=== PATIENT | female | born 1950 | race Caucasian/White ===

== ENCOUNTER 2018-12-01 07:20 | Day surgery (SDC) | payer OTHER ==
[2018-12-01] MEDS ORDERED: NA CHLORIDE 0.9% 1,000 ML ONE (07:52)
[2018-12-01] MEDS ORDERED: CEFAZOLIN/SWI 1gm 1 GM/10 ML SYR ONE (07:52)
[2018-12-01] MEDS ORDERED: LIDOCAINE 2% MPF 5 ML VIAL ONE (08:04)
[2018-12-01] MEDS ORDERED: FENTANYL CITR 100 MCG/2 ML ONE (08:04)
[2018-12-01] MEDS ORDERED: MIDAZOLAM HCL 2 MG/2 ML INJ ONE (08:04)
[2018-12-01] MEDS ORDERED: PROPOFOL 200 MG/20 ML VIAL IV ONE (08:04)
[2018-12-01] MEDS ORDERED: ONDANSETRON 4 MG/2 ML VIAL ONE (08:05)
[2018-12-01] MEDS ORDERED: EPHEDRINE SULF 50 MG/ML VIAL ONE (09:08)
[2018-12-01] MEDS ORDERED: HYDROCODONE/APAP 7.5/325 MG TAB ONE (10:26)
--- NOTE | 2018-12-01 19:23 | OP ---
Date of Procedure: 12/01/2018 Surgeon: Giancarlo Li MD Preoperative Diagnosis: Back mass. Postoperative Diagnosis: Sebaceous cyst. Procedure Performed: Wide excision of back mass 6 x 4 cm with layered closure. Estimated Blood Loss: Minimal. Specimen: Back mass. Findings: Sebaceous cyst. Anesthesia: General. Complications: None. Disposition: The patient tolerated the procedure in stable condition, taken to Recovery in good gene ral condition. Description Of Procedure: The patient was brought to the OR and placed in supine position. General anesthesia was begun. The patient was placed in the right lateral position, prepped and draped in [facility] sterile fashion. Marcaine 0.5% was infiltrated locally. A 15-blade was used to make a 6 x 4 cm incision to excise this large sebaceous cyst with a punctum in the middle. The entire cyst excised i n 1 piece. Sent to Pathology. Wound irrigated. Bleeding controlled with cautery. Flaps created. Then 2-0 chromic used to approximate subcutaneous tissue and 2-0 nylon used to close the skin in interrupted fashion. Sterile dressing was applied. The patient was awakened and taken to Recovery i n good general condition. /MODL Voice ID: [id number] Report ID: [id number]
--- NOTE | 2018-12-01 19:29 | DS ---
Date of Discharge: 12/01/2018 The patient will go to Day Surgery and home when stable. Disposition: Home. Condition: Stable. Discharge Instructions: Resume home medications and diet. Activities are tolerated. No heavy lifti ng. Remove outer dressing in 2 days. Shower. Keep wound clean and dry. Follow up in my office in 2 weeks. Call for appointment. Tylenol No. 3 one tablet p.o. q.4 p.r.n. pain, Cipro 5 mg p.o. q.12. /MODL Voice ID: [id number] Report ID: [id number]
== END 2018-12-01 10:35 | disposition home or self-care (01) ==
LOC: OR 07:20
PROVIDERS: ATTEND Surgery
PROC: 0JB70ZZ Excision of Back Subcutaneous Tissue and Fascia, Open Approach (ICD-10-PCS; principal; 2018-12-01 08:30)
DX: L72.0 Epidermal cyst (principal); E11.9 Type 2 diabetes mellitus without complications; E78.2 Mixed hyperlipidemia; I11.9 Hypertensive heart disease without heart failure; I67.2 Cerebral atherosclerosis; F17.210 Nicotine dependence, cigarettes, uncomplicated; Z79.4 Long term (current) use of insulin; Z79.899 Other long term (current) drug therapy; Z79.82 Long term (current) use of aspirin
CPT/HCPCS: 11406; 12032; 82962 ×2; 88304; J2704; J2250; J3010; J0690; J7030; J2405

== ENCOUNTER 2021-06-06 10:03 | Inpatient (IN) | payer OTHER ==
[2021-06-06 10:48] LABS: Absolute Lymphocytes (CBC) 1.5 K/uL (0.7-4.9); Basophils % 0.4 % (0-1.3); Hematocrit 49.6 % (36.0-45.0); Lymphocytes % 6.5 % (15.3-44.8); RBC Red Blood Cell Count 5.42 M/uL (3.86-4.86)
[2021-06-06 10:49] LABS: Protime INR 1.09
[2021-06-06] MEDS ORDERED: NA CHLORIDE 0.9% 500 ML ONE (10:49)
[2021-06-06 10:50] LABS: Urine Blood Trace-lysed (Negative); Urine Glucose Negative (Negative); Urine Protein Negative (Negative); Urine pH 5.5 (5.0-7.0)
[2021-06-06] MEDS ORDERED: NA CHLORIDE 0.9% 1,000 ML ONE (10:51)
[2021-06-06] MEDS ORDERED: FOLIC ACID 5 MG/ML VIAL ONE (10:51)
[2021-06-06 11:04] LABS: ALT/SGPT 19 U/L (12-78); AST/SGOT 13 U/L (15-37); Albumin 3.2 g/dL (3.4-5.0); Alkaline Phosphatase 155 U/L (45-117); BUN Blood Urea Nitrogen 19 mg/dL (7-18); Bicarbonate 25 mmol/L (21-32); Bilirubin Direct 0.2 mg/dL (0-0.2); Bilirubin Total 0.7 mg/dL (0.2-1.0); Glucose Level 186 mg/dL (74-106); Magnesium 2.2 mg/dL (1.8-2.4); NT PRO-BNP 200 pg/mL (<125); Protein, Total 7.1 g/dL (6.4-8.2); Sodium Level 139 mmol/L (136-145); Troponin (Emerg Dept Use Only) < 0.02 ng/mL (0.0-0.045)
--- NOTE | 2021-06-06 11:15 | ER ---
Nurse's Notes [facility] Name: Anna Nolasco Age: 70 yrs Sex: Female : 1950 Arrival Date: 06/06/2021 Time: 10:05 Bed 8 Private MD: Diagnosis: Weakness;Cerebral infarction, unspecified-left side , subacute;Elevated white blood cell count;Cellulitis of other parts of limb-right lower extremity Presentation: 06/06 10:09 Chief complaint: EMS states: "Pt had a CVA on Tuesday and was taken to [place]. she jd3 was released yesterday to be set up with home health. the family tried calling home health this morning to get something set up to help her start moving and getting around again and they said to call 911 so the family called us. denies having any medical problems other than general weakness related to the recent stroke.". Coronavirus screen: At this time, the client does not indicate any symptoms associated with coronavirus-19. Ebola Screen: Patient negative for fever greater than or equal to 101.5 degrees Fahrenheit, and additional compatible Ebola Virus Disease symptoms. Initial Sepsis Screen: Does the patient meet any 2 criteria? No. Patient's initial sepsis screen is negative. Does the patient have a suspected source of infection? No. Patient's initial sepsis screen is negative. Risk Assessment: Do you want to hurt yourself or someone else? Patient reports no desire to harm self or others. Onset of symptoms was June 06, 2021. 10:09 Method Of Arrival: [facility] jd3 10:09 Acuity: ANA 3 jd3 Historical: - Allergies: 10:12 No Known Allergies; jd3 - Home Meds: 10:12 Aspirin Oral [Active]; Plavix Oral [Active]; lisinopril Oral [Active]; gabapentin oral jd3 [Active]; Hydrocodone-Acetaminophen Oral [Active]; - PMHx: 10:12 Hypertensive disorder; CVA; Diabetes mellitus; cronic back pain; jd3 - PSHx: 10:12 hysterectomy; left ankle; jd3 - Immunization history:: Adult Immunizations up to date, Client reports receiving the 2nd dose of the Covid vaccine. - Social history:: Smoking status: Patient reports the use of cigarette tobacco products, smokes 1.5 packs per day. Screenin:17 Abuse screen: Denies threats or abuse. Nutritional screening: No deficits noted. as6 Tuberculosis screening: No symptoms or risk factors identified. Fall Risk Secondary diagnosis (15 points) Ambulatory Aid- Gait- Weak (10 pts.). Total [place] Fall Scale indicates Low Risk Score (25-44 pts). Side Rails Up X 2 Frequent Obs/Assesments occuring Family Present and informed to notify staff if they need to leave bedside As available Patient and Family Educated on Fall Prevention Program and strategies. Assessment: 10:06 General: Appears in no apparent distress. comfortable, Behavior is calm, cooperative. as6 Pain: Complains of pain in back. Neuro: Level of Consciousness is awake, alert, obeys commands, Oriented to person, place, time, situation. Cardiovascular: Capillary refill < 3 seconds Patient's skin is warm and dry. Respiratory: Airway is patent Respiratory effort is even, unlabored, Respiratory pattern is regular, symmetrical, Breath sounds are clear bilaterally. Derm: Skin is intact. 10:07 Cardiovascular: Edema is 1+ to BLE. Musculoskeletal: Reports weakness in generalized as6 weakness. 11:35 Reassessment: Patient and/or family updated on plan of care and expected duration. Pain as6 level reassessed. Patient is alert, oriented x 3, equal unlabored respirations, skin warm/dry/pink. no complaints or concerns at this time, water and warm blanket provided. 13:44 Reassessment: Patient and/or family updated on plan of care and expected duration. Pain as6 level reassessed. Patient is alert, oriented x 3, equal unlabored respirations, skin warm/dry/pink. Vital Signs: 10:16 BP 115 / 57; Pulse 73; Resp 18 S; Temp 98.1(TE); Pulse Ox 97% on R/A; Weight 95.71 kg jd3 (R); Height 5 ft. 3 in. (160.02 cm) (R); Pain 5/10; 11:34 BP 126 / 54; Pulse 68; Resp 18 S; Pulse Ox 98% on R/A; as6 13:43 BP 148 / 55; Pulse 85; Resp 17 S; Pulse Ox 97% on R/A; as6 10:16 Body Mass Index 37.38 (95.71 kg, 160.02 cm) jd3 ED Course: 10:05 Patient arrived in ED. iw 10:06 Gordo Ngo MD is Attending Physician. eb 10:06 Alfa Puga, BELA is Primary Nurse. as6 10:12 Triage completed. jd3 10:16 Arm band placed on. jd3 10:18 Patient has correct armband on for positive identification. Bed in low position. Call as6 light in reach. Side rails up X2. Adult w/ patient. shelter monitor on. Pulse ox on. NIBP on. 11:00 Inserted saline lock: 20 gauge in left antecubital area, using aseptic technique. Blood as6 collected. 11:05 XRAY Chest (1 view) In Process Unspecified. EDMS 11:08 CT Head Brain wo Cont In Process Unspecified. EDMS 11:13 Andrea Gonzalez DO is Hospitalizing Provider. lima 14:05 No provider procedures requiring assistance completed. Patient admitted, IV remains in jd3 place. Administered Medications: 10:58 Drug: NS 0.9% 500 ml Route: IV; Rate: bolus; Site: left antecubital; as6 12:03 Follow up: Response: No adverse reaction; IV Status: Completed infusion; IV Intake: as6 500ml 10:58 Drug: NS 0.9% 1000 ml Route: IV; Rate: 125 ml/hr; Site: left antecubital; as6 14:06 Follow up: Response: No adverse reaction; IV Status: Infusion continued upon admission jd3 10:58 Drug: foLIC Acid 1 mg Route: IVPB; Site: left antecubital; as6 12:03 Follow up: Response: No adverse reaction; IV Status: Completed infusion as6 11:32 Drug: Pepcid (famotidine) 20 mg Route: IVP; Site: left antecubital; as6 12:02 Follow up: Response: No adverse reaction as6 11:33 Drug: PlaVIX (clopidogrel) 75 mg Route: PO; as6 12:03 Follow up: Response: No adverse reaction as6 11:33 Drug: Aspirin 81 mg Route: PO; as6 12:02 Follow up: Response: No adverse reaction as6 11:33 Drug: Cefepime 1 grams Route: IVPB; Rate: 200 ml/hr; Infused Over: 30 mins; Site: left as6 antecubital; 12:02 Follow up: Response: No adverse reaction; IV Status: Completed infusion; IV Intake: as6 100ml 12:30 Drug: vancoMYCIN 1 grams Route: IVPB; Infused Over: 2 hrs; Site: left antecubital; as6 14:06 Follow up: Response: No adverse reaction; IV Status: Infusion continued upon admission jd3 Intake: 12:02 IV: 100ml; Total: 100ml. as6 12:03 IV: 500ml; Total: 600ml. as6 Outcome: 11:15 Decision to Hospitalize by Provider. lima 14:05 Admitted to Med/surg accompanied by tech, via stretcher, room 217, with chart. jd3 14:05 Condition: stable 14:05 Instructed on the need for admit, Demonstrated understanding of instructions. 14:05 Patient left the ED. [facility] Signatures: Dispatcher [employer] EDWI Gordo Ngo MD MD cha Williams, Irene, Yazmin Bingham RN [facility] Peewee Walden RN RN Symone Rob Ashby, RN RN as6 Corrections: (The following items were deleted from the chart) 10:09 10:06 Derm: Skin is intact, as6 as6 10:57 10:53 Urine Culture+BA.LAB.BRZ drawn and sent. [address] 14:05 14:05 Admitted to Med/surg accompanied by tech, via stretcher, room 216, with chart, [id number]
--- NOTE | 2021-06-06 11:16 | EDPHYS ---
Physician Documentation [facility] Name: Anna Nolasco Age: 70 yrs Sex: Female : 1950 Arrival Date: 06/06/2021 Time: 10:05 Bed 8 Private MD: ED Physician Gordo Ngo HPI: 06/06 11:01 This 70 yrs old Female presents to ER via EMS with complaints of weak, right lima side, cva on tuesday. 11:01 just out of [facility] , weakness. Onset: The symptoms/episode began/occurred 2 day(s) ago. lima Severity of symptoms: At their worst the symptoms were mild moderate in the emergency department the symptoms are unchanged. The patient has not experienced similar symptoms in the past. Historical: - Allergies: 10:12 No Known Allergies; jd3 - Home Meds: 10:12 Aspirin Oral [Active]; Plavix Oral [Active]; lisinopril Oral [Active]; gabapentin oral jd3 [Active]; Hydrocodone-Acetaminophen Oral [Active]; - PMHx: 10:12 Hypertensive disorder; CVA; Diabetes mellitus; cronic back pain; jd3 - PSHx: 10:12 hysterectomy; left ankle; jd3 - Immunization history:: Adult Immunizations up to date, Client reports receiving the 2nd dose of the Covid vaccine. - Social history:: Smoking status: Patient reports the use of cigarette tobacco products, smokes 1.5 packs per day. ROS: 11:09 Constitutional: Negative for fever, chills, and weight loss, Eyes: Negative for injury, lima pain, redness, and discharge, ENT: Negative for injury, pain, and discharge, Neck: Negative for injury, pain, and swelling, Cardiovascular: Negative for chest pain, palpitations, and edema, Respiratory: Negative for shortness of breath, cough, wheezing, and pleuritic chest pain, Abdomen/GI: Negative for abdominal pain, nausea, vomiting, diarrhea, and constipation, Back: Negative for injury and pain, : Negative for injury, bleeding, discharge, and swelling, Skin: Negative for injury, rash, and discoloration, Psych: Negative for depression, anxiety, suicide ideation, homicidal ideation, and hallucinations, Allergy/Immunology: Negative for hives, rash, and allergies, Endocrine: Negative for neck swelling, polydipsia, polyuria, polyphagia, and marked weight changes, Hematologic/Lymphatic: Negative for swollen nodes, abnormal bleeding, and unusual bruising. 11:09 MS/extremity: Positive for decreased range of motion, of the right arm and right leg. 11:09 Skin: Positive for cellulitis, of the right ankle, lateral aspect of right foot, right Achilles, medial aspect of right foot, anterior aspect of right ankle and dorsum of right foot. Exam: 11:09 Constitutional: This is a well developed, well nourished patient who is awake, alert, lima and in no acute distress. Head/Face: Normocephalic, atraumatic. Eyes: Pupils equal round and reactive to light, extra-ocular motions intact. Lids and lashes normal. Conjunctiva and sclera are non-icteric and not injected. Cornea within normal limits. Periorbital areas with no swelling, redness, or edema. ENT: Nares patent. No nasal discharge, no septal abnormalities noted. Tympanic membranes are normal and external auditory canals are clear. Oropharynx with no redness, swelling, or masses, exudates, or evidence of obstruction, uvula midline. Mucous membranes moist. Neck: Trachea midline, no thyromegaly or masses palpated, and no cervical lymphadenopathy. Supple, full range of motion without nuchal rigidity, or vertebral point tenderness. No Meningismus. Chest/axilla: Normal chest wall appearance and motion. Nontender with no deformity. No lesions are appreciated. Cardiovascular: Regular rate and rhythm with a normal S1 and S2. No gallops, murmurs, or rubs. Normal PMI, no JVD. No pulse deficits. Respiratory: Lungs have equal breath sounds bilaterally, clear to auscultation and percussion. No rales, rhonchi or wheezes noted. No increased work of breathing, no retractions or nasal flaring. Abdomen/GI: Soft, non-tender, with normal bowel sounds. No distension or tympany. No guarding or rebound. No evidence of tenderness throughout. Back: No spinal tenderness. No costovertebral tenderness. Full range of motion. Female : Normal external genitalia. Neuro: Awake and alert, GCS 15, oriented to person, place, time, and situation. Cranial nerves II-XII grossly intact. Motor strength 5/5 in all extremities. Sensory grossly intact. Cerebellar exam normal. Normal gait. Psych: Awake, alert, with orientation to person, place and time. Behavior, mood, and affect are within normal limits. 11:09 Skin: Appearance: Color: erythematous, Temperature: normal temperature, Moisture: normal moisture, petechiae, not noted, ecchymosis, not noted, abscess, not appreciated, cellulitis, that is mild, on the right ankle, lateral aspect of right foot, right Achilles, right heel, medial aspect of right foot, anterior aspect of right ankle and dorsum of right foot. Vital Signs: 10:16 BP 115 / 57; Pulse 73; Resp 18 S; Temp 98.1(TE); Pulse Ox 97% on R/A; Weight 95.71 kg jd3 (R); Height 5 ft. 3 in. (160.02 cm) (R); Pain 5/10; 11:34 BP 126 / 54; Pulse 68; Resp 18 S; Pulse Ox 98% on R/A; as6 13:43 BP 148 / 55; Pulse 85; Resp 17 S; Pulse Ox 97% on R/A; as6 10:16 Body Mass Index 37.38 (95.71 kg, 160.02 cm) jd3 MDM: 10:07 Patient medically screened. lima 11:12 Differential Diagnosis altered mental status, sepsis. Data reviewed: vital signs, [facility] nurses notes, lab test result(s), EKG, radiologic studies, CT scan, plain films. Data interpreted: shelter monitor: rate is 73 beats/min, rhythm is regular, Pulse oximetry: on room air is 79 %. Test interpretation: by ED physician or midlevel provider: ECG, plain radiologic studies. Counseling: I had a detailed discussion with the patient and/or guardian regarding: the historical points, exam findings, and any diagnostic results supporting the discharge/admit diagnosis, lab results, radiology results, the need for further work-up and treatment in the hospital. Medical screen evaluation completed. EMTALA emergency medical condition absent. Medical screen evaluation completed. [facility]. 06/06 10:23 Order name: Basic Metabolic Panel; Complete Time: 11:33 lima 06/06 10:23 Order name: CBC with Diff lima 06/06 10:23 Order name: LFT's; Complete Time: 11:33 lima 06/06 10:23 Order name: Magnesium; Complete Time: 11:33 lima 06/06 10:23 Order name: NT PRO-BNP; Complete Time: 11:33 [facility] 06/06 10:23 Order name: PT-INR; Complete Time: 10:57 [facility] 06/06 10:23 Order name: Troponin (emerg Dept Use Only); Complete Time: 11:33 [facility] 06/06 10:24 Order name: SARS-COV-2 RT PCR (Document "Date of Onset" if Symptomatic) [facility] 06/06 10:50 Order name: Urine Dipstick-Ancillary; Complete Time: 10:57 EDWA 06/06 10:57 Order name: Urine Culture [facility] 06/06 11:05 Order name: Manual Differential [facility] 06/06 11:07 Order name: Blood Culture Adult (2) [facility] 06/06 11:07 Order name: Lactate [facility] 06/06 10:23 Order name: XRAY Chest ([address] view) [facility] 06/06 10:23 Order name: EKG; Complete Time: 10:24 [facility] 06/06 10:23 Order name: Cardiac monitoring; Complete Time: 10:47 [facility] 06/06 10:23 Order name: EKG - Nurse/Tech; Complete Time: 11:33 [facility] 06/06 10:23 Order name: IV Saline Lock; Complete Time: 10:47 [facility] 06/06 10:23 Order name: Labs collected and sent; Complete Time: 10:47 [facility] 06/06 10:23 Order name: CT Head Brain wo Cont; Complete Time: 11:33 [facility] 06/06 11:07 Order name: Procalcitonin [facility] 06/06 10:23 Order name: O2 Per Protocol; Complete Time: 10:47 [facility] 06/06 10:23 Order name: O2 Sat Monitoring; Complete Time: 10:47 [facility] 06/06 10:23 Order name: Urine Dipstick-Ancillary (obtain specimen); Complete Time: 10:47 [facility] Administered Medications: 10:58 Drug: NS 0.9% 500 ml Route: IV; Rate: bolus; Site: left antecubital; as6 12:03 Follow up: Response: No adverse reaction; IV Status: Completed infusion; IV Intake: as6 500ml 10:58 Drug: NS 0.9% 1000 ml Route: IV; Rate: 125 ml/hr; Site: left antecubital; as6 14:06 Follow up: Response: No adverse reaction; IV Status: Infusion continued upon admission jd3 10:58 Drug: foLIC Acid 1 mg Route: IVPB; Site: left antecubital; as6 12:03 Follow up: Response: No adverse reaction; IV Status: Completed infusion as6 11:32 Drug: Pepcid (famotidine) 20 mg Route: IVP; Site: left antecubital; as6 12:02 Follow up: Response: No adverse reaction as6 11:33 Drug: PlaVIX (clopidogrel) 75 mg Route: PO; as6 12:03 Follow up: Response: No adverse reaction as6 11:33 Drug: Aspirin 81 mg Route: PO; as6 12:02 Follow up: Response: No adverse reaction as6 11:33 Drug: Cefepime 1 grams Route: IVPB; Rate: 200 ml/hr; Infused Over: 30 mins; Site: left as6 antecubital; 12:02 Follow up: Response: No adverse reaction; IV Status: Completed infusion; IV Intake: as6 100ml 12:30 Drug: vancoMYCIN 1 grams Route: IVPB; Infused Over: 2 hrs; Site: left antecubital; as6 14:06 Follow up: Response: No adverse reaction; IV Status: Infusion continued upon admission jd3 Disposition Summary: 06/06/21 11:15 Hospitalization Ordered Hospitalization Status: Inpatient Admission lima Provider: Andrea Gonzalez cha [facility] Condition: Stable lima Problem: new lima Symptoms: have improved lima Bed/Room Type: Standard lima Room Assignment: 217(06/06/21 13:33) eb Diagnosis - Weakness lima - Cerebral infarction, unspecified - left side , subacute lima - Elevated white blood cell count lima - Cellulitis of other parts of limb - right lower extremity lima Forms: - Medication Reconciliation Form lima - SBAR form lima Signatures: Dispatcher [employer] Gordo Clement MD MD cha Davies, Jonathon, RN RN jd3 Symone Ocampo Ashby, RN RN as6 Corrections: (The following items were deleted from the chart) 10:57 10:24 Urine Culture+BA.LAB.BRZ ordered. EDMS EDMS 13:33 11:15 lima eb
[2021-06-06] MEDS ORDERED: CEFEPIME 1 GM/VIAL ONE (11:19)
[2021-06-06] MEDS ORDERED: FAMOTIDINE 20 MG/2 ML VIAL IV ONE (11:20)
[2021-06-06] MEDS ORDERED: CLOPIDOGREL 75 MG TABLET ONE (11:20)
[2021-06-06] MEDS ORDERED: NA CHLORIDE 0.9% 100 ML ONE (11:20)
[2021-06-06] MEDS ORDERED: ASPIRIN 81 MG CHEWABLE TABLET ONE (11:20)
--- NOTE | 2021-06-06 11:23 | RAD REPORT ---
EXAM DESCRIPTION: CT - Head Brain Wo Cont - 06/06/2021 11:08 am CLINICAL HISTORY: Dizziness;Weakness COMPARISON: HEAD BRAIN W O CONTRAST dated 11/18/2014 TECHNIQUE: Axial 5 mm thick images of the head were obtained without IV contrast. All CT scans are performed using dose optimization technique as appropriate and may include automated exposure control or mA/KV adjustment according to patient size. FINDINGS: No intracranial hemorrhage, mass, edema or shift of mid-line structures. No acute cortical based infarction. There is no cortical edema or sulcal effacement. Atrophy changes are mild with sarita tricles in proportion. No significant cerebral hemisphere chronic ischemic change seen. No abnormal e xtra-axial fluid collections. There is an 8 millimeter rounded area of decreased attenuation in the l eft lateral superior mel extending into the base of the left cerebral peduncle. This is new from 201 5. This is relatively low in density favorable for chronic CVA. Subacute CVA cannot be excluded. Mastoid air cells and visualized portions of the paranasal sinuses are clear. No acute bony findings. IMPRESSION: No intracranial hemorrhage is present. No mass lesion identified. Focal decreased attenuation in the left-side mel new from 2015. This is more favorable for chronic but is an age indeterminate CVA. Correlation is needed with any focal neurologic deficits.
--- NOTE | 2021-06-06 11:36 | RAD REPORT ---
EXAM DESCRIPTION: RAD - Chest Single View - 06/06/2021 11:05 am CLINICAL HISTORY: COUGH COMPARISON: November 2018 TECHNIQUE: AP portable chest image was obtained 06/06/2021 11:05 am . FINDINGS: No focal mass or consolidation. Interstitial pattern is prominent, accentuated by shallow inspiration and under penetrated film technique. Mild interstitial edema or infiltrate suspected. Hea rt and vasculature are normal. No measurable pleural effusion and no pneumothorax. No acute bony abno rmality seen. No acute aortic findings suspected. IMPRESSION: Mild interstitial edema or infiltrate pattern.
[2021-06-06 11:43] LABS: Blood Morphology Comment NOT SEEN (NOT SEEN); Platelet Estimate ADEQ
[2021-06-06] MEDS ORDERED: VANCOMYCIN/NS 1 gm 1 GM/250 ML BAG IVPB ONE (12:30)
--- NOTE | 2021-06-06 13:00 | P.CNS ---
Date of Consult: 06/06/21 Reason for Consult: HTN Requesting Physician: Andrea Gonzalez Chief Complaint: Weakness History of Present Illness: 11:01 This 70 yrs old Female presents to ER via EMS with complaints of weak, right lima side, cva on tuesday. 11:01 just out of [facility] , weakness. Onset: The symptoms/episode began/occurred 2 day(s) ago. lima Severity of symptoms: At their worst the symptoms were mild moderate in the emergency department the symptoms are unchanged. The patient has not experienced similar symptoms in the past. Allergies propoxyphene HCl [From Darvon] Adverse Reaction (Verified 11/30/18 15:52) lightheaded Home medications list reviewed: Yes Home Medications: Metformin HCl [Glucophage] 500 mg PO BID 09/04/15 lisinopriL [Prinivil] 10 mg PO DAILY AFTER SUPPER 09/04/15 Albuterol Sulfate [Proair Respiclick] 2 puff IH Q4H PRN 06/06/21 Aspirin 1 tab PO DAILY 06/06/21 Atorvastatin Calcium [Lipitor] 1 tab PO BEDTIME 06/06/21 Benzonatate [Tessalon Perle*] 1 cap PO TID PRN 06/06/21 Clopidogrel Bisulfate [Plavix*] 1 tab PO DAILY 06/06/21 Dulaglutide [Trulicity] 3 mg SQ SEECOM 06/06/21 Gabapentin 400 mg PO TID 06/06/21 Hydrocodone/Acetaminophen [Hydrocodone-Acetamin 10-325/15] 15 ml PO DAILY 06/06/21 Insulin Glargine,Hum.rec.anlog [Lantus] 60 unit SQ BID 06/06/21 Nicotine [Nicoderm*] 1 patch TOP Q24H 06/06/21 Varenicline Tartrate 0.5 tab PO SEECOM 06/06/21 - Past Medical/Surgical History Diabetic: Yes - Family History Father Medical History: Diabetes Mother Medical History: Heart disease Review of Systems 10-point ROS is otherwise unremarkable General: Weakness Neurological: Weakness Physical Examination General: Oriented x3, Cooperative HEENT: Atraumatic Neck: Supple Respiratory: Clear to auscultation bilaterally Cardiovascular: Regular rate/rhythm, Edema Gastrointestinal: Non-distended Musculoskeletal: No clubbing, Erythema, Warmth Integumentary: No breakdown, No cyanosis Neurological: Normal speech Laboratory Data (last 24 hrs) 06/06/21 10:34: PT 12.5, INR 1.09 06/06/21 10:34: WBC 23.10 H*, Hgb 16.5 H, Hct 49.6 H, Plt Count 241 06/06/21 10:34: Sodium 139, Potassium 4.0, BUN 19 H, Creatinine 0.98, Glucose 186 H, Magnesium 2.2, Total Bilirubin 0.7, AST 13 L, ALT 19, Alkaline Phosphatase 155 H Imagings Data: EXAM DESCRIPTION: RAD - Chest Single View - 06/06/2021 11:05 am CLINICAL HISTORY: COUGH COMPARISON: November 2018 TECHNIQUE: AP portable chest image was obtained 06/06/2021 11:05 am . FINDINGS: No focal mass or consolidation. Interstitial pattern is prominent, accentuated by shallow inspiration and under penetrated film technique. Mild interstitial edema or infiltrate suspected. Heart and vasculature are normal. No measurable pleural effusion and no pneumothorax. No acute bony abnormality seen. No acute aortic findings suspected. IMPRESSION: Mild interstitial edema or infiltrate pattern. Conclusions/Impression: Hypercalcemia -Continue IVF HTN -Continue Lisinopril DM II with polyneuropathy -RISS -Continue Gabapentin RLE Cellulitis -Continue Vancomycine; monitor level -Continue Cefepime Thank you kindly for the consultation. Case reviewed with Dr. Gonzalez
--- NOTE | 2021-06-06 13:56 | P.HP ---
Certification for Inpatient Patient admitted to: Inpatient With expected LOS: >2 Midnights Patient will require the following post-hospital care: Other (Inpatient rehab) Practitioner: I am a practitioner with admitting privileges, knowledge of patient current condition, hospital course, and medical plan of care. Services: Services provided to patient in accordance with Admission requirements found in Title 42 Section 412.3 of the Code of Federal Regulations Patient History Date of Service: 06/06/21 Primary Care Provider: JF Del Real Reason for admission: Weakness, irritation to the right lower extremity. Recent hospitalization History of Present Illness: 70-year-old female with recent history of CVA with right upper extremity weakness, hypertension, diabetes, COPD, tobacco abuse, and hyperlipidemia. Patient was recently hospitalized at [facility] for right upper extremity weakness. Patient found to have acute CVA. Patient was discharged from the hospital to home yesterday. Since being home patient has felt weak. Some irritation to the right lower extremity noted. She denies any fever, chills. Poor appetite noted. No significant chest pain, shortness of breath. Patient came to the ER for further evaluation. In the ER patient was evaluate. Patient found to have some slight irritation to the right lower extremity with erythema and mild warmth. White count 23, hemoglobin 16. Platelet count 241. Sodium 139, potassium 4.0. BUN of 19, creatinine 0.9 with a GFR 56. Glucose 186. Calcium 10.2. Lactic acid normal. Chest x-ray unremarkable. CT head shows subacute stroke. Patient admitted for further evaluation and treatment. Allergies propoxyphene HCl [From Darvon] Adverse Reaction (Verified 11/30/18 15:52) lightheaded Home medications list reviewed: Yes Home Medications: Ezetimibe [Zetia] 10 mg PO DAILY 09/04/15 Gabapentin [Neurontin] 400 mg PO TID 09/04/15 Hydrocodone/Acetaminophen [Hydrocodon-Acetaminophn 10-325] 1 each PO Q6HP PRN 09/04/15 Metformin HCl [Glucophage] 500 mg PO BID 09/04/15 lisinopriL [Prinivil] 10 mg PO DAILY AFTER SUPPER 09/04/15 Aspirin [Aspirin EC 81 MG] 81 mg PO DAILY 11/30/18 Atorvastatin Calcium [Lipitor] 40 mg PO BEDTIME 11/30/18 Bupropion *Xl* [Wellbutrin XL] 150 mg PO DAILY 11/30/18 Doxycycline Hyclate 100 mg PO BID 11/30/18 Dulaglutide [Trulicity] 0.75 mg SQ EVERY 7TH DAY 11/30/18 Insulin Glargine,Hum.rec.anlog [Lantus Solostar] 35 unit SQ BID 11/30/18 Linagliptin [Tradjenta] 5 mg PO DAILY 11/30/18 Mupirocin Oint [Bactroban 2% Ointment] 30 gm TP TID 11/30/18 - Past Medical/Surgical History Diabetic: Yes -: Diabetes mellitus type 2 [id number] -: Hypertension -: Hyperlipidemia -: Recent CVA with right upper extremity weakness -: COPD -: Tobacco abuse -: GERD -: Diabetic neuropathy -: Bilateral knee surgery -: Hysterectomy -: Back surgery Psychosocial/ Personal History: Patient lives at home. She is - Family History Family History: Reviewed- Non-Contributory - Social History Smoking Status: Heavy Tobacco smoker (>10 cigarettes/day) Smoking therapy provided: Yes Patient receptive to therapy: No Alcohol use: No CD- Drugs: No Caffeine use: No Place of Residence: Home Review of Systems General: Weakness, Malaise, As per HPI Eyes: Unremarkable ENT: Unremarkable Respiratory: Unremarkable Cardiovascular: Unremarkable Gastrointestinal: Unremarkable Musculoskeletal: As per HPI Integumentary: As per HPI Neurological: As per HPI Lymphatics: Unremarkable Physical Examination - Studies Laboratory Data (last 24 hrs) 06/06/21 10:34: PT 12.5, INR 1.09 06/06/21 10:34: WBC 23.10 H*, Hgb 16.5 H, Hct 49.6 H, Plt Count 241 06/06/21 10:34: Sodium 139, Potassium 4.0, BUN 19 H, Creatinine 0.98, Glucose 186 H, Magnesium 2.2, Total Bilirubin 0.7, AST 13 L, ALT 19, Alkaline Phosphatase 155 H Assessment and Plan - Plan COVID: Pending CT head: COMPARISON: HEAD BRAIN W O CONTRAST dated 11/18/2014 TECHNIQUE: Axial 5 mm thick images of the head were obtained without IV contrast. All CT scans are performed using dose optimization technique as appropriate and may include automated exposure control or mA/KV adjustment according to patient size. FINDINGS: No intracranial hemorrhage, mass, edema or shift of mid-line structures. No acute cortical based infarction. There is no cortical edema or sulcal effacement. Atrophy changes are mild with ventricles in proportion. No si gnificant cerebral hemisphere chronic ischemic change seen. No abnormal extra- axial fluid collections. There is an 8 millimeter rounded area of decreased attenuation in the left lateral superior mel extending into the base of the left cerebral peduncle. This is new from 2015. This is relatively low in density favorable for chronic CVA. Subacute CVA cannot be excluded. Mastoid air cells and visualized portions of the paranasal sinuses are clear. No acute bony findings. IMPRESSION: No intracranial hemorrhage is present. No mass lesion identified. Focal decreased attenuation in the left-side mel new from 2015. This is more favorable for chronic but is an age indeterminate CVA. Correlation is needed with any focal neurologic deficits. Chest x-ray: COMPARISON: November 2018 TECHNIQUE: AP portable chest image was obtained 06/06/2021 11:05 am . FINDINGS: No focal mass or consolidation. Interstitial pattern is prominent, accentuated by shallow inspiration and under penetrated film technique. Mild interstitial edema or infiltrate suspected. Heart and vasculature are normal. No measurable pleural effusion and no pneumothorax. No acute bony abnormality seen. No acute aortic findings suspected. IMPRESSION: Mild interstitial edema or infiltrate pattern. Physical Exam: GENERAL: The patient is a well-developed, well-nourished, in no apparent distress. Alert and oriented x3. VITAL SIGNS: Reviewed HEENT: Head is normocephalic and atraumatic. Extraocular muscles are intact. Pupils are equal, round, and reactive to light and accommodation. Nares appeared normal. Mouth is well hydrated and without lesions. Mucous membranes are moist. NECK: Supple. No carotid bruits. No lymphadenopathy or thyromegaly. LUNGS: Clear to auscultation. No crackles or wheezes are heard. HEART: Regular rate and rhythm, no appreciable gallops, rubs, murmurs or extra heart sounds ABDOMEN: Soft, nontender, and nondistended. Positive bowel sounds. No hep atosplenomegaly was noted. EXTREMITIES: Mild erythema to the right lower extremity near the ankle region ch. SKIN: Normal color, turgor and temperature. No ulcerations or rashes noted. Impression: Right lower extremity cellulitis Right upper extremity weakness with recent CVA to the left mel region Weakness secondary to mild renal sufficiency likely dehydration Hypertension Hyperlipidemia Diabetes mellitus type 2 Diabetic neuropathy COPD Tobacco abuse Plan: Right lower extremity cellulitis: Patient will be admitted for further evaluation and treatment. We will start IV vancomycin and cefepime. Blood cultures obtained. Will monitor closely. Anticipate improvement. Patient with recent CVA. While physical therapy assess ambulation. Patient would benefit with inpatient rehab. We will put in consult for inpatient rehab Right upper extremity weakness with recent CVA to the left mel region: Patient recently hospitalized at [facility]. Patient was discharged home. While physical therapy assess ambulation. Patient would benefit with inpatient rehab. Rehab consultation placed. Anticipate approval for inpatient rehab. Continue aspirin 81 mg daily, Plavix 25 mg daily, Lipitor 80 mg daily, and folic acid. Continue DVT prophylaxis. We will also order physical therapy and Occupational Therapy to evaluate. Weakness secondary to mild renal sufficiency likely dehydration: Continue with above plan of care. We will continue with IV fluids. Electrolyte protocol in place. Hypertension: Continue with lisinopril 10 mg daily. Will monitor and adjust appropriately. Hyperlipidemia: Continue with Lipitor 80 mg daily Diabetes mellitus type 2: Accu-Cheks in place. Continue with sliding scale. Obtain and verify home medication. Diabetic neuropathy: Continue with gabapentin 100 mg twice daily COPD: We will provide COPD medication. Provide incentive spirometer. Tobacco abuse: We will provide nicotine patch. Cessation education provided. Code Status: Patient is DNR DVT prophylaxis: Lovenox Advanced Care Planning-30 minutes: Discussed the plan of care at length. Patient would benefit with inpatient rehab. Anticipate approval. Discharge Plan: Other (Inpatient rehab) Plan to discharge in: 72 Hours - Advance Directives Does patient have a Living Will: No Does patient have a Durable POA for Healthcare: No - Code Status/Comfort Care Code Status Assessed: Yes (Patient is DNR) Time Spent Managing Pts Care (In Minutes): 55
[2021-06-06] MEDS ORDERED: IPRATROPIUM BROM 0.5MG/2.5ML NEB PRN (14:26)
[2021-06-06] MEDS ORDERED: ACETAMINOPHEN 500 MG TAB PO PRN (14:26)
[2021-06-06] MEDS ORDERED: ALBUTEROL 2.5 MG/3 ML NEB SOL NEB PRN (14:26)
[2021-06-06] MEDS ORDERED: NA CHLORIDE 0.9% 1,000 ML IV SCH (14:26)
[2021-06-06] MEDS ORDERED: ONDANSETRON 4 MG/2 ML VIAL IV PRN (14:26)
[2021-06-06 14:57] VITALS: BMI 37.3
[2021-06-06] MEDS ORDERED: VANCOMYCIN 750 MG in NA CHLORIDE 0.9% 150 ML IVPB ONE (15:00)
[2021-06-06] MEDS: INSULIN -REGULAR HUMAN 50 UNIT/0.5 ML ML SQ SCH ×2 (16:30→21:00)
[2021-06-06] MEDS: ARFORMOTEROL TARTRATE 15 MCG/2 ML VIAL.NEB NEB SCH (19:50)
[2021-06-06] MEDS ORDERED: CEFEPIME 1 GM/VIAL IV SCH (21:00)
[2021-06-06] MEDS: MUPIROCIN 2% OINT 22GM TUBE TOP SCH (21:49)
[2021-06-06] MEDS: ATORVASTATIN 80 MG TAB PO SCH (21:50)
[2021-06-06] MEDS: GABAPENTIN 100 MG CAP PO SCH (21:50)
[2021-06-06] MEDS: FAMOTIDINE 20 MG TAB PO SCH (21:50)
[2021-06-07] MEDS: CEFEPIME 1 GM in NA CHLORIDE 0.9% 100 ML IV SCH ×2 (00:37→10:11)
[2021-06-07] MEDS: HYDROCODONE/APAP 5/325 MG TAB PO PRN (04:27)
[2021-06-07 04:41] LABS: Urine Appearance CLEAR (Clear); Urine Bilirubin NEGATIVE (Negative); Urine Blood NEGATIVE (Negative); Urine Color YELLOW (Yellow); Urine Glucose NEGATIVE (Negative); Urine Protein NEGATIVE (Negative); Urine Urobilinogen 0.2 mg/dL (0.2-1.0)
[2021-06-07 05:10] LABS: Urine Microscopic Reflex NO UMIC
[2021-06-07 05:53] LABS: Absolute Lymphocytes (CBC) 2.4 K/uL (0.7-4.9); Basophils % 0.7 % (0-1.3); Hematocrit 46.7 % (36.0-45.0); Lymphocytes % 19.3 % (15.3-44.8); MPV 8.5 fL (7.6-11.3)
--- NOTE | 2021-06-07 05:54 | P.PN ---
Subjective Date of Service: 06/07/21 Primary Care Provider: JF Del Real Chief Complaint: Weakness Subjective: Improving, Doing well Physical Examination - Vital Signs Temperature: 97.8 F Blood Pressure: 108/76 Pulse: 68 Respirations: 20 Pulse Ox (%): 97 - Studies Laboratory Data (last 24 hrs) 06/06/21 10:34: PT 12.5, INR 1.09 06/06/21 10:34: WBC 23.10 H*, Hgb 16.5 H, Hct 49.6 H, Plt Count 241 06/06/21 10:34: Sodium 139, Potassium 4.0, BUN 19 H, Creatinine 0.98, Glucose 186 H, Magnesium 2.2, Total Bilirubin 0.7, AST 13 L, ALT 19, Alkaline Phosphatase 155 H Assessment & Plan Discharge Plan: Other (Inpatient rehab) Plan to discharge in: 24 Hours Physician Review Additional Text: COVID: negative CT head: COMPARISON: HEAD BRAIN W O CONTRAST dated 11/18/2014 TECHNIQUE: Axial 5 mm thick images of the head were obtained without IV contrast. All CT scans are performed using dose optimization technique as appropriate and may include automated exposure control or mA/KV adjustment according to patient size. FINDINGS: No intracranial hemorrhage, mass, edema or shift of mid-line structures. No acute cortical based infarction. There is no cortical edema or sulcal effacement. Atrophy changes are mild with ventricles in proportion. No significant cerebral hemisphere chronic ischemic change seen. No abnormal extra- axial fluid collections. There is an 8 millimeter rounded area of decreased attenuation in the left lateral superior mel extending into the base of the left cerebral peduncle. This is new from 2014. This is relatively low in density favorable for chronic CVA. Subacute CVA cannot be excluded. Mastoid air cells and visualized portions of the paranasal sinuses are clear. No acute bony findings. IMPRESSION: No intracranial hemorrhage is present. No mass lesion identified. Focal decreased attenuation in the left-side mel new from 2014. This is more favorable for chronic but is an age indeterminate CVA. Correlation is needed with any focal neurologic deficits. Chest x-ray: COMPARISON: November 2018 TECHNIQUE: AP portable chest image was obtained 06/06/2021 11:05 am . FINDINGS: No focal mass or consolidation. Interstitial pattern is prominent, accentuated by shallow inspiration and under penetrated film technique. Mild interstitial edema or infiltrate suspected. Heart and vasculature are normal. No measurable pleural effusion and no pneumothorax. No acute bony abnormality seen. No acute aortic findings suspected. IMPRESSION: Mild interstitial edema or infiltrate pattern. Physical Exam: GENERAL: The patient is a well-developed, well-nourished, in no apparent distress. Alert and oriented x3. VITAL SIGNS: Reviewed. Vital signs stable HEENT: Neck supple LUNGS: Clear to auscultation. No crackles or wheezes are heard. HEART: Regular rate and rhythm, no appreciable gallops, rubs, murmurs or extra heart sounds ABDOMEN: Soft, nontender, and nondistended. Positive bowel sounds. No hepatosplenomegaly was noted. EXTREMITIES: Erythema to the right lower extremity region near the ankle improved. No significant edema. No significant pain Impression: Right lower extremity cellulitis Right upper extremity weakness with recent CVA to the left mel region Weakness secondary to mild renal sufficiency likely dehydration Hypertension Hyperlipidemia Diabetes mellitus type 2 Diabetic neuropathy COPD Tobacco abuse Plan: Right lower extremity cellulitis: Overall erythema improved. No significant swelling. Continue IV vancomycin and cefepime. Blood cultures obtained. Urine culture negative. Anticipate improvement and transition to oral medication likely tomorrow. Physical therapy, Occupational Therapy to evaluate patient for inpatient rehab. Patient recently hospitalized at [facility] for CVA. Anticipate approval for inpatient rehab likely as early as tomorrow. I will turn to service over to the hospitalist team tomorrow. I will go over the plan of care with him. Right upper extremity weakness with recent CVA to the left mel region: Weakness to the right upper extremity improved. Patient recently hospitalized at [facility]. Patient was discharged home but had increased weakness. Will have physical therapy and Occupational Therapy assess ambulation in need for inpatient rehab. Patient would benefit with inpatient rehab especially with rec ent CVA. Rehab consultation placed. Anticipate approval for inpatient rehab. Continue aspirin 81 mg daily, Plavix 25 mg daily, Lipitor 80 mg daily, and folic acid 1 mg. Continue DVT prophylaxisLovenox. Weakness secondary to mild renal sufficiency likely dehydration: Continue with above plan of care. Overall improved. Discontinue IV fluids. Electrolyte protocol in place. Encourage oral intake. Hypertension: Continue with lisinopril 10 mg daily. Will monitor and adjust appropriately. Hyperlipidemia: Continue with Lipitor 80 mg daily Diabetes mellitus type 2: Accu-Cheks in place. Continue with sliding scale. Obtain and verify home medication. Recent A1c 10.1 at [facility]. Patient previously on Metformin, Lantus and Trulicity. Will start low-dose Lantus 5 units subcu daily today. Will need to monitor and adjust medication. Diabetic neuropathy: Continue with gabapentin 100 mg twice daily COPD: Continue with COPD medication. Patient will likely require medication at discharge. Encourage incentive spirometer. Tobacco abuse: Continue with nicotine patch. Cessation education provided. Code Status: Patient is DNR DVT prophylaxis: Lovenox Advanced Care Planning-30 minutes: Patient to be evaluated for inpatient rehab. Anticipate approval Time Spent Managing Pts Care (In Minutes): 55
[2021-06-07 06:12] LABS: Magnesium 2.1 mg/dL (1.8-2.4); Thyroid Stimulating Hormone 2.19 uIU/mL (0.360-3.740)
[2021-06-07] MEDS: INSULIN -REGULAR HUMAN 50 UNIT/0.5 ML ML SQ SCH ×4 (07:30→21:00)
[2021-06-07] MEDS: ARFORMOTEROL TARTRATE 15 MCG/2 ML VIAL.NEB NEB SCH ×2 (07:50→20:00)
[2021-06-07] MEDS: lisinopriL 10 MG TAB PO SCH (09:00)
[2021-06-07] MEDS: NICOTINE 21 MG/PAT TD SCH (09:00)
[2021-06-07] MEDS ORDERED: GLUCAGON 1 MG/VIAL IM PRN (09:26)
[2021-06-07] MEDS ORDERED: D50W 25 GM/50 ML SYRINGE IV PRN (09:26)
[2021-06-07] MEDS: ENOXAPARIN 40 MG/0.4 ML SQ SCH (10:11)
[2021-06-07] MEDS: CLOPIDOGREL 75 MG TABLET PO SCH (10:12)
[2021-06-07] MEDS: FAMOTIDINE 20 MG TAB PO SCH ×2 (10:12→21:34)
[2021-06-07] MEDS: GABAPENTIN 100 MG CAP PO SCH ×2 (10:13→21:34)
[2021-06-07] MEDS: MUPIROCIN 2% OINT 22GM TUBE TOP SCH (10:13)
[2021-06-07] MEDS: FOLIC ACID 1 MG TABLET PO SCH (10:13)
[2021-06-07] MEDS: ASPIRIN EC 81 MG TAB PO SCH (10:23)
[2021-06-07] MEDS ORDERED: VANCOMYCIN 1.75 GM in NA CHLORIDE 0.9% 500 ML IVPB SCH (15:00)
[2021-06-07 20:53] VITALS: O2SAT 99
[2021-06-07] MEDS: AMOX/K CLAV 500 MG TAB PO SCH (21:33)
[2021-06-07] MEDS: ATORVASTATIN 80 MG TAB PO SCH (21:34)
[2021-06-08] MEDS: MUPIROCIN 2% OINT 22GM TUBE TOP SCH ×2 (01:49→09:00)
[2021-06-08 03:46] LABS: Basophils % 1.1 % (0-1.3); Hematocrit 43.9 % (36.0-45.0); MPV 8.6 fL (7.6-11.3)
[2021-06-08 04:14] LABS: Magnesium 2.1 mg/dL (1.8-2.4); Potassium 4.3 mmol/L (3.5-5.1)
[2021-06-08] MEDS: HYDROCODONE/APAP 5/325 MG TAB PO PRN (07:01)
[2021-06-08] MEDS: INSULIN -REGULAR HUMAN 50 UNIT/0.5 ML ML SQ SCH ×2 (07:30→11:30)
[2021-06-08] MEDS: ARFORMOTEROL TARTRATE 15 MCG/2 ML VIAL.NEB NEB SCH (08:00)
[2021-06-08] MEDS ORDERED: INSULIN GLARGINE 100 UNITS/ML SQ SCH (08:00)
[2021-06-08] MEDS: lisinopriL 10 MG TAB PO SCH (09:00)
[2021-06-08] MEDS: FOLIC ACID 1 MG TABLET PO SCH (09:04)
[2021-06-08] MEDS: CLOPIDOGREL 75 MG TABLET PO SCH (09:04)
[2021-06-08] MEDS: ASPIRIN EC 81 MG TAB PO SCH (09:04)
[2021-06-08] MEDS: GABAPENTIN 100 MG CAP PO SCH (09:04)
[2021-06-08] MEDS: FAMOTIDINE 20 MG TAB PO SCH (09:04)
[2021-06-08] MEDS: NICOTINE 21 MG/PAT TD SCH (09:04)
[2021-06-08] MEDS: ENOXAPARIN 40 MG/0.4 ML SQ SCH (09:06)
[2021-06-08] MEDS ORDERED: INSULIN GLARGINE 100 UNIT/ML SQ SCH (09:20)
[2021-06-08] MEDS: AMOX/K CLAV 500 MG TAB PO SCH (09:24)
[2021-06-08 14:05] VITALS: TEMP 97.5
[2021-06-08 17:00] VITALS: BP 168/65
--- NOTE | 2021-06-08 18:49 | P.PN ---
Date of Service: 06/08/21 Vital Signs Temp Pulse Resp BP Pulse Ox 97.5 F 63 20 168/65 H 96 06/08/21 16:00 06/08/21 16:00 06/08/21 16:00 06/08/21 16:00 06/08/21 16:00 Microbiology Results 06/06/21 10:45 Catheterized Urine Nisula Count - Final No growth. 06/06/21 10:45 Catheterized Urine - Final No growth. 06/06/21 11:08 Blood - Blood Aerobic Blood Culture - Preliminary No growth in 24 hours. 06/06/21 11:08 Blood - Blood Anaerobic Blood Culture - Preliminary No growth in 24 hours. 06/06/21 11:20 Blood - Blood Aerobic Blood Culture - Preliminary No growth in 24 hours. 06/06/21 11:20 Blood - Blood Anaerobic Blood Culture - Preliminary No growth in 24 hours. Assessment/ Plan: Nephrology No dyspnea No chest pain Feeling better today. No acute events overnight Vitals, medications, blood work and imaging reviewed in the chart General: Oriented x3, Cooperative HEENT: Atraumatic Neck: Supple Respiratory: Clear to auscultation bilaterally Cardiovascular: Regular rate/rhythm, Edema Gastrointestinal: Non-distended Musculoskeletal: No clubbing, Erythema, Warmth Integumentary: No breakdown, No cyanosis Neurological: Normal speech Laboratory Data (last 24 hrs) 06/06/21 10:34: PT 12.5, INR 1.09 06/06/21 10:34: WBC 23.10 H*, Hgb 16.5 H, Hct 49.6 H, Plt Count 241 06/06/21 10:34: Sodium 139, Potassium 4.0, BUN 19 H, Creatinine 0.98, Glucose 186 H, Magnesium 2.2, Total Bilirubin 0.7, AST 13 L, ALT 19, Alkaline Phosphatase 155 H Imagings Data: EXAM DESCRIPTION: RAD - Chest Single View - 06/06/2021 11:05 am CLINICAL HISTORY: COUGH COMPARISON: November 2018 TECHNIQUE: AP portable chest image was obtained 06/06/2021 11:05 am . FINDINGS: No focal mass or consolidation. Interstitial pattern is prominent, accentuated by shallow inspiration and under penetrated film technique. Mild interstitial edema or infiltrate suspected. Heart and vasculature are normal. No measurable pleural effusion and no pneumothorax. No acute bony abnormality seen. No acute aortic findings suspected. IMPRESSION: Mild interstitial edema or infiltrate pattern. Conclusions/Impression: Hypercalcemia -Continue IVF -May need further evaluation if no improvement HTN -Continue Lisinopril DM II with polyneuropathy -RISS -Continue Gabapentin RLE Cellulitis -Continue Augmentin
== END 2021-06-08 17:03 | DRG 603 ==
LOC: ER 10:03 → ERHOLD 12:36 → 2ND 13:55
PROVIDERS: ADMIT Family Medicine; ATTEND Hospitalist
DX: L03.115 Cellulitis of right lower limb (principal); I69.351 Hemiplegia and hemiparesis following cerebral infarction affecting right dominant side; G89.29 Other chronic pain; M54.9 Dorsalgia, unspecified; F17.210 Nicotine dependence, cigarettes, uncomplicated; D72.829 Elevated white blood cell count, unspecified; E83.52 Hypercalcemia; E11.42 Type 2 diabetes mellitus with diabetic polyneuropathy; I10 Essential (primary) hypertension; J44.9 Chronic obstructive pulmonary disease, unspecified; E78.5 Hyperlipidemia, unspecified; L53.9 Erythematous condition, unspecified; K21.9 Gastro-esophageal reflux disease without esophagitis; N28.9 Disorder of kidney and ureter, unspecified; Z66 Do not resuscitate; Z79.02 Long term (current) use of antithrombotics/antiplatelets; Z90.710 Acquired absence of both cervix and uterus; Z79.82 Long term (current) use of aspirin; Z79.84 Long term (current) use of oral hypoglycemic drugs; Z79.4 Long term (current) use of insulin; Z88.8 Allergy status to other drugs, medicaments and biological substances; Z79.899 Other long term (current) drug therapy; Z20.822 Contact with and (suspected) exposure to COVID-19
CPT/HCPCS: 36415; 70450; 71045; 80048; 80076; 81003; 82947; 83605; 83735; 83880; 84145; 84439; 84443; 84484; 85025; 85610; 87040; 87086; 87088; 93005; 94010; 94640; 96365; 96367; 96375; 97116; 97161; 97530; 99285; J0692; J1650; J1815; J3370; J7030; J7040; J7605; U0003

== ENCOUNTER 2021-06-08 09:16 | Inpatient (IN) | payer OTHER ==
--- NOTE | 2021-06-08 13:53 | R.PREADM ---
PRE-ADMISSION SCREENING FORM SCREENING DATE AND TIME 06/08/2021 10:24 (FUNERAL ATTENDANT) ANTICIPATED REHAB ADMISSION DATE 06/10/2021 REFERRING FACILITY [facility] REFERRAL DATE AND TIME 06/08/2021 10:25 (FUNERAL ATTENDANT) REFERRAL ROOM# 217 ACUTE ADMIT DATE 06/06/2021 Previous Rehabilitation(s): No. 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 Andrea Gonzalez REFERRING PHYSICIAN Dr. Andrea Gonzalez REHAB FACILITY [facility] CLINICAL LIAISON Amparo Valdez PHYSICIAN REVIEWER Dr. Stephan Durbin M.D. MR# [id number] NAME Bernie NOLASCO ADDRESS [address] [place] [address] PHONE [facility] [id number] DATE OF 1950 AGE 70 SSN# [id number] GENDER female MARITAL STATUS RACE white ADMIT FROM 02 - [facility] PRE-HOSPITAL LIVING SETTING 01 - Home (private home/apt. board/care, assisted living, fdc, transitional living) HOME TYPE AND DETAILS Type of home: mobile home # of steps to enter the residence: ramp # of steps within the residence: 0 # of levels in the residence: 1 PRE-HOSPITAL LIVING WITH Family/Relatives FAMILY SUPPORT Yes FAMILY SUPPORT DETAILS Pt lives at home with her , son, and step daughter PRIMARY FAMILY CONTACT NAME Hamilton Nolasco PRIMARY FAMILY CONTACT PHONE PRIMARY FAMILY CONTACT RELATIONSHIP Spouse PHONE PRIMARY FAMILY CONTACT ON ADM.? no IS PRIMARY FAMILY CONTACT AUTH. REP.? no 1ST EMERGENCY CONTACT Hamilton Nolasco 1ST CONTACT PHONE 1ST CONTACT RELATIONSHIP Spouse PHONE 1ST CONTACT ON ADM. no IS 1ST CONTACT AUTH. REP.? no PHONE 2ND CONTACT ON ADM.? no PATIENT EMPLOYMENT STATUS Retired (for age) PATIENT EMPLOYER No Employer PAYOR INFORMATION: 1ST PAYOR NAME Medicare 1ST PAYOR PHONE [phone] 1ST PAYOR 2ND PAYOR NAME [facility] 2ND PAYOR INJURY/ILLNESS DUE TO ACCIDENT? No ANOTHER [employer] RESPONSIBLE? No PRIMARY REHAB/ACUTE DIAGNOSIS: L CVA ONSET DATE 06/02/2021 REHAB IMPAIRMENT CATEGORY (RAÚL): 00 No RAÚL MEETS 60% rule AFFECTED EXTREMITIES: RLE, and RUE ED report: pt had CVA on tuesday the week of 06/06/2021. PRIMARY DIAGNOSIS-RELATED SURGERIES: No surgeries related to the primary diagnosis were performed. 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 therapy X-rays - GERD Altered diet Elevation of head of bed Medications Nausea/vomiting Nighttime food/fluid restrictions Nutrition RISK FOR COMPLICATIONS: - COPD Acute Resp failure Pneumonia Resp. Arrest - GERD Alteration in sleep Aspiration Dehydration Malnutrition Pain - UTI Monitor for frequency, burning, discomfort, or incontinence - Skin Breakdown Nursing will assess skin daily using assessment tool and will place on Skin Breakdown Precautions as Indicated per protocol - CVA Monitor signs and symptoms of stroke - Pain Clinical staff will assess patient's pain level every shift per protocol to monitor for pain manageme nt effectiveness Educate patient on pain management strategies Medications will be given and the pain level reassessed. Clinical Staff may employ other methods such as: massage, distraction, decrease stimulus, etc. as needed - Falls Educated pt on fall prevention strategies to reduce/eliminate fall risk Patient will be evaluated for Fall Precautions and will be placed on Fall Precautions as indicated pe r protocol. - Impaired Safety Educate patient on safety awareness strategies. Educate patient on safety hazards - Bleeding Monitor lab values - Limb Ischemia Assess circulation each shift Report any changes to MD Jenna Montenegro Monitor lab values SUMMARY OF ACUTE HOSPITALIZATION: Pt. is a 70 yo Right-handed white female. On 06/02/2021 Pt. presented to [facility] with sudden onset of right-side weak ness. On 06/02/2021 she was admitted to [facility] with diagnosis L CVA. Her impairment category is Stroke 01 - Right Body (Left Brain) (01.2). Pre-morbidly, Pt. was independent/mod-I in Locomotion, Safety Awareness, Social Cognition, Balance, T ransfers Control, Sphincter Control, Self-Care, Communication, and Endurance; and she had good Locomo tion, Social Cognition, Safety Awareness, Balance, Transfers Control, Sphincter Control, Self-Care, C ommunication, and Endurance. Currently, she has deficits of Locomotion, Safety Awareness, Balance, Transfers Control, Self-Care, a nd Endurance. Pt. is now referred to [facility] for acute in-patient rehabilitation in order to maximize patient's functional independence in activities of daily living, strength, ROM, and mobi lity. Patient has realistic goal of being discharged at assistance level CGA to independent to reside at [facility] with Family/Relatives. PAST MEDICAL HISTORY COPD Diabetes Mellitus type 2 non insulin dependent Diabetic Neuropathy GERD HTN Hyperlipidemia Recent CVA with RUE weakness Tobacco abuse PAST SURGICAL HISTORY: Bilateral Knee Surgery - date not provided in chart Hysterectomy - date not provided in chart Back Surgery - date not provided in chart MEDICATION ALLERGIES: propoxyphene HCI ENVIRONMENTAL ALLERGIES: None Known - Substance Allergies None Known - Other Allergies None Known CODE STATUS: Full code WEIGHT/HEIGHT/BMI: WEIGHT 211 lbs HEIGHT 5' 3" BMI 37.4 DIET: - Diet Type 60g consistent carbohydrate (ADA ) - Diet - Solid Texture Regular - Diet - Liquid Texture Regular - Tube Feed N/A SKIN DIAGRAM: Back Pain intermittent level - 10/01 REVIEW OF SYSTEMS: - Gen Alert and awake Lying in bed No apparent distress Oriented to: person, time, and place - Vital Signs Temperature: 98.0 F SBP/DBP: 149/68 Pulse: 65 Resp: 20 Vital signs stable, afebrile - CVS RRR VITAL SIGNS Temperature: 98.0 F Forehead SBP/DBP: 149/68 Pulse: 65 Resp: 20 Vital signs stable, afebrile Vitals recorded by nursing 06/08/2021 at 8 am. MEDICATIONS/TREATMENT: Other- See attached MAR (Medication Administration Record). CURRENT SPHINCTER CONTROL: Pre-hospital bladder status: unspecified # of bladder accidents in the last 7 days prior to screenin Pre-hospital bowel status: unspecified # of bowel accidents in the last 7 days prior to screenin Last Bowel Movement Date: 06/08/2021 CURRENT LOCOMOTION STATUS: distance walked 40 feet FWW DETAILED CURRENT FUNCTIONAL STATUS: - Bladder accident frequency: 7-Ind - No accidents in the past 7 days - Bowel accident frequency: 7-Ind - No accidents in the past 7 days - Walking score based on distance walked: 0(N/A) score based on distance walked: 1(<=50ft) - Wheelchair score based on distance traveled: 0(N/A) QI SCORES: - Self-Care A. Eating 04-Supervision or touching assistance B. Oral hygiene 03-Partial/moderate assistance C. Toileting hygiene 02-Substantial/maximal assistance E. Shower/bathe self 88-Not attempted due to medical condition or safety concerns F. Upper body dressing 02-Substantial/maximal assistance G. Lower body dressing 02-Substantial/maximal assistance H. Putting on/taking off footwear 02-Substantial/maximal assistance - Mobility A. Roll left and right 03-Partial/moderate assistance B. Sit to lying 03-Partial/moderate assistance C. Lying to sitting on side of bed 03-Partial/moderate assistance D. Sit to stand 03-Partial/moderate assistance E. Chair/avq-be-qnzpm transfer 03-Partial/moderate assistance F. Toilet transfer 03-Partial/moderate assistance G. Car transfer 88-Not attempted due to medical condition or safety concerns I. Walk 10 feet 03-Partial/moderate assistance J. Walk 50 feet with two turns 88-Not attempted due to medical condition or safety concerns K. Walk 150 feet 88-Not attempted due to medical condition or safety concerns L. Walking 10 feet on uneven surfaces 88-Not attempted due to medical condition or safety concerns M. 1 step (curb) 88-Not attempted due to medical condition or safety concerns N. 4 steps 88-Not attempted due to medical condition or safety concerns O. 12 steps 88-Not attempted due to medical condition or safety concerns P. Picking up object 88-Not attempted due to medical condition or safety concerns R. Wheel 50 feet with two turns 88-Not attempted due to medical condition or safety concerns S. Wheel 150 feet 88-Not attempted due to medical condition or safety concerns - Bladder and Bowel Bladder continence Bowel continence - Endurance Fair - Balance Fair - Safety Awareness Fair CURRENT FUNC. DEFICITS: Self-Care, Mobility, Endurance, Balance, and Safety Awareness CURRENT / PREVIOUS ASSISTIVE DEVICES: Rolling Walker HISTORY OF FALLS. HAS THE PATIENT HAD TWO OR MORE FALLS IN THE PAST YEAR OR ANY FALL WITH INJURY IN T HE PAST YEAR?: Unknown PRIOR SURGERY. DID THE PATIENT HAVE MAJOR SURGERY DURING THE 100 DAYS PRIOR TO ADMISSION?: Unknown THERAPY NOTES FROM ACUTE CARE: Attached. SPECIAL NEEDS: - Safety Concerns Skin breakdown precautions needed due to skin breakdown risk Bed alarm Falls PRECAUTIONS: - Aspiration Precaution Monitor for signs of aspiration - Fall Precaution Bed alarm TABS alarm Wheel chair alarm PATIENT NEEDS ACTIVE AND ONGOING THERAPEUTIC INTERVENTION OF MULTIPLE THERAPY DISCIPLINES, INCLUDING: - Dietary and Nutrition Adequate Nutrition. Nutritional Education. Nutritional Supplements. - Occupational Therapy Cognitive Retraining. ADL Training. Adaptive Equipment. Community Reintegration. Eating. Household Ta sks. Patient/Family Education. Safety Awareness. Transfer Training. UE ROM. UE Strengthening. - Speech Therapy Cognitive Training. Expressive Language Skills. Memory Strategies. Receptive Language Skills. Speech Intelligibility Training. - Physical Therapy Balance Training. Evaluate and Treat. Gait Training. LE ROM. LE Strengthening. Medical Equipment Asse ssment and Evaluation. Mobility Training. Modalities Training. Patient/Family Education. Safety Aware ness. Transfer Training. PATIENT NEEDS CLOSE MEDICAL SUPERVISION BY A REHABILITATION PHYSICIAN FOR: Coordination of Treatment Team Diabetes Management Medical and Co-Morbidity Management Wound Care Pain Management medication management PATIENT REQUIRES 24X7 REHAB NURSING FOR MEDICAL AND FUNCTIONAL MGT. OF THE FOLLOWING DEFICITS: Disease Management Medication Management Providing Safe Environment Skin Integrity Pain Management Patient/Family Education Transfers PATIENT REQUIRES INTENSIVE, COORDINATED INTERDISCIPLINARY APPROACH TO REHAB: Arranging Home Equipment/Services Discharge Planning Family Intervention/Training Fish Agent/Case Management PATIENT REHAB POTENTIAL: Adelaida NOLASCO is able and expected to receive 3 hours of individualized therapy daily on at least 5 of e very 7 days Adelaida NOLASCO's prognosis for significant practical improvement within a reasonable period of time appea rs Good Expected level of measurable improvement will be of a practical value to Adelaida NOLASCO's functional capa city or adaptations to impairments Has a viable Discharge Plan Medically appropriate; condition is sufficiently stable to participate in intensive rehab program DISCHARGE PLAN: - Estimated Length of Stay (days) 14. - Consensus on plan Discharge plan has been discussed with primary caregiver. Patient/Family is in agreement with the david n. Primary caregiver is in agreement with the plan. - Patient/Family Goals Return home independently. - Planned Living Setting Upon Discharge Home, to live with Family/Relatives. Transitional Living. RECOMMENDED CARE LEVEL: IRF RECOMMENDATION DETAILS: Recommended Admission to Comprehensive Rehabilitation Program to Increase Functional Martin SCREENER'S COMPLETENESS CONFIRMATION: - Screening Confirmation The patient data collection on this preadmission screening form is finished PHYSICIANS REVIEW AND ADMISSION DETERMINATION Admit - Based on my review of the Pre-Admission Screening results, in my medical judgment and experie nce, I concur with the findings and recommend admission to [facility], as this patient requires an IRF level of care. SIGNATURE PANEL: Clinical Liaison - [electronically] signed by BEVERLY Corrales on 06/08/2021 at 13:33 (FUNERAL ATTENDANT) Physician Reviewer - [electronically] signed by Dr. Stephan Durbin M.D. on 06/08/2021 at 13:52 (FUNERAL ATTENDANT )
[2021-06-08] MEDS ORDERED: ALBUTEROL INHALER 60 PUFF/8 GM IH PRN (17:27)
[2021-06-08] MEDS ORDERED: BENZONATATE 100 MG CAP PO PRN (17:29)
[2021-06-08] MEDS ORDERED: GLUCAGON 1 MG/VIAL IM PRN ×2 (17:33→17:42)
[2021-06-08] MEDS ORDERED: D50W 25 GM/50 ML SYRINGE IV PRN ×2 (17:33→17:42)
[2021-06-08] MEDS: MUPIROCIN 2% OINT 22GM TUBE TOP SCH (18:57)
[2021-06-08] MEDS: ARFORMOTEROL TARTRATE 15 MCG/2 ML VIAL.NEB NEB SCH (20:00)
[2021-06-08] MEDS: INSULIN -REGULAR HUMAN 50 UNIT/0.5 ML ML SQ SCH (20:19)
[2021-06-08] MEDS: ATORVASTATIN 80 MG TAB PO SCH (20:20)
[2021-06-08] MEDS: INSULIN GLARGINE 100 UNITS/ML SQ SCH (20:20)
[2021-06-08] MEDS: GABAPENTIN 400 MG CAP PO SCH (20:20)
[2021-06-08] MEDS: AMOX/K CLAV 500 MG TAB PO SCH (20:20)
[2021-06-08] MEDS: lisinopriL 10 MG TAB PO SCH (20:20)
[2021-06-09 05:18] LABS: Urine Appearance Clear (Clear); Urine Bilirubin Negative (Negative); Urine Blood Trace-lysed (Negative); Urine Color Yellow (Yellow); Urine Glucose Negative (Negative); Urine Protein Negative (Negative)
[2021-06-09 05:20] LABS: Urine Microscopic Reflex ORDER UMIC
[2021-06-09 05:21] LABS: Urine Bacteria <20 /HPF (<20); Urine RBC <5 /HPF (NONE SEEN)
[2021-06-09 06:02] LABS: Absolute Lymphocytes (CBC) 2.4 K/uL (0.7-4.9); Lymphocytes % 30.4 % (15.3-44.8); MPV 8.5 fL (7.6-11.3); RBC Red Blood Cell Count 4.86 M/uL (3.86-4.86)
[2021-06-09 06:45] LABS: Albumin 2.7 g/dL (3.4-5.0); Magnesium 2.1 mg/dL (1.8-2.4); Potassium 4.1 mmol/L (3.5-5.1); Prealbumin 14.1 mg/dL (20-40)
[2021-06-09] MEDS: INSULIN -REGULAR HUMAN 50 UNIT/0.5 ML ML SQ SCH ×4 (07:30→19:53)
[2021-06-09] MEDS: ARFORMOTEROL TARTRATE 15 MCG/2 ML VIAL.NEB NEB SCH ×2 (07:42→20:00)
[2021-06-09] MEDS: MUPIROCIN 2% OINT 22GM TUBE TOP SCH ×2 (07:47→20:02)
[2021-06-09] MEDS: HYDROCODONE/APAP 5/325 MG TAB PO PRN (07:48)
[2021-06-09] MEDS: CLOPIDOGREL 75 MG TABLET PO SCH (07:48)
[2021-06-09] MEDS: ENOXAPARIN 30 MG/0.3 ML SQ SCH (07:48)
[2021-06-09] MEDS: AMOX/K CLAV 500 MG TAB PO SCH ×2 (07:48→19:52)
[2021-06-09] MEDS: METFORMIN HCL 500 MG TAB PO SCH ×2 (07:48→08:00)
[2021-06-09] MEDS: ASPIRIN EC 81 MG TAB PO SCH (07:48)
[2021-06-09] MEDS: NICOTINE 21 MG/PAT TD SCH (07:49)
[2021-06-09] MEDS: INSULIN GLARGINE 100 UNITS/ML SQ SCH ×2 (07:50→19:51)
[2021-06-09] MEDS ORDERED: ENOXAPARIN 40 MG/0.4 ML SQ SCH (08:00)
[2021-06-09] MEDS: GABAPENTIN 400 MG CAP PO SCH (08:05)
[2021-06-09] MEDS: GABAPENTIN 300 MG CAP PO SCH ×2 (14:15→19:52)
--- NOTE | 2021-06-09 17:30 | PAPE ---
POST ADMISSION PHYSICIAN EVALUATION PATIENT: [facility] MR# [id number] REFERRING DOCTOR Dr. Andrea Gonzalez EVALUATION DATE AND TIME 06/09/2021 17:27 (MANAGER LONG TERM CARE) NAME Bernie MARLOW DATE OF 1950 AGE 70 PHONE SSN# [id number] GENDER female EVALUATING PHYSICIAN Dr. Stephan Durbin M.D. 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 PATIENT NEEDS CLOSE MEDICAL SUPERVISION BY A REHABILITATION PHYSICIAN FOR: Coordination of Treatment Team Diabetes Management Medical and Co-Morbidity Management Wound Care Pain Management medication management PATIENT REQUIRES 24X7 REHAB NURSING FOR MEDICAL AND FUNCTIONAL MGT. OF THE FOLLOWING DEFICITS: Disease Management Medication Management Providing Safe Environment Skin Integrity Pain Management Patient/Family Education Transfers PATIENT REQUIRES INTENSIVE, COORDINATED INTERDISCIPLINARY APPROACH TO REHAB: Arranging Home Equipment/Services Discharge Planning Family Intervention/Training Rim Turning Finisher/Case Management LIST OF IDENTIFIED AND POTENTIAL PROBLEMS: Alteration in leisure activities Bladder, Incontinence Bowel, Incontinence Diabetes, Hyperglycemia/hypoglycemia Issues Falls, Actual or Potential Infection, Actual or Potential Mobility Impaired Pain, Alteration in Comfort Self Care Deficit Skin Integrity, Actual or Potential Urinary Tract Infection (UTI), Actual or Potential RISK FOR COMPLICATIONS - COPD Acute Resp failure. Pneumonia. Resp. Arrest. - GERD Alteration in sleep. Aspiration. Dehydration. Malnutrition. Pain. - UTI Monitor for frequency, burning, discomfort, or incontinence. - Skin Breakdown Nursing will assess skin daily using assessment tool and will place on Skin Breakdown Precautions as Indicated per protocol. - CVA Monitor signs and symptoms of stroke. - Pain Clinical staff will assess patient's pain level every shift per protocol to monitor for pain manageme nt effectiveness. Educate patient on pain management strategies. Medications will be given and the pa in level reassessed. Clinical Staff may employ other methods such as: massage, distraction, decrease stimulus, etc. as needed. - Falls Educated pt on fall prevention strategies to reduce/eliminate fall risk. Patient will be evaluated fo r Fall Precautions and will be placed on Fall Precautions as indicated per protocol. - Impaired Safety Educate patient on safety awareness strategies. Educate patient on safety hazards. - Bleeding Monitor lab values. - Limb Ischemia Assess circulation each shift. Report any changes to MD. - Sespsis Monitor lab values. INTERVENTIONS - COPD 02 sats. Medications. Nebulizers. Oxygen. Resp. therapy. X-rays. - GERD Altered diet. Elevation of head of bed. Medications. Nausea/vomiting. Nighttime food/fluid restrictio ns. Nutrition. PATIENT COULD BE AT RISK FOR COMPLICATIONS FROM ADVERSE MEDICAL CONDITIONS DUE TO HIS/HER COMORBIDITI ES AND THE RIGORS OF THE INTENSIVE REHABILLITATION PROGRAM. METHODS OR INTERVENTIONS TO AVOID COMPLIC ATIONS INCLUDE: - Bleeding Assess lab values and manage abnormalities. Nursing to teach precautions for anti-coagulation therapy . Stroke patients assessed for lethargy or change in status. Wound to be assessed every shift. - Infection Clinical staff to assess and manage the signs and symptoms of infection including fever, redness, war mth, etc. - Urinary Tract Infection - Aspiration Clinical staff will assess and manage coughing, drooling, congestion. - Falls Patient will be evaluated for Fall Precautions and will be placed on Fall Precautions as indicated pe r protocol. - Skin Breakdown Nursing will assess skin daily using assessment tool and will place on Skin Breakdown Precautions as indicated per protocol. - Pain Clinical staff may employ non-medication methods such as massage, distraction, decrease stimulus, etc . as needed. Clinical staff will assess patient's pain level every shift per protocol to assess and e nsure pain management effectiveness. Medications will be given and the pain level re-assessed. PRELIMINARY PLAN OF CARE: - Physical Therapy Patient needs Physical Therapy for a daily minimum of 1.5 hours at least 5 out of 7 days, to improve: Mobility, Strengthening, Transfers, Stretching, ROM, Endurance, Ability to manage stairs, Gait, and Balance. - Speech Therapy Patient needs Speech Therapy for a daily minimum of 0.5 hours at least 5 out of 7 days, to improve: S wallowing, Cognition, Language Skills, and Compensatory Strategies. - Rehabilitation Nursing Patient requires 24x7 Rehabilitation Nursing for: Pain Issues, Identifying and preventing risk factor s, Monitoring and reporting current medical conditions, Assisting with ambulation and transfer, Peter ting with all ADL-s, Teaching patients about disease process and medications, Family teaching, Provid ing safe environment, Bowel and Bladder Issues, Skin Integrity, and Medication Management. Patient needs Rim Turning Finisher and/or Case Management for: Discharge Planning, Arranging Home Equipmen t or Services, and Family Interventions. - Dietary and Nutrition Services Patient needs Dietary and Nutrition Services for: Adequate Nutrition, Nutritional Supplements, and Nu tritional Education. - Occupational Therapy Patient needs Occupational Therapy for a daily minimum of 1.5 hours at least 5 out of 7 days, to impr ove Activities of Daily Living, including: Eating, Grooming, Bathing, Dressing, Toileting, Toilet Tra nsfers, Community Reintegration, Higher functional activities, Adaptive Equipment, Splinting, Househo ld Tasks, and Other activities as determined. QI SCORES: - Self-Care A. Eating 04-Supervision or touching assistance B. Oral hygiene 03-Partial/moderate assistance C. Toileting hygiene 02-Substantial/maximal assistance E. Shower/bathe self 88-Not attempted due to medical condition or safety concerns F. Upper body dressing 02-Substantial/maximal assistance G. Lower body dressing 02-Substantial/maximal assistance H. Putting on/taking off footwear 02-Substantial/maximal assistance - Mobility A. Roll left and right 03-Partial/moderate assistance B. Sit to lying 03-Partial/moderate assistance C. Lying to sitting on side of bed 03-Partial/moderate assistance D. Sit to stand 03-Partial/moderate assistance E. Chair/afl-fo-doigt transfer 03-Partial/moderate assistance F. Toilet transfer 03-Partial/moderate assistance G. Car transfer 88-Not attempted due to medical condition or safety concerns I. Walk 10 feet 03-Partial/moderate assistance J. Walk 50 feet with two turns 88-Not attempted due to medical condition or safety concerns K. Walk 150 feet 88-Not attempted due to medical condition or safety concerns L. Walking 10 feet on uneven surfaces 88-Not attempted due to medical condition or safety concerns M. 1 step (curb) 88-Not attempted due to medical condition or safety concerns N. 4 steps 88-Not attempted due to medical condition or safety concerns O. 12 steps 88-Not attempted due to medical condition or safety concerns P. Picking up object 88-Not attempted due to medical condition or safety concerns R. Wheel 50 feet with two turns 88-Not attempted due to medical condition or safety concerns S. Wheel 150 feet 88-Not attempted due to medical condition or safety concerns - Bladder and Bowel Bladder continence Bowel continence - Endurance Fair - Balance Fair - Safety Awareness Fair POTENTIAL FUNCTIONAL GOALS FOR PATIENT TO ACHIEVE BY DISCHARGE: - Safety Precaution Patient will remain free from falls or injury at time of discharge. - Bed Mobility Patient will perform bed mobility at 4-Gabby level of assistance. - Transfers Patient will complete transfers from bed to chair at 4-Gabby level of assistance. - Mobility Patient will ambulate 150 ft with 4-Gabby level of assistance with RW. PATIENT REHAB POTENTIAL Adelaida MARLOW is able and expected to receive 3 hours of individualized therapy daily on at least 5 of e very 7 days Adelaida MARLOW's prognosis for significant practical improvement within a reasonable period of time appea rs Good Expected level of measurable improvement will be of a practical value to Adelaida MARLOW's functional capa city or adaptations to impairments Has a viable Discharge Plan Medically appropriate; condition is sufficiently stable to participate in intensive rehab program DISCHARGE PLAN: - Estimated Length of Stay (days) 14. - Consensus on plan Discharge plan has been discussed with primary caregiver. Patient/Family is in agreement with the david n. Primary caregiver is in agreement with the plan. - Patient/Family Goals Return home independently. - Planned Living Setting Upon Discharge Home, to live with Family/Relatives. Transitional Living. CONCLUSION ON REHABILITATION NECESSITY: I have evaluated patient's pre-admission functional status and, comparing it to the patient's post-ad mission functional status now, I conclude that the pre-admission assessment was accurate. Patient's c ondition on admission supports the medical necessity of admission to IRF. It is safe to proceed with patient's therapy program. SIGNATURE PANEL: (MANAGER LONG TERM CARE)
--- NOTE | 2021-06-09 17:31 | R.HP ---
HISTORY AND PHYSICAL FACILITY: 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 board/care, assisted living, nursing home, transitional living) PRE-HOSPITAL LIVING WITH Family/Relatives ENCOUNTER PHYSICIAN: Dr. Stephan Durbin M.D. REFERRING DOCTOR: Dr. 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 is a 70 yo Right-handed white female. On 06/02/2021 Pt. presented to [facility] with sudden onset of right-side weak ness. On 06/02/2021 she was admitted to [facility] with diagnosis L CVA. Her impairment category is Stroke 01 - Right Body (Left Brain) (01.2). Pre-morbidly, Pt. was independent/mod-I in Locomotion, Safety Awareness, Social Cognition, Balance, T ransfers Control, Sphincter Control, Self-Care, Communication, and Endurance; and she had good Locomo tion, Social Cognition, Safety Awareness, Balance, Transfers Control, Sphincter Control, Self-Care, C ommunication, and Endurance. Currently, she has deficits of Locomotion, Safety Awareness, Balance, Transfers Control, Self-Care, a nd Endurance. Pt. is now referred to [facility] for acute in-patient rehabilitation in order to maximize patient's functional independence in activities of daily living, strength, ROM, and mobi lity. Patient has realistic goal of being discharged at assistance level [facility] to independent to reside at [facility] with Family/Relatives. 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 Diabetic Neuropathy GERD HTN Hyperlipidemia Recent CVA with RUE weakness Tobacco abuse PAST SURGICAL HISTORY: Bilateral Knee Surgery - date not provided in chart Hysterectomy - date not provided in chart Back Surgery - date not provided in chart SOCIAL HISTORY: - Home Living Family/Relatives REVIEW OF SYSTEMS: - Gen No Chills Fatigue No Fever - Eyes No Double Vision No itchiness - ENMT No Difficulty Swallowing - CVS No Chest Discomfort No Chest Pain Fatigue No Weight Gain - Resp No Cough No Shortness of Breath - GI Continent No Abdominal Pain No Constipation No Diarrhea - Continent No Kidney Pain No Painful Urination No Urinary Urgency - MSK No Joint Pain Muscle Cramps Stiffness - Skin No Itching No Rash No Suspicious Lesions - Neuro Coordination Difficulty No Difficulty with Concentration No Memory Loss No Seizures Weakness - Psych No Anxiety No Depression No HIV Exposure No Persistent Infections No Seasonal Allergies - Endo No Cold/Heat Intolerance No Excessive Hunger No Excessive Thirst No Excessive Urination PHYSICAL EXAM - Gen Alert and awake Lying in bed No apparent distress Oriented to: person, time, and place - Skin No breakdown No abnormalities - Eyes No abnormalities - ENMT No abnormalities - Neck No abnormalities - CVS RRR - Chest No abnormalities - Abd Obese, soft, nontender - GI Non distended Deferred - No abnormalities - Ext no edema - MSK 4+/5 weakness in right lower extremity - Neuro 4/5 strength right upper and lower extremities. - Psych No abnormalities VITAL SIGNS Temperature: 97.6 F Forehead SBP/DBP: 141/55 Pulse: 55 Resp: 16 NURSING: - Shower allowing shower - Lab Results blood Sugar Check ACHS - Bladder care per protocol - Skin care per protocol PRECAUTIONS: - Aspiration Precaution Monitor for signs of aspiration - Fall Precaution Bed alarm TABS alarm Wheel chair alarm ACTIVITIES OOB only with supervision QI SCORES: - Self-Care A. Eating 04-Supervision or touching assistance B. Oral hygiene 03-Partial/moderate assistance C. Toileting hygiene 02-Substantial/maximal assistance E. Shower/bathe self 88-Not attempted due to medical condition or safety concerns F. Upper body dressing 02-Substantial/maximal assistance G. Lower body dressing 02-Substantial/maximal assistance H. Putting on/taking off footwear 02-Substantial/maximal assistance - Mobility A. Roll left and right 03-Partial/moderate assistance B. Sit to lying 03-Partial/moderate assistance C. Lying to sitting on side of bed 03-Partial/moderate assistance D. Sit to stand 03-Partial/moderate assistance E. Chair/ecf-us-tkvlw transfer 03-Partial/moderate assistance F. Toilet transfer 03-Partial/moderate assistance G. Car transfer 88-Not attempted due to medical condition or safety concerns I. Walk 10 feet 03-Partial/moderate assistance J. Walk 50 feet with two turns 88-Not attempted due to medical condition or safety concerns K. Walk 150 feet 88-Not attempted due to medical condition or safety concerns L. Walking 10 feet on uneven surfaces 88-Not attempted due to medical condition or safety concerns M. 1 step (curb) 88-Not attempted due to medical condition or safety concerns N. 4 steps 88-Not attempted due to medical condition or safety concerns O. 12 steps 88-Not attempted due to medical condition or safety concerns P. Picking up object 88-Not attempted due to medical condition or safety concerns R. Wheel 50 feet with two turns 88-Not attempted due to medical condition or safety concerns S. Wheel 150 feet 88-Not attempted due to medical condition or safety concerns - Bladder and Bowel Bladder continence Bowel continence - Endurance Fair - Balance Fair - Safety Awareness Fair CURRENT [facility]. DEFICITS: Self-Care, Mobility, Endurance, Balance, and Safety Awareness MEDICATIONS: - Other See attached MAR (Medication Administration Record) ASSESSMENT: Pt. is a 70 yo Right-handed white female.On 06/02/2021 Pt. presented to [facility] with sudden onset of right-side weakness.On 06/02/2021 she was admitted to [facility] with diagnosis L CVA.Her impairment category is Stroke 01 - Right Body (Left Brain) (01 .2).Pre-morbidly, Pt. was independent/mod-I in Locomotion, Safety Awareness, Social Cognition, Balanc e, Transfers Control, Sphincter Control, Self-Care, Communication, and Endurance; and she had good Lo comotion, Social Cognition, Safety Awareness, Balance, Transfers Control, Sphincter Control, Self-Car e, Communication, and Endurance.Currently, she has deficits of Locomotion, Safety Awareness, Balance, Transfers Control, Self-Care, and Endurance.Pt. is now referred to [facility] for acute in-patient rehabilitation in order to maximize patient's functional independence in activi ties of daily living, strength, ROM, and mobility.- Rehab Goal Patient has realistic goal of being discharged at assistance level [facility] to independent to reside at [facility] with Family/Relatives. for Dementia, TBI, Stroke, or others - Physical Therapy Gait dysfunction - to improve, our physical therapists will perform initial evaluation of pt's status upon admission and devise an individualized program for Gait Training, and Wheel Chair mobility Inability to transfer - to improve, our physical therapists will perform initial evaluation of pt's s tatus upon admission and devise an individualized program for Bed mobility Need for home safety evaluation - to improve, our physical therapists will perform initial evaluation of pt's status upon admission and devise an individualized program for Home Evaluation Need in caregiver upon discharge - to improve, our physical therapists will perform initial evaluatio n of pt's status upon admission and devise an individualized program for Caregiver Training New precaution - to improve, our physical therapists will perform initial evaluation of pt's status u endy admission and devise an individualized program for Patient precaution education Poor balance - to improve, our physical therapists will perform initial evaluation of pt's status upo n admission and devise an individualized program for Balance Training Poor endurance - to improve, our physical therapists will perform initial evaluation of pt's status u endy admission and devise an individualized program for Endurance Training Weakness - to improve, our physical therapists will perform initial evaluation of pt's status upon ad mission and devise an individualized program for Aquatic Therapy, Neuromuscular Reeducation, and Stre ngthening Achieving independence - to improve, our physical therapists will perform initial evaluation of pt's status upon admission and devise an individualized program for Community Reintegration Activities - Occupational Therapy ADL deficits - to improve, our occupation therapists will perform initial evaluation of pt's status u endy admission and devise an individualized program for Bathing, Bed mobility, Community Reintegration , Cooking, Dressing, Eating, Fine Motor Skills, Grooming, Homemaking, Kitchen Mobility, Laundry, Janelle ent Education, Safety Awareness, Splinting - Positioning, Transfers(Toilet, Tub, Shower), and Wheel C hair Management Need for care transition coordinator - to improve, our occupation therapists will perform initial evaluation of pt's s tatus upon admission and devise an individualized program for Caregiver Training Weakness - to improve, our occupation therapists will perform initial evaluation of pt's status upon admission and devise an individualized program for Aquatic Therapy, Balance, Endurance, UE ROM, and U E strengthening MEDICAL PLAN: - Diet Type Start 60g consistent carbohydrate (ADA 1799/1999) - Diet - Liquid Texture Start Regular - Tube Feed Start N/A - Lab Results blood Sugar Check ACHS - Bladder care per protocol - Aspiration Precaution Monitor for signs of aspiration HOB (head of bed) elevated above 30 degrees while receiving tube feed - Weight Bearing Precaution WBAT right LE - Fall Precaution Bed alarm TABS alarm Wheel chair alarm - Skin care per protocol - Other See attached MAR (Medication Administration Record) - Diet - Solid Texture Regular - Shower shower DISCHARGE PLAN: - Estimated Length of Stay (days) 14. - Consensus on plan Discharge plan has been discussed with primary caregiver. Patient/Family is in agreement with the david n. Primary caregiver is in agreement with the plan. - Patient/Family Goals Return home independently. - Planned Living Setting Upon Discharge Home, to live with Family/Relatives. Transitional Living. 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
[2021-06-09] MEDS: ATORVASTATIN 80 MG TAB PO SCH (19:52)
[2021-06-09] MEDS: lisinopriL 10 MG TAB PO SCH (19:52)
[2021-06-09] MEDS: NYSTATIN PWDR 100000 UNIT/GM TOP SCH (19:52)
[2021-06-10] MEDS: ENOXAPARIN 30 MG/0.3 ML SQ SCH (06:44)
[2021-06-10] MEDS: ARFORMOTEROL TARTRATE 15 MCG/2 ML VIAL.NEB NEB SCH ×2 (07:26→21:50)
[2021-06-10] MEDS: INSULIN -REGULAR HUMAN 50 UNIT/0.5 ML ML SQ SCH ×4 (07:30→19:59)
[2021-06-10] MEDS: AMOX/K CLAV 500 MG TAB PO SCH ×2 (07:34→19:59)
[2021-06-10] MEDS: ASPIRIN EC 81 MG TAB PO SCH (07:34)
[2021-06-10] MEDS: CLOPIDOGREL 75 MG TABLET PO SCH (07:34)
[2021-06-10] MEDS: GABAPENTIN 300 MG CAP PO SCH ×3 (07:34→19:59)
[2021-06-10] MEDS: MUPIROCIN 2% OINT 22GM TUBE TOP SCH ×2 (07:36→19:59)
[2021-06-10] MEDS: NYSTATIN PWDR 100000 UNIT/GM TOP SCH ×2 (07:36→19:59)
[2021-06-10] MEDS: NICOTINE 21 MG/PAT TD SCH (07:49)
[2021-06-10] MEDS: INSULIN GLARGINE 100 UNITS/ML SQ SCH ×2 (07:52→19:57)
[2021-06-10] MEDS: HYDROCODONE/APAP 5/325 MG TAB PO PRN ×2 (07:54→19:58)
[2021-06-10] MEDS ORDERED: DOCUSATE NA/SENNA CONC 1 TAB PO PRN (10:09)
[2021-06-10] MEDS ORDERED: POLYETHYL GLY 3350 17 GM/DOSE PO PRN (12:05)
--- NOTE | 2021-06-10 17:54 | R.PN ---
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 SUBJECTIVE: Pt denied any depression. Pt denied any Shortness of Breath. She has no new complaints. Ambulated 200' with contact guard assistance using a wheelchair. VITAL SIGNS Temperature: 97.0 F Forehead SBP/DBP: 141/71 Pulse: 64 Resp: 16 MEDICATION ALLERGIES: propoxyphene HCI ENVIRONMENTAL ALLERGIES: None Known - Substance Allergies None Known - Other Allergies None Known NURSING: - Shower allowing shower - Lab Results blood Sugar Check ACHS - Bladder care per protocol - Skin care per protocol PRECAUTIONS: - Aspiration Precaution Monitor for signs of aspiration - Fall Precaution Bed alarm TABS alarm Wheel chair alarm ACTIVITIES OOB only with supervision THERAPIES: - Dietary and Nutrition Adequate Nutrition. Nutritional Education. Nutritional Supplements. - Occupational Therapy Cognitive Retraining. ADL Training. Adaptive Equipment. Community Reintegration. Eating. Household Ta sks. Patient/Family Education. Safety Awareness. Transfer Training. UE ROM. UE Strengthening. - Speech Therapy Cognitive Training. Expressive Language Skills. Memory Strategies. Receptive Language Skills. Speech Intelligibility Training. - Physical Therapy Balance Training. Evaluate and Treat. Gait Training. LE ROM. LE Strengthening. Medical Equipment Asse ssment and Evaluation. Mobility Training. Modalities Training. Patient/Family Education. Safety Aware ness. Transfer Training. PHYSICAL EXAM - Gen Alert and awake Lying in bed No apparent distress Oriented to: person, time, and place - Skin No breakdown No abnormalities - Eyes No abnormalities - ENMT No abnormalities - Neck No abnormalities - CVS RRR - Chest No abnormalities - Abd Obese, soft, nontender - GI Non distended Deferred - No abnormalities - Ext no edema - MSK 4+/5 weakness in right lower extremity - Neuro 4/5 strength right upper and lower extremities. - Psych No abnormalities ASSESSMENT: Pt. is a 70 yo Right-handed white female.On 06/02/2021 Pt. presented to [facility] with sudden onset of right-side weakness.On 06/02/2021 she was admitted to [facility] with diagnosis L CVA.Her impairment category is Stroke 01 - Right Body (Left Brain) (01 .2).Pre-morbidly, Pt. was independent/mod-I in Locomotion, Safety Awareness, Social Cognition, Balanc e, Transfers Control, Sphincter Control, Self-Care, Communication, and Endurance; and she had good Lo comotion, Social Cognition, Safety Awareness, Balance, Transfers Control, Sphincter Control, Self-Car e, Communication, and Endurance.Currently, she has deficits of Locomotion, Safety Awareness, Balance, Transfers Control, Self-Care, and Endurance.Pt. is now referred to [facility] for acute in-patient rehabilitation in order to maximize patient's functional independence in activi ties of daily living, strength, ROM, and mobility.- Rehab Goal Patient has realistic goal of being discharged at assistance level [facility] to independent to reside at [facility] with Family/Relatives. MDM/PLAN: - Physical Therapy Gait dysfunction - to improve, our physical therapists will perform initial evaluation of pt's statu s upon admission and devise an individualized program for Gait Training, and Wheel Chair mobility Inability to transfer - to improve, our physical therapists will perform initial evaluation of pt's status upon admission and devise an individualized program for Bed mobility Need for home safety evaluation - to improve, our physical therapists will perform initial evaluatio n of pt's status upon admission and devise an individualized program for Home Evaluation Need in caregiver upon discharge - to improve, our physical therapists will perform initial evaluati on of pt's status upon admission and devise an individualized program for Caregiver Training New precaution - to improve, our physical therapists will perform initial evaluation of pt's status upon admission and devise an individualized program for Patient precaution education Poor balance - to improve, our physical therapists will perform initial evaluation of pt's status up on admission and devise an individualized program for Balance Training Poor endurance - to improve, our physical therapists will perform initial evaluation of pt's status upon admission and devise an individualized program for Endurance Training Weakness - to improve, our physical therapists will perform initial evaluation of pt's status upon a dmission and devise an individualized program for Aquatic Therapy, Neuromuscular Reeducation, and Str engthening Achieving independence - to improve, our physical therapists will perform initial evaluation of pt's status upon admission and devise an individualized program for Community Reintegration Activities - Occupational Therapy ADL deficits - to improve, our occupation therapists will perform initial evaluation of pt's status upon admission and devise an individualized program for Bathing, Bed mobility, Community Reintegratio n, Cooking, Dressing, Eating, Fine Motor Skills, Grooming, Homemaking, Kitchen Mobility, Laundry, Pat ient Education, Safety Awareness, Splinting - Positioning, Transfers(Toilet, Tub, Shower), and Wheel Chair Management Need for intensive care unit nurse - to improve, our occupation therapists will perform initial evaluation of pt's status upon admission and devise an individualized program for Caregiver Training Weakness - to improve, our occupation therapists will perform initial evaluation of pt's status upon admission and devise an individualized program for Aquatic Therapy, Balance, Endurance, UE ROM, and UE strengthening - Other See attached MAR (Medication Administration Record) - Diet Type Continue 60g consistent carbohydrate (ADA 1800/1999) - Diet - Liquid Texture Continue Regular - Tube Feed Continue N/A - Lab Results blood Sugar Check ACHS - Bladder care per protocol - Aspiration Precaution Monitor for signs of aspiration HOB (head of bed) elevated above 30 degrees while receiving tube feed - Weight Bearing Precaution WBAT right LE - Fall Precaution Bed alarm TABS alarm Wheel chair alarm - Skin care per protocol - Diet - Solid Texture Continue Regular - Shower allowing shower for Dementia, TBI, Stroke, or others FUNCTIONAL STATUS: UPDATED AT WEEKLY TEAM CONFERENCE - Bladder Same accident frequency: 7-Ind - No accidents in the past 7 days - Bowel Same accident frequency: 7-Ind - No accidents in the past 7 days - Walking Same score based on distance walked: 0(N/A) Same score based on distance walked: 1(<=50ft) - Wheelchair Same score based on distance traveled: 0(N/A) FUNCTIONAL STATUS: - Self-Care A. Eating Ind B. Grooming Lm C. Bathing sup D. Dressing - Upper Lm E. Dressing - Lower sup F. Toileting Lm - Sphincter Control G. Bladder control Lm H. Bowel control Lm - Transfers Control I. Bed/Chair/Wheelchair sup J. Toilet sup K. Tub/Shower sup - Locomotion L. Walk/Wheelchair (B) sup M. Stairs Gabby - Communication N. Comprehension (B) Lm O. Expression (B) Lm - Social Cognition P. Social Interaction Lm Q. Problem Solving Lm R. Memory Lm - Endurance Fair - Balance Fair - Safety Awareness Fair QI SCORES: - Self-Care A. Eating 04-Supervision or touching assistance B. Oral hygiene 03-Partial/moderate assistance C. Toileting hygiene 02-Substantial/maximal assistance E. Shower/bathe self 88-Not attempted due to medical condition or safety concerns F. Upper body dressing 02-Substantial/maximal assistance G. Lower body dressing 02-Substantial/maximal assistance H. Putting on/taking off footwear 02-Substantial/maximal assistance - Mobility A. Roll left and right 03-Partial/moderate assistance B. Sit to lying 03-Partial/moderate assistance C. Lying to sitting on side of bed 03-Partial/moderate assistance D. Sit to stand 03-Partial/moderate assistance E. Chair/[id number] transfer 03-Partial/moderate assistance F. Toilet transfer 03-Partial/moderate assistance G. Car transfer 88-Not attempted due to medical condition or safety concerns I. Walk 10 feet 03-Partial/moderate assistance J. Walk 50 feet with two turns 88-Not attempted due to medical condition or safety concerns K. Walk 150 feet 88-Not attempted due to medical condition or safety concerns L. Walking 10 feet on uneven surfaces 88-Not attempted due to medical condition or safety concerns M. 1 step (curb) 88-Not attempted due to medical condition or safety concerns N. 4 steps 88-Not attempted due to medical condition or safety concerns O. 12 steps 88-Not attempted due to medical condition or safety concerns P. Picking up object 88-Not attempted due to medical condition or safety concerns R. Wheel 50 feet with two turns 88-Not attempted due to medical condition or safety concerns S. Wheel 150 feet 88-Not attempted due to medical condition or safety concerns - Bladder and Bowel Bladder continence Bowel continence - Endurance Fair - Balance Fair - Safety Awareness Fair CURRENT FUNC. DEFICITS: Self-Care, Mobility, Endurance, Balance, and Safety Awareness SIGNATURE PANEL: (WATER MECHANIC)
[2021-06-10] MEDS: DOCUSATE NA/SENNA CONC 1 TAB PO SCH (19:58)
[2021-06-10] MEDS: ATORVASTATIN 80 MG TAB PO SCH (19:58)
[2021-06-10] MEDS: lisinopriL 10 MG TAB PO SCH (20:00)
[2021-06-11 06:17] LABS: Hematocrit 48.1 % (36.0-45.0); RBC Red Blood Cell Count 5.22 M/uL (3.86-4.86)
[2021-06-11 06:18] LABS: Absolute Lymphocytes (CBC) 2.7 K/uL (0.7-4.9); Basophils % 0.9 % (0-1.3); Lymphocytes % 26.3 % (15.3-44.8); MPV 8.5 fL (7.6-11.3)
[2021-06-11 06:35] LABS: Albumin 3.2 g/dL (3.4-5.0); Magnesium 2.1 mg/dL (1.8-2.4); Potassium 4.6 mmol/L (3.5-5.1); Prealbumin 18.4 mg/dL (20-40)
[2021-06-11] MEDS: MUPIROCIN 2% OINT 22GM TUBE TOP SCH ×2 (07:14→19:17)
[2021-06-11] MEDS: NICOTINE 21 MG/PAT TD SCH (07:15)
[2021-06-11] MEDS: AMOX/K CLAV 500 MG TAB PO SCH ×2 (07:15→19:16)
[2021-06-11] MEDS: ASPIRIN EC 81 MG TAB PO SCH (07:15)
[2021-06-11] MEDS: CLOPIDOGREL 75 MG TABLET PO SCH (07:15)
[2021-06-11] MEDS: GABAPENTIN 300 MG CAP PO SCH ×3 (07:15→19:16)
[2021-06-11] MEDS: NYSTATIN PWDR 100000 UNIT/GM TOP SCH ×2 (07:15→19:17)
[2021-06-11] MEDS: DOCUSATE NA/SENNA CONC 1 TAB PO SCH ×2 (07:16→19:16)
[2021-06-11] MEDS: INSULIN GLARGINE 100 UNITS/ML SQ SCH ×2 (07:16→19:17)
[2021-06-11] MEDS: ENOXAPARIN 30 MG/0.3 ML SQ SCH (07:16)
[2021-06-11] MEDS: INSULIN -REGULAR HUMAN 50 UNIT/0.5 ML ML SQ SCH ×4 (07:17→19:18)
[2021-06-11] MEDS: DULAGLUTIDE 1.5 MG SQ SCH (07:17)
[2021-06-11] MEDS: HYDROCODONE/APAP 5/325 MG TAB PO PRN ×2 (07:36→19:16)
[2021-06-11] MEDS: ARFORMOTEROL TARTRATE 15 MCG/2 ML VIAL.NEB NEB SCH ×2 (07:45→20:00)
--- NOTE | 2021-06-11 17:41 | R.PN ---
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 SUBJECTIVE: Pt denied any depression. Pt denied any Shortness of Breath. She has no new complaints. Ambulated 235' with contact guard assistance using a wheelchair. WBC 10.3, Hgb 16.1, glu 141 to 194, prealbumin 18.4. She is doing well with all therapy. VITAL SIGNS Temperature: 97.2 F Forehead SBP/DBP: 104/62 Pulse: 70 Resp: 16 MEDICATION ALLERGIES: propoxyphene HCI ENVIRONMENTAL ALLERGIES: None Known - Substance Allergies None Known - Other Allergies None Known NURSING: - Shower allowing shower - Lab Results blood Sugar Check ACHS - Bladder care per protocol - Skin care per protocol PRECAUTIONS: - Aspiration Precaution Monitor for signs of aspiration - Fall Precaution Bed alarm TABS alarm Wheel chair alarm ACTIVITIES OOB only with supervision THERAPIES: - Dietary and Nutrition Adequate Nutrition. Nutritional Education. Nutritional Supplements. - Occupational Therapy Cognitive Retraining. ADL Training. Adaptive Equipment. Community Reintegration. Eating. Household Ta sks. Patient/Family Education. Safety Awareness. Transfer Training. UE ROM. UE Strengthening. - Speech Therapy Cognitive Training. Expressive Language Skills. Memory Strategies. Receptive Language Skills. Speech Intelligibility Training. - Physical Therapy Balance Training. Evaluate and Treat. Gait Training. LE ROM. LE Strengthening. Medical Equipment Asse ssment and Evaluation. Mobility Training. Modalities Training. Patient/Family Education. Safety Aware ness. Transfer Training. PHYSICAL EXAM - Gen Alert and awake Lying in bed No apparent distress Oriented to: person, time, and place - Skin No breakdown No abnormalities - Eyes No abnormalities - ENMT No abnormalities - Neck No abnormalities - CVS RRR - Chest No abnormalities - Abd Obese, soft, nontender - GI Non distended Deferred - No abnormalities - Ext no edema - MSK 4+/5 weakness in right lower extremity - Neuro 4/5 strength right upper and lower extremities. - Psych No abnormalities ASSESSMENT: Pt. is a 70 yo Right-handed white female.On 06/02/2021 Pt. presented to [facility] with sudden onset of right-side weakness.On 06/02/2021 she was admitted to [facility] with diagnosis L CVA.Her impairment category is Stroke 01 - Right Body (Left Brain) (01 .2).Pre-morbidly, Pt. was independent/mod-I in Locomotion, Safety Awareness, Social Cognition, Balanc e, Transfers Control, Sphincter Control, Self-Care, Communication, and Endurance; and she had good Lo comotion, Social Cognition, Safety Awareness, Balance, Transfers Control, Sphincter Control, Self-Car e, Communication, and Endurance.Currently, she has deficits of Locomotion, Safety Awareness, Balance, Transfers Control, Self-Care, and Endurance.Pt. is now referred to [facility] for acute in-patient rehabilitation in order to maximize patient's functional independence in activi ties of daily living, strength, ROM, and mobility.- Rehab Goal Patient has realistic goal of being discharged at assistance level [facility] to independent to reside at [facility] with Family/Relatives. MDM/PLAN: - Physical Therapy Gait dysfunction - to improve, our physical therapists will perform initial evaluation of pt's statu s upon admission and devise an individualized program for Gait Training, and Wheel Chair mobility Inability to transfer - to improve, our physical therapists will perform initial evaluation of pt's status upon admission and devise an individualized program for Bed mobility Need for home safety evaluation - to improve, our physical therapists will perform initial evaluatio n of pt's status upon admission and devise an individualized program for Home Evaluation Need in caregiver upon discharge - to improve, our physical therapists will perform initial evaluati on of pt's status upon admission and devise an individualized program for Caregiver Training New precaution - to improve, our physical therapists will perform initial evaluation of pt's status upon admission and devise an individualized program for Patient precaution education Poor balance - to improve, our physical therapists will perform initial evaluation of pt's status up on admission and devise an individualized program for Balance Training Poor endurance - to improve, our physical therapists will perform initial evaluation of pt's status upon admission and devise an individualized program for Endurance Training Weakness - to improve, our physical therapists will perform initial evaluation of pt's status upon a dmission and devise an individualized program for Aquatic Therapy, Neuromuscular Reeducation, and Str engthening Achieving independence - to improve, our physical therapists will perform initial evaluation of pt's status upon admission and devise an individualized program for Community Reintegration Activities - Occupational Therapy ADL deficits - to improve, our occupation therapists will perform initial evaluation of pt's status upon admission and devise an individualized program for Bathing, Bed mobility, Community Reintegratio n, Cooking, Dressing, Eating, Fine Motor Skills, Grooming, Homemaking, Kitchen Mobility, Laundry, Pat ient Education, Safety Awareness, Splinting - Positioning, Transfers(Toilet, Tub, Shower), and Wheel Chair Management Need for child care specialist - to improve, our occupation therapists will perform initial evaluation of pt's status upon admission and devise an individualized program for Caregiver Training Weakness - to improve, our occupation therapists will perform initial evaluation of pt's status upon admission and devise an individualized program for Aquatic Therapy, Balance, Endurance, UE ROM, and UE strengthening - Other See attached MAR (Medication Administration Record) - Diet Type Continue 60g consistent carbohydrate (ADA 1800/1999) - Diet - Liquid Texture Continue Regular - Tube Feed Continue N/A - Lab Results blood Sugar Check ACHS - Bladder care per protocol - Aspiration Precaution Monitor for signs of aspiration HOB (head of bed) elevated above 30 degrees while receiving tube feed - Weight Bearing Precaution WBAT right LE - Fall Precaution Bed alarm TABS alarm Wheel chair alarm - Skin care per protocol - Diet - Solid Texture Continue Regular - Shower allowing shower for Dementia, TBI, Stroke, or others FUNCTIONAL STATUS: UPDATED AT WEEKLY TEAM CONFERENCE - Bladder Same accident frequency: 7-Ind - No accidents in the past 7 days - Bowel Same accident frequency: 7-Ind - No accidents in the past 7 days - Walking Same score based on distance walked: 0(N/A) Same score based on distance walked: 1(<=50ft) - Wheelchair Same score based on distance traveled: 0(N/A) FUNCTIONAL STATUS: - Self-Care A. Eating Ind B. Grooming Lm C. Bathing sup D. Dressing - Upper Lm E. Dressing - Lower sup F. Toileting Lm - Sphincter Control G. Bladder control Lm H. Bowel control Lm - Transfers Control I. Bed/Chair/Wheelchair sup J. Toilet sup K. Tub/Shower sup - Locomotion L. Walk/Wheelchair (B) sup M. Stairs Gabby - Communication N. Comprehension (B) Lm O. Expression (B) Lm - Social Cognition P. Social Interaction Lm Q. Problem Solving Lm R. Memory Lm - Endurance Fair - Balance Fair - Safety Awareness Fair QI SCORES: - Self-Care A. Eating 04-Supervision or touching assistance B. Oral hygiene 03-Partial/moderate assistance C. Toileting hygiene 02-Substantial/maximal assistance E. Shower/bathe self 88-Not attempted due to medical condition or safety concerns F. Upper body dressing 02-Substantial/maximal assistance G. Lower body dressing 02-Substantial/maximal assistance H. Putting on/taking off footwear 02-Substantial/maximal assistance - Mobility A. Roll left and right 03-Partial/moderate assistance B. Sit to lying 03-Partial/moderate assistance C. Lying to sitting on side of bed 03-Partial/moderate assistance D. Sit to stand 03-Partial/moderate assistance E. Chair/[id number] transfer 03-Partial/moderate assistance F. Toilet transfer 03-Partial/moderate assistance G. Car transfer 88-Not attempted due to medical condition or safety concerns I. Walk 10 feet 03-Partial/moderate assistance J. Walk 50 feet with two turns 88-Not attempted due to medical condition or safety concerns K. Walk 150 feet 88-Not attempted due to medical condition or safety concerns L. Walking 10 feet on uneven surfaces 88-Not attempted due to medical condition or safety concerns M. 1 step (curb) 88-Not attempted due to medical condition or safety concerns N. 4 steps 88-Not attempted due to medical condition or safety concerns O. 12 steps 88-Not attempted due to medical condition or safety concerns P. Picking up object 88-Not attempted due to medical condition or safety concerns R. Wheel 50 feet with two turns 88-Not attempted due to medical condition or safety concerns S. Wheel 150 feet 88-Not attempted due to medical condition or safety concerns - Bladder and Bowel Bladder continence Bowel continence - Endurance Fair - Balance Fair - Safety Awareness Fair CURRENT FUNC. DEFICITS: Self-Care, Mobility, Endurance, Balance, and Safety Awareness SIGNATURE PANEL: (SEATER ASSEMBLER)
[2021-06-11] MEDS: ATORVASTATIN 80 MG TAB PO SCH (19:16)
[2021-06-11] MEDS: lisinopriL 10 MG TAB PO SCH (19:17)
[2021-06-12] MEDS: ENOXAPARIN 30 MG/0.3 ML SQ SCH (07:03)
[2021-06-12] MEDS: INSULIN -REGULAR HUMAN 50 UNIT/0.5 ML ML SQ SCH ×4 (07:27→19:53)
[2021-06-12] MEDS: INSULIN GLARGINE 100 UNITS/ML SQ SCH ×2 (08:04→19:51)
[2021-06-12] MEDS: HYDROCODONE/APAP 5/325 MG TAB PO PRN ×2 (08:05→16:01)
[2021-06-12] MEDS: GABAPENTIN 300 MG CAP PO SCH ×3 (08:06→19:52)
[2021-06-12] MEDS: DOCUSATE NA/SENNA CONC 1 TAB PO SCH ×2 (08:06→19:52)
[2021-06-12] MEDS: AMOX/K CLAV 500 MG TAB PO SCH ×2 (08:06→19:51)
[2021-06-12] MEDS: ASPIRIN EC 81 MG TAB PO SCH (08:06)
[2021-06-12] MEDS: CLOPIDOGREL 75 MG TABLET PO SCH (08:07)
[2021-06-12] MEDS: ARFORMOTEROL TARTRATE 15 MCG/2 ML VIAL.NEB NEB SCH ×2 (08:57→19:45)
--- NOTE | 2021-06-12 09:48 | P.RH.PN ---
Estimated Length of Stay: 18 Expected Discharge Date: 06/26/21 Discharge Disposition Plan: Home Family Support: Yes [facility]pc Goal: Mobility, Transfers, Self Care Vital Signs: Last Vital Signs Temp 98.6 F 06/12/21 07:05 Pulse 71 06/12/21 07:05 Resp 16 06/12/21 09:05 BP 117/59 L 06/12/21 07:05 Pulse Ox 98 06/12/21 09:05 Laboratory: Laboratory Last Values WBC 10.30 K/uL (4.3-10.9) D 06/11/21 06:03 RBC 5.22 M/uL (3.86-4.86) H 06/11/21 06:03 Hgb 16.1 g/dL (12.0-15.0) H 06/11/21 06:03 Hct 48.1 % (36.0-45.0) H 06/11/21 06:03 MCV 92.1 fL (80-100) 06/11/21 06:03 MCH 30.8 pg (27.0-35.0) 06/11/21 06:03 MCHC 33.4 g/dL (32.0-36.0) 06/11/21 06:03 RDW 13.1 % (12.1-15.2) 06/11/21 06:03 Plt Count 300 K/uL (152-406) D 06/11/21 06:03 MPV 8.5 fL (7.6-11.3) 06/11/21 06:03 Neutrophils % 61.1 % (41.7-73.7) 06/11/21 06:03 Lymphocytes % 26.3 % (15.3-44.8) 06/11/21 06:03 Monocytes % 8.4 % (3.3-12.3) 06/11/21 06:03 Eosinophils % 3.3 % (0-4.4) 06/11/21 06:03 Basophils % 0.9 % (0-1.3) 06/11/21 06:03 Absolute Neutrophils 6.3 K/uL (1.8-8.0) 06/11/21 06:03 Absolute Lymphocytes 2.7 K/uL (0.7-4.9) 06/11/21 06:03 Absolute Monocytes 0.9 K/uL (0.1-1.3) 06/11/21 06:03 Absolute Eosinophils 0.3 K/uL (0-0.5) 06/11/21 06:03 Absolute Basophils 0.1 K/uL (0-0.5) 06/11/21 06:03 Sodium 142 mmol/L (136-145) 06/11/21 06:03 Potassium 4.6 mmol/L (3.5-5.1) 06/11/21 06:03 Chloride 111 mmol/L (98-107) H 06/11/21 06:03 Carbon Dioxide 27 mmol/L (21-32) 06/11/21 06:03 BUN 17 mg/dL (7-18) 06/11/21 06:03 Creatinine 0.78 mg/dL (0.55-1.3) 06/11/21 06:03 Estimated GFR 73 mL/min (=/>90) L 06/11/21 06:03 Glucose 153 mg/dL (74-106) H 06/11/21 06:03 POC Glucose 137 mg/dL (65-120) H 06/12/21 07:01 Calcium 10.9 mg/dL (8.5-10.1) H 06/11/21 06:03 Magnesium 2.1 mg/dL (1.8-2.4) 06/11/21 06:03 Albumin 3.2 g/dL (3.4-5.0) L 06/11/21 06:03 Prealbumin 18.4 mg/dL (20-40) L 06/11/21 06:03 Urine Color Yellow (Yellow) 06/09/21 05:11 Urine Appearance Clear (Clear) 06/09/21 05:11 Urine pH 6.0 (5.0-7.0) 06/09/21 05:11 Ur Specific [place] 1.020 (1.005-1.030) 06/09/21 05:11 Glucose (UA)(Auto) Negative (Negative) 06/09/21 05:11 Urine Ketones Negative (Negative) 06/09/21 05:11 Urine Blood Trace-lysed (Negative) H 06/09/21 05:11 Urine Nitrite Negative (Negative) 06/09/21 05:11 Urine Bilirubin Negative (Negative) 06/09/21 05:11 Urine Urobilinogen 1.0 mg/dL (0.2-1.0) 06/09/21 05:11 Ur Leukocyte Esterase Negative (Negative) 06/09/21 05:11 Urine RBC <5 /HPF (NONE SEEN) 06/09/21 05:11 Urine WBC None seen /HPF (<5) 06/09/21 05:11 Ur Squamous Epith Cells <5 /HPF (NONE SEEN) 06/09/21 05:11 Ur Urothelial Cells Cancelled 06/09/21 04:25 Calcium Oxalate Crystal Cancelled 06/09/21 04:25 Uric Acid Crystals Cancelled 06/09/21 04:25 Triple Phos Crystals Cancelled 06/09/21 04:25 Other Crystals Cancelled 06/09/21 04:25 Amorphous Sediment Cancelled 06/09/21 04:25 Glitter Cells Cancelled 06/09/21 04:25 Urine Bacteria <20 /HPF (<20) 06/09/21 05:11 Hyaline Casts Cancelled 06/09/21 04:25 Fine Granular Casts Cancelled 06/09/21 04:25 Coarse Granular Casts Cancelled 06/09/21 04:25 Waxy Casts Cancelled 06/09/21 04:25 RBC Casts Cancelled 06/09/21 04:25 WBC Casts Cancelled 06/09/21 04:25 Urine Mucus Cancelled 06/09/21 04:25 Urine Other Cancelled 06/09/21 04:25 Urine Trichomonas Cancelled 06/09/21 04:25 Urine Yeast Cancelled 06/09/21 04:25 Ur Yeast w Hyphae Cancelled 06/09/21 04:25 Urine Yeast (Budding) Cancelled 06/09/21 04:25 Urine Sperm Cancelled 06/09/21 04:25 Urine Culture Reflexed Not needed 06/09/21 05:11 Urine Total Volume Cancelled 06/09/21 04:25 Urine Total Protein Negative (Negative) 06/09/21 05:11 Weight: 211 lb Wound Present: No Closed Surgical Incision Present: No Negative Pressure Wound Therapy Present: No Physician Update: Labs reviewed and are stable. She is doing fairly well with all therapy. At mod assistance with ADLs. Contact guard to standby with gait and transfers. Had some loss of balance with right knee buckling requiring therapist intervention. Summary: Patient's care plan and detention goals have been reviewed and revised as necessary. Please see the Rehabilitation Signature page for all necessary signatures.
[2021-06-12] MEDS: NICOTINE 21 MG/PAT TD SCH (10:00)
[2021-06-12] MEDS: NYSTATIN PWDR 100000 UNIT/GM TOP SCH ×2 (10:01→20:00)
[2021-06-12] MEDS: MUPIROCIN 2% OINT 22GM TUBE TOP SCH ×2 (10:01→20:00)
[2021-06-12] MEDS: ATORVASTATIN 80 MG TAB PO SCH (19:52)
[2021-06-12] MEDS: lisinopriL 10 MG TAB PO SCH (19:53)
[2021-06-13] MEDS: HYDROCODONE/APAP 5/325 MG TAB PO PRN ×2 (06:27→11:47)
[2021-06-13] MEDS: ENOXAPARIN 30 MG/0.3 ML SQ SCH (06:28)
[2021-06-13] MEDS: NICOTINE 21 MG/PAT TD SCH (06:29)
[2021-06-13] MEDS: INSULIN -REGULAR HUMAN 50 UNIT/0.5 ML ML SQ SCH ×4 (07:30→19:22)
[2021-06-13] MEDS: INSULIN GLARGINE 100 UNITS/ML SQ SCH ×2 (07:40→19:21)
[2021-06-13] MEDS: CLOPIDOGREL 75 MG TABLET PO SCH (07:41)
[2021-06-13] MEDS: DOCUSATE NA/SENNA CONC 1 TAB PO SCH ×2 (07:41→19:22)
[2021-06-13] MEDS: NYSTATIN PWDR 100000 UNIT/GM TOP SCH ×2 (07:41→19:21)
[2021-06-13] MEDS: GABAPENTIN 300 MG CAP PO SCH ×3 (07:41→19:22)
[2021-06-13] MEDS: MUPIROCIN 2% OINT 22GM TUBE TOP SCH ×2 (07:41→19:21)
[2021-06-13] MEDS: AMOX/K CLAV 500 MG TAB PO SCH ×2 (07:41→19:22)
[2021-06-13] MEDS: ASPIRIN EC 81 MG TAB PO SCH (07:41)
[2021-06-13] MEDS: ARFORMOTEROL TARTRATE 15 MCG/2 ML VIAL.NEB NEB SCH ×2 (08:49→19:45)
[2021-06-13] MEDS: lisinopriL 10 MG TAB PO SCH (19:22)
[2021-06-13] MEDS: ATORVASTATIN 80 MG TAB PO SCH (19:22)
[2021-06-14] MEDS: INSULIN -REGULAR HUMAN 50 UNIT/0.5 ML ML SQ SCH ×4 (07:30→20:00)
[2021-06-14] MEDS: INSULIN GLARGINE 100 UNITS/ML SQ SCH ×2 (07:58→21:17)
[2021-06-14] MEDS: GABAPENTIN 300 MG CAP PO SCH ×3 (07:59→20:00)
[2021-06-14] MEDS: ENOXAPARIN 30 MG/0.3 ML SQ SCH (07:59)
[2021-06-14] MEDS: DOCUSATE NA/SENNA CONC 1 TAB PO SCH ×2 (07:59→19:51)
[2021-06-14] MEDS: ASPIRIN EC 81 MG TAB PO SCH (07:59)
[2021-06-14] MEDS: CLOPIDOGREL 75 MG TABLET PO SCH (07:59)
[2021-06-14] MEDS: NYSTATIN PWDR 100000 UNIT/GM TOP SCH ×2 (08:00→20:00)
[2021-06-14] MEDS: MUPIROCIN 2% OINT 22GM TUBE TOP SCH ×2 (08:00→20:00)
[2021-06-14] MEDS: NICOTINE 21 MG/PAT TD SCH (08:01)
[2021-06-14] MEDS: ARFORMOTEROL TARTRATE 15 MCG/2 ML VIAL.NEB NEB SCH ×2 (08:05→19:35)
[2021-06-14] MEDS: AMOX/K CLAV 500 MG TAB PO SCH ×2 (08:33→19:59)
[2021-06-14] MEDS: HYDROCODONE/APAP 5/325 MG TAB PO PRN ×2 (08:36→21:20)
[2021-06-14] MEDS: lisinopriL 10 MG TAB PO SCH (19:59)
[2021-06-14] MEDS: ATORVASTATIN 80 MG TAB PO SCH (20:00)
[2021-06-15] MEDS: ENOXAPARIN 30 MG/0.3 ML SQ SCH (07:01)
[2021-06-15] MEDS: NICOTINE 21 MG/PAT TD SCH (07:06)
[2021-06-15] MEDS: NYSTATIN PWDR 100000 UNIT/GM TOP SCH ×2 (07:07→19:13)
[2021-06-15] MEDS: MUPIROCIN 2% OINT 22GM TUBE TOP SCH ×2 (07:07→19:12)
[2021-06-15] MEDS: HYDROCODONE/APAP 5/325 MG TAB PO PRN ×2 (08:07→15:51)
[2021-06-15] MEDS: GABAPENTIN 300 MG CAP PO SCH ×3 (08:08→19:12)
[2021-06-15] MEDS: ASPIRIN EC 81 MG TAB PO SCH (08:08)
[2021-06-15] MEDS: CLOPIDOGREL 75 MG TABLET PO SCH (08:09)
[2021-06-15] MEDS: INSULIN GLARGINE 100 UNITS/ML SQ SCH ×2 (08:09→19:12)
[2021-06-15] MEDS: AMOX/K CLAV 500 MG TAB PO SCH ×2 (08:09→19:12)
[2021-06-15] MEDS: ARFORMOTEROL TARTRATE 15 MCG/2 ML VIAL.NEB NEB SCH ×2 (08:22→20:10)
--- NOTE | 2021-06-15 17:14 | R.PN ---
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 SUBJECTIVE: Pt denied any depression. Pt denied any Shortness of Breath. She has no new complaints. Ambulated 265' with standby assistance using a rolling walker WBC 10.3, Hgb 16.1, glu 128- 183, prealbumin 18.4. She is doing well with all therapy. VITAL SIGNS Temperature: 97.2 F Forehead SBP/DBP: 142/65 Pulse: 84 Resp: 16 MEDICATION ALLERGIES: propoxyphene HCI ENVIRONMENTAL ALLERGIES: None Known - Substance Allergies None Known - Other Allergies None Known NURSING: - Shower allowing shower - Lab Results blood Sugar Check ACHS - Bladder care per protocol - Skin care per protocol PRECAUTIONS: - Aspiration Precaution Monitor for signs of aspiration - Fall Precaution Bed alarm TABS alarm Wheel chair alarm ACTIVITIES OOB only with supervision THERAPIES: - Dietary and Nutrition Adequate Nutrition. Nutritional Education. Nutritional Supplements. - Occupational Therapy Cognitive Retraining. ADL Training. Adaptive Equipment. Community Reintegration. Eating. Household Ta sks. Patient/Family Education. Safety Awareness. Transfer Training. UE ROM. UE Strengthening. - Speech Therapy Cognitive Training. Expressive Language Skills. Memory Strategies. Receptive Language Skills. Speech Intelligibility Training. - Physical Therapy Balance Training. Evaluate and Treat. Gait Training. LE ROM. LE Strengthening. Medical Equipment Asse ssment and Evaluation. Mobility Training. Modalities Training. Patient/Family Education. Safety Aware ness. Transfer Training. PHYSICAL EXAM - Gen Alert and awake Lying in bed No apparent distress Oriented to: person, time, and place - Skin No breakdown No abnormalities - Eyes No abnormalities - ENMT No abnormalities - Neck No abnormalities - CVS RRR - Chest No abnormalities - Abd Obese, soft, nontender - GI Non distended Deferred - No abnormalities - Ext no edema - MSK 4+/5 weakness in right lower extremity - Neuro 4/5 strength right upper and lower extremities. - Psych No abnormalities ASSESSMENT: Pt. is a 70 yo Right-handed white female.On 06/02/2021 Pt. presented to [facility] with sudden onset of right-side weakness.On 06/02/2021 she was admitted to [facility] with diagnosis L CVA.Her impairment category is Stroke 01 - Right Body (Left Brain) (01 .2).Pre-morbidly, Pt. was independent/mod-I in Locomotion, Safety Awareness, Social Cognition, Balanc e, Transfers Control, Sphincter Control, Self-Care, Communication, and Endurance; and she had good Lo comotion, Social Cognition, Safety Awareness, Balance, Transfers Control, Sphincter Control, Self-Car e, Communication, and Endurance.Currently, she has deficits of Locomotion, Safety Awareness, Balance, Transfers Control, Self-Care, and Endurance.Pt. is now referred to [facility] for acute in-patient rehabilitation in order to maximize patient's functional independence in activi ties of daily living, strength, ROM, and mobility.- Rehab Goal Patient has realistic goal of being discharged at assistance level CGA to independent to reside at [facility] with Family/Relatives. MDM/PLAN: - Physical Therapy Gait dysfunction - to improve, our physical therapists will perform initial evaluation of pt's statu s upon admission and devise an individualized program for Gait Training, and Wheel Chair mobility Inability to transfer - to improve, our physical therapists will perform initial evaluation of pt's status upon admission and devise an individualized program for Bed mobility Need for home safety evaluation - to improve, our physical therapists will perform initial evaluatio n of pt's status upon admission and devise an individualized program for Home Evaluation Need in caregiver upon discharge - to improve, our physical therapists will perform initial evaluati on of pt's status upon admission and devise an individualized program for Caregiver Training New precaution - to improve, our physical therapists will perform initial evaluation of pt's status upon admission and devise an individualized program for Patient precaution education Poor balance - to improve, our physical therapists will perform initial evaluation of pt's status up on admission and devise an individualized program for Balance Training Poor endurance - to improve, our physical therapists will perform initial evaluation of pt's status upon admission and devise an individualized program for Endurance Training Weakness - to improve, our physical therapists will perform initial evaluation of pt's status upon a dmission and devise an individualized program for Aquatic Therapy, Neuromuscular Reeducation, and Str engthening Achieving independence - to improve, our physical therapists will perform initial evaluation of pt's status upon admission and devise an individualized program for Community Reintegration Activities - Occupational Therapy ADL deficits - to improve, our occupation therapists will perform initial evaluation of pt's status upon admission and devise an individualized program for Bathing, Bed mobility, Community Reintegratio n, Cooking, Dressing, Eating, Fine Motor Skills, Grooming, Homemaking, Kitchen Mobility, Laundry, Pat ient Education, Safety Awareness, Splinting - Positioning, Transfers(Toilet, Tub, Shower), and Wheel Chair Management Need for career development associate - to improve, our occupation therapists will perform initial evaluation of pt's status upon admission and devise an individualized program for Caregiver Training Weakness - to improve, our occupation therapists will perform initial evaluation of pt's status upon admission and devise an individualized program for Aquatic Therapy, Balance, Endurance, UE ROM, and UE strengthening - Other See attached MAR (Medication Administration Record) - Diet Type Continue 60g consistent carbohydrate (ADA 1800/1999) - Diet - Liquid Texture Continue Regular - Tube Feed Continue N/A - Lab Results blood Sugar Check ACHS - Bladder care per protocol - Aspiration Precaution Monitor for signs of aspiration HOB (head of bed) elevated above 30 degrees while receiving tube feed - Weight Bearing Precaution WBAT right LE - Fall Precaution Bed alarm TABS alarm Wheel chair alarm - Skin care per protocol - Diet - Solid Texture Continue Regular - Shower allowing shower for Dementia, TBI, Stroke, or others FUNCTIONAL STATUS: UPDATED AT WEEKLY TEAM CONFERENCE - Bladder Same accident frequency: 7-Ind - No accidents in the past 7 days - Bowel Same accident frequency: 7-Ind - No accidents in the past 7 days - Walking Same score based on distance walked: 0(N/A) Same score based on distance walked: 1(<=50ft) - Wheelchair Same score based on distance traveled: 0(N/A) FUNCTIONAL STATUS: - Self-Care A. Eating Ind B. Grooming Lm C. Bathing sup D. Dressing - Upper Lm E. Dressing - Lower sup F. Toileting Lm - Sphincter Control G. Bladder control Lm H. Bowel control Lm - Transfers Control I. Bed/Chair/Wheelchair sup J. Toilet sup K. Tub/Shower sup - Locomotion L. Walk/Wheelchair (B) sup M. Stairs Gabby - Communication N. Comprehension (B) Lm O. Expression (B) Lm - Social Cognition P. Social Interaction Lm Q. Problem Solving Lm R. Memory Lm - Endurance Fair - Balance Fair - Safety Awareness Fair QI SCORES: - Self-Care A. Eating 04-Supervision or touching assistance B. Oral hygiene 03-Partial/moderate assistance C. Toileting hygiene 02-Substantial/maximal assistance E. Shower/bathe self 88-Not attempted due to medical condition or safety concerns F. Upper body dressing 02-Substantial/maximal assistance G. Lower body dressing 02-Substantial/maximal assistance H. Putting on/taking off footwear 02-Substantial/maximal assistance - Mobility A. Roll left and right 03-Partial/moderate assistance B. Sit to lying 03-Partial/moderate assistance C. Lying to sitting on side of bed 03-Partial/moderate assistance D. Sit to stand 03-Partial/moderate assistance E. Chair/[id number] transfer 03-Partial/moderate assistance F. Toilet transfer 03-Partial/moderate assistance G. Car transfer 88-Not attempted due to medical condition or safety concerns I. Walk 10 feet 03-Partial/moderate assistance J. Walk 50 feet with two turns 88-Not attempted due to medical condition or safety concerns K. Walk 150 feet 88-Not attempted due to medical condition or safety concerns L. Walking 10 feet on uneven surfaces 88-Not attempted due to medical condition or safety concerns M. 1 step (curb) 88-Not attempted due to medical condition or safety concerns N. 4 steps 88-Not attempted due to medical condition or safety concerns O. 12 steps 88-Not attempted due to medical condition or safety concerns P. Picking up object 88-Not attempted due to medical condition or safety concerns R. Wheel 50 feet with two turns 88-Not attempted due to medical condition or safety concerns S. Wheel 150 feet 88-Not attempted due to medical condition or safety concerns - Bladder and Bowel Bladder continence Bowel continence - Endurance Fair - Balance Fair - Safety Awareness Fair CURRENT FUNC. DEFICITS: Self-Care, Mobility, Endurance, Balance, and Safety Awareness SIGNATURE PANEL: (SURFBOARD MAKER)
[2021-06-15] MEDS: lisinopriL 10 MG TAB PO SCH (19:12)
[2021-06-15] MEDS: ATORVASTATIN 80 MG TAB PO SCH (19:12)
[2021-06-16] MEDS: HYDROCODONE/APAP 5/325 MG TAB PO PRN ×2 (07:14→20:00)
[2021-06-16] MEDS: INSULIN GLARGINE 100 UNITS/ML SQ SCH ×2 (07:35→20:00)
[2021-06-16] MEDS: ASPIRIN EC 81 MG TAB PO SCH (08:00)
[2021-06-16 08:45] LABS: Absolute Lymphocytes (CBC) 2.5 K/uL (0.7-4.9); Basophils % 0.9 % (0-1.3); Hematocrit 47.5 % (36.0-45.0); Lymphocytes % 24.1 % (15.3-44.8); MPV 8.3 fL (7.6-11.3); RBC Red Blood Cell Count 5.13 M/uL (3.86-4.86)
[2021-06-16] MEDS: AMOX/K CLAV 500 MG TAB PO SCH ×2 (09:08→20:01)
[2021-06-16] MEDS: GABAPENTIN 300 MG CAP PO SCH ×3 (09:08→20:00)
[2021-06-16] MEDS: ENOXAPARIN 30 MG/0.3 ML SQ SCH (09:08)
[2021-06-16] MEDS: NICOTINE 21 MG/PAT TD SCH (09:09)
[2021-06-16] MEDS: CLOPIDOGREL 75 MG TABLET PO SCH (09:09)
[2021-06-16] MEDS: MUPIROCIN 2% OINT 22GM TUBE TOP SCH ×2 (09:11→20:00)
[2021-06-16] MEDS: NYSTATIN PWDR 100000 UNIT/GM TOP SCH ×2 (09:11→20:00)
[2021-06-16] MEDS: ARFORMOTEROL TARTRATE 15 MCG/2 ML VIAL.NEB NEB SCH ×3 (09:12→20:00)
--- NOTE | 2021-06-16 17:28 | R.PN ---
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 SUBJECTIVE: Pt denied any depression. Pt denied any Shortness of Breath. She has no new complaints. Ambulated 250' with standby assistance using a rolling walker. Up and down 5 steps with contact guard assistance. WBC 10.5, Hgb 15.8, glu 138-161, prealbumin 18.4. She is doing well with all therapy. VITAL SIGNS Temperature: 97.5 F Forehead SBP/DBP: 130/57 Pulse: 84 Resp: 16 MEDICATION ALLERGIES: propoxyphene HCI ENVIRONMENTAL ALLERGIES: None Known - Substance Allergies None Known - Other Allergies None Known NURSING: - Shower allowing shower - Lab Results blood Sugar Check ACHS - Bladder care per protocol - Skin care per protocol PRECAUTIONS: - Aspiration Precaution Monitor for signs of aspiration - Fall Precaution Bed alarm TABS alarm Wheel chair alarm ACTIVITIES OOB only with supervision THERAPIES: - Dietary and Nutrition Adequate Nutrition. Nutritional Education. Nutritional Supplements. - Occupational Therapy Cognitive Retraining. ADL Training. Adaptive Equipment. Community Reintegration. Eating. Household Ta sks. Patient/Family Education. Safety Awareness. Transfer Training. UE ROM. UE Strengthening. - Speech Therapy Cognitive Training. Expressive Language Skills. Memory Strategies. Receptive Language Skills. Speech Intelligibility Training. - Physical Therapy Balance Training. Evaluate and Treat. Gait Training. LE ROM. LE Strengthening. Medical Equipment Asse ssment and Evaluation. Mobility Training. Modalities Training. Patient/Family Education. Safety Aware ness. Transfer Training. PHYSICAL EXAM - Gen Alert and awake Lying in bed No apparent distress Oriented to: person, time, and place - Skin No breakdown No abnormalities - Eyes No abnormalities - ENMT No abnormalities - Neck No abnormalities - CVS RRR - Chest No abnormalities - Abd Obese, soft, nontender - GI Non distended Deferred - No abnormalities - Ext no edema - MSK 4+/5 weakness in right lower extremity - Neuro 4/5 strength right upper and lower extremities. - Psych No abnormalities ASSESSMENT: Pt. is a 70 yo Right-handed white female.On 06/02/2021 Pt. presented to [facility] with sudden onset of right-side weakness.On 06/02/2021 she was admitted to [facility] with diagnosis L CVA.Her impairment category is Stroke 01 - Right Body (Left Brain) (01 .2).Pre-morbidly, Pt. was independent/mod-I in Locomotion, Safety Awareness, Social Cognition, Balanc e, Transfers Control, Sphincter Control, Self-Care, Communication, and Endurance; and she had good Lo comotion, Social Cognition, Safety Awareness, Balance, Transfers Control, Sphincter Control, Self-Car e, Communication, and Endurance.Currently, she has deficits of Locomotion, Safety Awareness, Balance, Transfers Control, Self-Care, and Endurance.Pt. is now referred to [facility] for acute in-patient rehabilitation in order to maximize patient's functional independence in activi ties of daily living, strength, ROM, and mobility.- Rehab Goal Patient has realistic goal of being discharged at assistance level CGA to independent to reside at [facility] with Family/Relatives. MDM/PLAN: - Physical Therapy Gait dysfunction - to improve, our physical therapists will perform initial evaluation of pt's statu s upon admission and devise an individualized program for Gait Training, and Wheel Chair mobility Inability to transfer - to improve, our physical therapists will perform initial evaluation of pt's status upon admission and devise an individualized program for Bed mobility Need for home safety evaluation - to improve, our physical therapists will perform initial evaluatio n of pt's status upon admission and devise an individualized program for Home Evaluation Need in caregiver upon discharge - to improve, our physical therapists will perform initial evaluati on of pt's status upon admission and devise an individualized program for Caregiver Training New precaution - to improve, our physical therapists will perform initial evaluation of pt's status upon admission and devise an individualized program for Patient precaution education Poor balance - to improve, our physical therapists will perform initial evaluation of pt's status up on admission and devise an individualized program for Balance Training Poor endurance - to improve, our physical therapists will perform initial evaluation of pt's status upon admission and devise an individualized program for Endurance Training Weakness - to improve, our physical therapists will perform initial evaluation of pt's status upon a dmission and devise an individualized program for Aquatic Therapy, Neuromuscular Reeducation, and Str engthening Achieving independence - to improve, our physical therapists will perform initial evaluation of pt's status upon admission and devise an individualized program for Community Reintegration Activities - Occupational Therapy ADL deficits - to improve, our occupation therapists will perform initial evaluation of pt's status upon admission and devise an individualized program for Bathing, Bed mobility, Community Reintegratio n, Cooking, Dressing, Eating, Fine Motor Skills, Grooming, Homemaking, Kitchen Mobility, Laundry, Pat ient Education, Safety Awareness, Splinting - Positioning, Transfers(Toilet, Tub, Shower), and Wheel Chair Management Need for health care recruiter - to improve, our occupation therapists will perform initial evaluation of pt's status upon admission and devise an individualized program for Caregiver Training Weakness - to improve, our occupation therapists will perform initial evaluation of pt's status upon admission and devise an individualized program for Aquatic Therapy, Balance, Endurance, UE ROM, and UE strengthening - Other See attached MAR (Medication Administration Record) - Diet Type Continue 60g consistent carbohydrate (ADA 1800/1999) - Diet - Liquid Texture Continue Regular - Tube Feed Continue N/A - Lab Results blood Sugar Check ACHS - Bladder care per protocol - Aspiration Precaution Monitor for signs of aspiration HOB (head of bed) elevated above 30 degrees while receiving tube feed - Weight Bearing Precaution WBAT right LE - Fall Precaution Bed alarm TABS alarm Wheel chair alarm - Skin care per protocol - Diet - Solid Texture Continue Regular - Shower allowing shower for Dementia, TBI, Stroke, or others FUNCTIONAL STATUS: UPDATED AT WEEKLY TEAM CONFERENCE - Bladder Same accident frequency: 7-Ind - No accidents in the past 7 days - Bowel Same accident frequency: 7-Ind - No accidents in the past 7 days - Walking Same score based on distance walked: 0(N/A) Same score based on distance walked: 1(<=50ft) - Wheelchair Same score based on distance traveled: 0(N/A) FUNCTIONAL STATUS: - Self-Care A. Eating Ind B. Grooming Lm C. Bathing sup D. Dressing - Upper Lm E. Dressing - Lower sup F. Toileting Lm - Sphincter Control G. Bladder control Lm H. Bowel control Lm - Transfers Control I. Bed/Chair/Wheelchair sup J. Toilet sup K. Tub/Shower sup - Locomotion L. Walk/Wheelchair (B) sup M. Stairs Gabby - Communication N. Comprehension (B) Lm O. Expression (B) Lm - Social Cognition P. Social Interaction Lm Q. Problem Solving Lm R. Memory Lm - Endurance Fair - Balance Fair - Safety Awareness Fair QI SCORES: - Self-Care A. Eating 04-Supervision or touching assistance B. Oral hygiene 03-Partial/moderate assistance C. Toileting hygiene 02-Substantial/maximal assistance E. Shower/bathe self 88-Not attempted due to medical condition or safety concerns F. Upper body dressing 02-Substantial/maximal assistance G. Lower body dressing 02-Substantial/maximal assistance H. Putting on/taking off footwear 02-Substantial/maximal assistance - Mobility A. Roll left and right 03-Partial/moderate assistance B. Sit to lying 03-Partial/moderate assistance C. Lying to sitting on side of bed 03-Partial/moderate assistance D. Sit to stand 03-Partial/moderate assistance E. Chair/[id number] transfer 03-Partial/moderate assistance F. Toilet transfer 03-Partial/moderate assistance G. Car transfer 88-Not attempted due to medical condition or safety concerns I. Walk 10 feet 03-Partial/moderate assistance J. Walk 50 feet with two turns 88-Not attempted due to medical condition or safety concerns K. Walk 150 feet 88-Not attempted due to medical condition or safety concerns L. Walking 10 feet on uneven surfaces 88-Not attempted due to medical condition or safety concerns M. 1 step (curb) 88-Not attempted due to medical condition or safety concerns N. 4 steps 88-Not attempted due to medical condition or safety concerns O. 12 steps 88-Not attempted due to medical condition or safety concerns P. Picking up object 88-Not attempted due to medical condition or safety concerns R. Wheel 50 feet with two turns 88-Not attempted due to medical condition or safety concerns S. Wheel 150 feet 88-Not attempted due to medical condition or safety concerns - Bladder and Bowel Bladder continence Bowel continence - Endurance Fair - Balance Fair - Safety Awareness Fair [facility] DEFICITS: Self-Care, Mobility, Endurance, Balance, and Safety Awareness SIGNATURE PANEL: (EDM OPERATOR)
[2021-06-16] MEDS: lisinopriL 10 MG TAB PO SCH (19:59)
[2021-06-16] MEDS: ATORVASTATIN 80 MG TAB PO SCH (19:59)
[2021-06-16 22:08] LABS: Albumin 3.1 g/dL (3.4-5.0); Magnesium 2.3 mg/dL (1.8-2.4); Potassium 4.5 mmol/L (3.5-5.1); Prealbumin 20.3 mg/dL (20-40)
[2021-06-17] MEDS: ENOXAPARIN 30 MG/0.3 ML SQ SCH (06:50)
[2021-06-17] MEDS: NICOTINE 21 MG/PAT TD SCH (06:51)
[2021-06-17] MEDS: MUPIROCIN 2% OINT 22GM TUBE TOP SCH ×2 (06:51→20:30)
[2021-06-17] MEDS: NYSTATIN PWDR 100000 UNIT/GM TOP SCH ×2 (06:52→20:30)
[2021-06-17] MEDS: HYDROCODONE/APAP 5/325 MG TAB PO PRN ×2 (08:03→15:47)
[2021-06-17] MEDS: CLOPIDOGREL 75 MG TABLET PO SCH (08:04)
[2021-06-17] MEDS: AMOX/K CLAV 500 MG TAB PO SCH ×2 (08:04→20:29)
[2021-06-17] MEDS: ASPIRIN EC 81 MG TAB PO SCH (08:04)
[2021-06-17] MEDS: INSULIN GLARGINE 100 UNIT/ML SQ SCH ×2 (08:05→20:29)
[2021-06-17] MEDS: GABAPENTIN 300 MG CAP PO SCH ×3 (08:06→20:30)
--- NOTE | 2021-06-17 09:50 | P.RH.PN ---
Estimated Length of Stay: 18 Expected Discharge Date: 06/26/21 Discharge Disposition Plan: Home Family Support: Yes Alf Goal: Mobility, Transfers, Self Care Vital Signs: Last Vital Signs Temp 96.9 F 06/17/21 07:13 Pulse 89 06/17/21 07:13 Resp 18 06/17/21 09:03 BP 110/60 06/17/21 07:13 Pulse Ox 96 06/17/21 09:03 Laboratory: Laboratory Last Values WBC 10.50 K/uL (4.3-10.9) 06/16/21 08:23 RBC 5.13 M/uL (3.86-4.86) H 06/16/21 08:23 Hgb 15.8 g/dL (12.0-15.0) H 06/16/21 08:23 Hct 47.5 % (36.0-45.0) H 06/16/21 08:23 MCV 92.5 fL (80-100) 06/16/21 08:23 MCH 30.8 pg (27.0-35.0) 06/16/21 08:23 MCHC 33.3 g/dL (32.0-36.0) 06/16/21 08:23 RDW 13.2 % (12.1-15.2) 06/16/21 08:23 Plt Count 317 K/uL (152-406) 06/16/21 08:23 MPV 8.3 fL (7.6-11.3) 06/16/21 08:23 Neutrophils % 64.1 % (41.7-73.7) 06/16/21 08:23 Lymphocytes % 24.1 % (15.3-44.8) 06/16/21 08:23 Monocytes % 6.4 % (3.3-12.3) 06/16/21 08:23 Eosinophils % 4.5 % (0-4.4) H 06/16/21 08:23 Basophils % 0.9 % (0-1.3) 06/16/21 08:23 Absolute Neutrophils 6.7 K/uL (1.8-8.0) 06/16/21 08:23 Absolute Lymphocytes 2.5 K/uL (0.7-4.9) 06/16/21 08:23 Absolute Monocytes 0.7 K/uL (0.1-1.3) 06/16/21 08:23 Absolute Eosinophils 0.5 K/uL (0-0.5) 06/16/21 08:23 Absolute Basophils 0.1 K/uL (0-0.5) 06/16/21 08:23 Sodium 144 mmol/L (136-145) 06/16/21 08:23 Potassium 4.5 mmol/L (3.5-5.1) 06/16/21 08:23 Chloride 111 mmol/L (98-107) H 06/16/21 08:23 Carbon Dioxide 28 mmol/L (21-32) 06/16/21 08:23 BUN 16 mg/dL (7-18) 06/16/21 08:23 Creatinine 0.83 mg/dL (0.55-1.3) 06/16/21 08:23 Estimated GFR 68 mL/min (=/>90) L 06/16/21 08:23 Glucose 171 mg/dL (74-106) H 06/16/21 08:23 POC Glucose 183 mg/dL (65-120) H 06/17/21 07:07 Calcium 10.8 mg/dL (8.5-10.1) H 06/16/21 08:23 Magnesium 2.3 mg/dL (1.8-2.4) 06/16/21 08:23 Albumin 3.1 g/dL (3.4-5.0) L 06/16/21 08:23 Prealbumin 20.3 mg/dL (20-40) 06/16/21 08:23 Urine Color Yellow (Yellow) 06/09/21 05:11 Urine Appearance Clear (Clear) 06/09/21 05:11 Urine pH 6.0 (5.0-7.0) 06/09/21 05:11 Ur Specific [place] 1.020 (1.005-1.030) 06/09/21 05:11 Glucose (UA)(Auto) Negative (Negative) 06/09/21 05:11 Urine Ketones Negative (Negative) 06/09/21 05:11 Urine Blood Trace-lysed (Negative) H 06/09/21 05:11 Urine Nitrite Negative (Negative) 06/09/21 05:11 Urine Bilirubin Negative (Negative) 06/09/21 05:11 Urine Urobilinogen 1.0 mg/dL (0.2-1.0) 06/09/21 05:11 Ur Leukocyte Esterase Negative (Negative) 06/09/21 05:11 Urine RBC <5 /HPF (NONE SEEN) 06/09/21 05:11 Urine WBC None seen /HPF (<5) 06/09/21 05:11 Ur Squamous Epith Cells <5 /HPF (NONE SEEN) 06/09/21 05:11 Ur Urothelial Cells Cancelled 06/09/21 04:25 Calcium Oxalate Crystal Cancelled 06/09/21 04:25 Uric Acid Crystals Cancelled 06/09/21 04:25 Triple Phos Crystals Cancelled 06/09/21 04:25 Other Crystals Cancelled 06/09/21 04:25 Amorphous Sediment Cancelled 06/09/21 04:25 Glitter Cells Cancelled 06/09/21 04:25 Urine Bacteria <20 /HPF (<20) 06/09/21 05:11 Hyaline Casts Cancelled 06/09/21 04:25 Fine Granular Casts Cancelled 06/09/21 04:25 Coarse Granular Casts Cancelled 06/09/21 04:25 Waxy Casts Cancelled 06/09/21 04:25 RBC Casts Cancelled 06/09/21 04:25 WBC Casts Cancelled 06/09/21 04:25 Urine Mucus Cancelled 06/09/21 04:25 Urine Other Cancelled 06/09/21 04:25 Urine Trichomonas Cancelled 06/09/21 04:25 Urine Yeast Cancelled 06/09/21 04:25 Ur Yeast w Hyphae Cancelled 06/09/21 04:25 Urine Yeast (Budding) Cancelled 06/09/21 04:25 Urine Sperm Cancelled 06/09/21 04:25 Urine Culture Reflexed Not needed 06/09/21 05:11 Urine Total Volume Cancelled 06/09/21 04:25 Urine Total Protein Negative (Negative) 06/09/21 05:11 SARS-CoV-2 Rap RNA(RT-PCR) Negative (NEGATIVE) 06/13/21 05:45 Weight: 201 lb 9.6 oz Wound Present: Yes Closed Surgical Incision Present: No Negative Pressure Wound Therapy Present: No Physician Update: Labs reviewed and are stable. Ambulating 250' with walker and transferring with standby assistance. Up and down 5 steps contact guard. At SBA for ADLs and transfers using adaptive equipment for socks. Improving fine motor skills. She requires increased time to complete tasks. Comment: pt with red irration in ABD pendulum crease. powder applied apeter bath. ointment to buttox crease. no open area noted. Summary: Patient's care plan and flour distributor goals have been reviewed and revised as necessary. Please see the Rehabilitation Signature page for all necessary signatures.
[2021-06-17] MEDS: LIDOCAINE 4% PATCH TOP SCH (10:46)
[2021-06-17] MEDS: ARFORMOTEROL TARTRATE 15 MCG/2 ML VIAL.NEB NEB SCH ×2 (12:42→20:00)
[2021-06-17] MEDS: lisinopriL 10 MG TAB PO SCH (20:29)
[2021-06-17] MEDS: ATORVASTATIN 80 MG TAB PO SCH (20:29)
[2021-06-18] MEDS: ENOXAPARIN 30 MG/0.3 ML SQ SCH (07:00)
[2021-06-18] MEDS: NYSTATIN PWDR 100000 UNIT/GM TOP SCH ×2 (07:01→20:22)
[2021-06-18] MEDS: NICOTINE 21 MG/PAT TD SCH (07:01)
[2021-06-18] MEDS: MUPIROCIN 2% OINT 22GM TUBE TOP SCH ×2 (07:01→20:22)
[2021-06-18] MEDS: LIDOCAINE 4% PATCH TOP SCH (07:02)
[2021-06-18] MEDS: CLOPIDOGREL 75 MG TABLET PO SCH (07:50)
[2021-06-18] MEDS: AMOX/K CLAV 500 MG TAB PO SCH ×2 (07:50→20:20)
[2021-06-18] MEDS: GABAPENTIN 300 MG CAP PO SCH ×3 (07:50→20:21)
[2021-06-18] MEDS: INSULIN GLARGINE 100 UNIT/ML SQ SCH ×2 (07:51→20:21)
[2021-06-18] MEDS: ASPIRIN EC 81 MG TAB PO SCH (07:51)
[2021-06-18] MEDS: HYDROCODONE/APAP 5/325 MG TAB PO PRN ×2 (07:51→15:56)
[2021-06-18] MEDS: DULAGLUTIDE 1.5 MG SQ SCH (07:54)
[2021-06-18] MEDS: ARFORMOTEROL TARTRATE 15 MCG/2 ML VIAL.NEB NEB SCH ×2 (08:40→19:35)
[2021-06-18] MEDS: DOCUSATE NA/SENNA CONC 1 TAB PO PRN (20:20)
[2021-06-18] MEDS: lisinopriL 10 MG TAB PO SCH (20:21)
[2021-06-18] MEDS: ATORVASTATIN 80 MG TAB PO SCH (20:21)
[2021-06-19] MEDS: LIDOCAINE 4% PATCH TOP SCH (06:54)
[2021-06-19] MEDS: ENOXAPARIN 30 MG/0.3 ML SQ SCH (06:54)
[2021-06-19] MEDS: NICOTINE 21 MG/PAT TD SCH (06:55)
[2021-06-19] MEDS: NYSTATIN PWDR 100000 UNIT/GM TOP SCH ×2 (06:56→20:11)
[2021-06-19] MEDS: MUPIROCIN 2% OINT 22GM TUBE TOP SCH ×2 (06:56→20:11)
[2021-06-19] MEDS: AMOX/K CLAV 500 MG TAB PO SCH ×2 (08:00→20:11)
[2021-06-19] MEDS: ASPIRIN EC 81 MG TAB PO SCH (08:00)
[2021-06-19] MEDS: CLOPIDOGREL 75 MG TABLET PO SCH (08:00)
[2021-06-19] MEDS: HYDROCODONE/APAP 5/325 MG TAB PO PRN ×2 (08:01→16:06)
[2021-06-19] MEDS: GABAPENTIN 300 MG CAP PO SCH ×3 (08:01→20:11)
[2021-06-19] MEDS: INSULIN GLARGINE 100 UNIT/ML SQ SCH ×2 (08:01→20:11)
[2021-06-19] MEDS: ARFORMOTEROL TARTRATE 15 MCG/2 ML VIAL.NEB NEB SCH ×2 (08:07→20:00)
--- NOTE | 2021-06-19 18:15 | R.PN ---
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 SUBJECTIVE: Pt denied any depression. Pt denied any Shortness of Breath. She has no new complaints. Ambulated 250' with modified independence using a rolling walker. Self-propelled wheelchair 250' with standby assistance. Up and down 12 steps with contact guard assistance. WBC 10.5, Hgb 15.8, glu 116-155, prealbumin 18.4. She is doing well with all therapy. VITAL SIGNS Temperature: 97.8 F Forehead SBP/DBP: 115/63 Pulse: 90 Resp: 16 MEDICATION ALLERGIES: propoxyphene HCI ENVIRONMENTAL ALLERGIES: None Known - Substance Allergies None Known - Other Allergies None Known NURSING: - Shower allowing shower - Lab Results blood Sugar Check ACHS - Bladder care per protocol - Skin care per protocol PRECAUTIONS: - Aspiration Precaution Monitor for signs of aspiration - Fall Precaution Bed alarm TABS alarm Wheel chair alarm ACTIVITIES OOB only with supervision THERAPIES: - Dietary and Nutrition Adequate Nutrition. Nutritional Education. Nutritional Supplements. - Occupational Therapy Cognitive Retraining. ADL Training. Adaptive Equipment. Community Reintegration. Eating. Household Ta sks. Patient/Family Education. Safety Awareness. Transfer Training. UE ROM. UE Strengthening. - Speech Therapy Cognitive Training. Expressive Language Skills. Memory Strategies. Receptive Language Skills. Speech Intelligibility Training. - Physical Therapy Balance Training. Evaluate and Treat. Gait Training. LE ROM. LE Strengthening. Medical Equipment Asse ssment and Evaluation. Mobility Training. Modalities Training. Patient/Family Education. Safety Aware ness. Transfer Training. PHYSICAL EXAM - Gen Alert and awake Lying in bed No apparent distress Oriented to: person, time, and place - Skin No breakdown No abnormalities - Eyes No abnormalities - ENMT No abnormalities - Neck No abnormalities - CVS RRR - Chest No abnormalities - Abd Obese, soft, nontender - GI Non distended Deferred - No abnormalities - Ext no edema - MSK 4+/5 weakness in right lower extremity - Neuro 4/5 strength right upper and lower extremities. - Psych No abnormalities ASSESSMENT: Pt. is a 70 yo Right-handed white female.On 06/02/2021 Pt. presented to [facility] with sudden onset of right-side weakness.On 06/02/2021 she was admitted to [facility] with diagnosis L CVA.Her impairment category is Stroke 01 - Right Body (Left Brain) (01 .2).Pre-morbidly, Pt. was independent/mod-I in Locomotion, Safety Awareness, Social Cognition, Balanc e, Transfers Control, Sphincter Control, Self-Care, Communication, and Endurance; and she had good Lo comotion, Social Cognition, Safety Awareness, Balance, Transfers Control, Sphincter Control, Self-Car e, Communication, and Endurance.Currently, she has deficits of Locomotion, Safety Awareness, Balance, Transfers Control, Self-Care, and Endurance.Pt. is now referred to [facility] for acute in-patient rehabilitation in order to maximize patient's functional independence in activi ties of daily living, strength, ROM, and mobility.- Rehab Goal Patient has realistic goal of being discharged at assistance level [facility] to independent to reside at [facility] with Family/Relatives. MDM/PLAN: - Physical Therapy Gait dysfunction - to improve, our physical therapists will perform initial evaluation of pt's statu s upon admission and devise an individualized program for Gait Training, and Wheel Chair mobility Inability to transfer - to improve, our physical therapists will perform initial evaluation of pt's status upon admission and devise an individualized program for Bed mobility Need for home safety evaluation - to improve, our physical therapists will perform initial evaluatio n of pt's status upon admission and devise an individualized program for Home Evaluation Need in caregiver upon discharge - to improve, our physical therapists will perform initial evaluati on of pt's status upon admission and devise an individualized program for Caregiver Training New precaution - to improve, our physical therapists will perform initial evaluation of pt's status upon admission and devise an individualized program for Patient precaution education Poor balance - to improve, our physical therapists will perform initial evaluation of pt's status up on admission and devise an individualized program for Balance Training Poor endurance - to improve, our physical therapists will perform initial evaluation of pt's status upon admission and devise an individualized program for Endurance Training Weakness - to improve, our physical therapists will perform initial evaluation of pt's status upon a dmission and devise an individualized program for Aquatic Therapy, Neuromuscular Reeducation, and Str engthening Achieving independence - to improve, our physical therapists will perform initial evaluation of pt's status upon admission and devise an individualized program for Community Reintegration Activities - Occupational Therapy ADL deficits - to improve, our occupation therapists will perform initial evaluation of pt's status upon admission and devise an individualized program for Bathing, Bed mobility, Community Reintegratio n, Cooking, Dressing, Eating, Fine Motor Skills, Grooming, Homemaking, Kitchen Mobility, Laundry, Pat ient Education, Safety Awareness, Splinting - Positioning, Transfers(Toilet, Tub, Shower), and Wheel Chair Management Need for health care coach - to improve, our occupation therapists will perform initial evaluation of pt's status upon admission and devise an individualized program for Caregiver Training Weakness - to improve, our occupation therapists will perform initial evaluation of pt's status upon admission and devise an individualized program for Aquatic Therapy, Balance, Endurance, UE ROM, and UE strengthening - Other See attached MAR (Medication Administration Record) - Diet Type Continue 60g consistent carbohydrate (ADA 1800/1999) - Diet - Liquid Texture Continue Regular - Tube Feed Continue N/A - Lab Results blood Sugar Check ACHS - Bladder care per protocol - Aspiration Precaution Monitor for signs of aspiration HOB (head of bed) elevated above 30 degrees while receiving tube feed - Weight Bearing Precaution WBAT right LE - Fall Precaution Bed alarm TABS alarm Wheel chair alarm - Skin care per protocol - Diet - Solid Texture Continue Regular - Shower allowing shower for Dementia, TBI, Stroke, or others FUNCTIONAL STATUS: UPDATED AT WEEKLY TEAM CONFERENCE - Bladder Same accident frequency: 7-Ind - No accidents in the past 7 days - Bowel Same accident frequency: 7-Ind - No accidents in the past 7 days - Walking Same score based on distance walked: 0(N/A) Same score based on distance walked: 1(<=50ft) - Wheelchair Same score based on distance traveled: 0(N/A) FUNCTIONAL STATUS: - Self-Care A. Eating Ind B. Grooming Lm C. Bathing sup D. Dressing - Upper Lm E. Dressing - Lower sup F. Toileting Lm - Sphincter Control G. Bladder control Lm H. Bowel control Lm - Transfers Control I. Bed/Chair/Wheelchair sup J. Toilet sup K. Tub/Shower sup - Locomotion L. Walk/Wheelchair (B) sup M. Stairs Gabby - Communication N. Comprehension (B) Lm O. Expression (B) Lm - Social Cognition P. Social Interaction Lm Q. Problem Solving Lm R. Memory Lm - Endurance Fair - Balance Fair - Safety Awareness Fair QI SCORES: - Self-Care A. Eating 04-Supervision or touching assistance B. Oral hygiene 03-Partial/moderate assistance C. Toileting hygiene 02-Substantial/maximal assistance E. Shower/bathe self 88-Not attempted due to medical condition or safety concerns F. Upper body dressing 02-Substantial/maximal assistance G. Lower body dressing 02-Substantial/maximal assistance H. Putting on/taking off footwear 02-Substantial/maximal assistance - Mobility A. Roll left and right 03-Partial/moderate assistance B. Sit to lying 03-Partial/moderate assistance C. Lying to sitting on side of bed 03-Partial/moderate assistance D. Sit to stand 03-Partial/moderate assistance E. Chair/[id number] transfer 03-Partial/moderate assistance F. Toilet transfer 03-Partial/moderate assistance G. Car transfer 88-Not attempted due to medical condition or safety concerns I. Walk 10 feet 03-Partial/moderate assistance J. Walk 50 feet with two turns 88-Not attempted due to medical condition or safety concerns K. Walk 150 feet 88-Not attempted due to medical condition or safety concerns L. Walking 10 feet on uneven surfaces 88-Not attempted due to medical condition or safety concerns M. 1 step (curb) 88-Not attempted due to medical condition or safety concerns N. 4 steps 88-Not attempted due to medical condition or safety concerns O. 12 steps 88-Not attempted due to medical condition or safety concerns P. Picking up object 88-Not attempted due to medical condition or safety concerns R. Wheel 50 feet with two turns 88-Not attempted due to medical condition or safety concerns S. Wheel 150 feet 88-Not attempted due to medical condition or safety concerns - Bladder and Bowel Bladder continence Bowel continence - Endurance Fair - Balance Fair - Safety Awareness Fair CURRENT FUNC. DEFICITS: Self-Care, Mobility, Endurance, Balance, and Safety Awareness SIGNATURE PANEL: ([facility])
[2021-06-19] MEDS: lisinopriL 10 MG TAB PO SCH (20:11)
[2021-06-19] MEDS: ATORVASTATIN 80 MG TAB PO SCH (20:12)
[2021-06-20 05:46] VITALS: BMI 35.7
[2021-06-20] MEDS: ENOXAPARIN 30 MG/0.3 ML SQ SCH (07:29)
[2021-06-20] MEDS: GABAPENTIN 300 MG CAP PO SCH ×3 (07:30→20:07)
[2021-06-20] MEDS: CLOPIDOGREL 75 MG TABLET PO SCH (07:30)
[2021-06-20] MEDS: ASPIRIN EC 81 MG TAB PO SCH (07:31)
[2021-06-20] MEDS: HYDROCODONE/APAP 5/325 MG TAB PO PRN ×2 (07:31→20:08)
[2021-06-20] MEDS: AMOX/K CLAV 500 MG TAB PO SCH ×2 (07:31→20:07)
[2021-06-20] MEDS: NICOTINE 21 MG/PAT TD SCH (07:32)
[2021-06-20] MEDS: MUPIROCIN 2% OINT 22GM TUBE TOP SCH ×2 (07:32→20:00)
[2021-06-20] MEDS: LIDOCAINE 4% PATCH TOP SCH ×2 (07:32→08:00)
[2021-06-20] MEDS: INSULIN GLARGINE 100 UNIT/ML SQ SCH ×2 (07:33→20:06)
[2021-06-20] MEDS: NYSTATIN PWDR 100000 UNIT/GM TOP SCH ×2 (07:33→20:00)
[2021-06-20] MEDS: ARFORMOTEROL TARTRATE 15 MCG/2 ML VIAL.NEB NEB SCH ×2 (08:05→19:40)
[2021-06-20] MEDS: ATORVASTATIN 80 MG TAB PO SCH (20:07)
[2021-06-20] MEDS: lisinopriL 10 MG TAB PO SCH (20:08)
[2021-06-21] MEDS: ARFORMOTEROL TARTRATE 15 MCG/2 ML VIAL.NEB NEB SCH ×2 (07:55→20:40)
[2021-06-21] MEDS: LIDOCAINE 4% PATCH TOP SCH ×2 (08:00→08:28)
[2021-06-21] MEDS: CLOPIDOGREL 75 MG TABLET PO SCH (08:29)
[2021-06-21] MEDS: ASPIRIN EC 81 MG TAB PO SCH (08:29)
[2021-06-21] MEDS: AMOX/K CLAV 500 MG TAB PO SCH ×2 (08:29→19:30)
[2021-06-21] MEDS: INSULIN GLARGINE 100 UNIT/ML SQ SCH ×2 (08:29→19:29)
[2021-06-21] MEDS: ENOXAPARIN 30 MG/0.3 ML SQ SCH (08:30)
[2021-06-21] MEDS: NICOTINE 21 MG/PAT TD SCH (08:30)
[2021-06-21] MEDS: NYSTATIN PWDR 100000 UNIT/GM TOP SCH ×2 (08:31→19:30)
[2021-06-21] MEDS: GABAPENTIN 300 MG CAP PO SCH ×3 (08:31→19:30)
[2021-06-21] MEDS: MUPIROCIN 2% OINT 22GM TUBE TOP SCH ×2 (08:31→19:30)
[2021-06-21] MEDS: HYDROCODONE/APAP 5/325 MG TAB PO PRN (08:59)
[2021-06-21] MEDS: lisinopriL 10 MG TAB PO SCH (19:30)
[2021-06-21] MEDS: ATORVASTATIN 80 MG TAB PO SCH (19:30)
[2021-06-22] MEDS: ENOXAPARIN 30 MG/0.3 ML SQ SCH (07:06)
[2021-06-22] MEDS: ARFORMOTEROL TARTRATE 15 MCG/2 ML VIAL.NEB NEB SCH ×2 (08:00→20:35)
[2021-06-22] MEDS: LIDOCAINE 4% PATCH TOP SCH (08:00)
[2021-06-22] MEDS: GABAPENTIN 300 MG CAP PO SCH ×3 (08:03→19:17)
[2021-06-22] MEDS: CLOPIDOGREL 75 MG TABLET PO SCH (08:03)
[2021-06-22] MEDS: HYDROCODONE/APAP 5/325 MG TAB PO PRN ×2 (08:03→16:23)
[2021-06-22] MEDS: INSULIN GLARGINE 100 UNIT/ML SQ SCH ×2 (08:03→19:17)
[2021-06-22] MEDS: AMOX/K CLAV 500 MG TAB PO SCH ×2 (08:03→19:16)
[2021-06-22] MEDS: ASPIRIN EC 81 MG TAB PO SCH (08:04)
[2021-06-22] MEDS: NICOTINE 21 MG/PAT TD SCH (10:10)
[2021-06-22] MEDS: NYSTATIN PWDR 100000 UNIT/GM TOP SCH ×2 (10:11→19:18)
[2021-06-22] MEDS: MUPIROCIN 2% OINT 22GM TUBE TOP SCH ×2 (10:11→19:17)
--- NOTE | 2021-06-22 17:22 | R.PN ---
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 SUBJECTIVE: Pt denied any depression. Pt denied any Shortness of Breath. She has no new complaints. Ambulated 500' with modified independence using a rolling walker. Self-propelled wheelchair 250' with standby assistance. Up and down 12 steps with contact guard assistance. WBC 10.5, Hgb 15.8, glu 94 to 175, prealbumin 18.4. She is doing well with all therapy. VITAL SIGNS Temperature: 97.2 F Forehead SBP/DBP: 107/63 Pulse: 85 Resp: 16 MEDICATION ALLERGIES: propoxyphene HCI ENVIRONMENTAL ALLERGIES: None Known - Substance Allergies None Known - Other Allergies None Known NURSING: - Shower allowing shower - Lab Results blood Sugar Check ACHS - Bladder care per protocol - Skin care per protocol PRECAUTIONS: - Aspiration Precaution Monitor for signs of aspiration - Fall Precaution Bed alarm TABS alarm Wheel chair alarm ACTIVITIES OOB only with supervision THERAPIES: - Dietary and Nutrition Adequate Nutrition. Nutritional Education. Nutritional Supplements. - Occupational Therapy Cognitive Retraining. ADL Training. Adaptive Equipment. Community Reintegration. Eating. Household Ta sks. Patient/Family Education. Safety Awareness. Transfer Training. UE ROM. UE Strengthening. - Speech Therapy Cognitive Training. Expressive Language Skills. Memory Strategies. Receptive Language Skills. Speech Intelligibility Training. - Physical Therapy Balance Training. Evaluate and Treat. Gait Training. LE ROM. LE Strengthening. Medical Equipment Asse ssment and Evaluation. Mobility Training. Modalities Training. Patient/Family Education. Safety Aware ness. Transfer Training. PHYSICAL EXAM - Gen Alert and awake Lying in bed No apparent distress Oriented to: person, time, and place - Skin No breakdown No abnormalities - Eyes No abnormalities - ENMT No abnormalities - Neck No abnormalities - CVS RRR - Chest No abnormalities - Abd Obese, soft, nontender - GI Non distended Deferred - No abnormalities - Ext no edema - MSK 4+/5 weakness in right lower extremity - Neuro 4/5 strength right upper and lower extremities. - Psych No abnormalities ASSESSMENT: Pt. is a 70 yo Right-handed white female.On 06/02/2021 Pt. presented to [facility] with sudden onset of right-side weakness.On 06/02/2021 she was admitted to [facility] with diagnosis L CVA.Her impairment category is Stroke 01 - Right Body (Left Brain) (01 .2).Pre-morbidly, Pt. was independent/mod-I in Locomotion, Safety Awareness, Social Cognition, Balanc e, Transfers Control, Sphincter Control, Self-Care, Communication, and Endurance; and she had good Lo comotion, Social Cognition, Safety Awareness, Balance, Transfers Control, Sphincter Control, Self-Car e, Communication, and Endurance.Currently, she has deficits of Locomotion, Safety Awareness, Balance, Transfers Control, Self-Care, and Endurance.Pt. is now referred to [facility] for acute in-patient rehabilitation in order to maximize patient's functional independence in activi ties of daily living, strength, ROM, and mobility.- Rehab Goal Patient has realistic goal of being discharged at assistance level [facility] to independent to reside at [facility] with Family/Relatives. MDM/PLAN: - Physical Therapy Gait dysfunction - to improve, our physical therapists will perform initial evaluation of pt's statu s upon admission and devise an individualized program for Gait Training, and Wheel Chair mobility Inability to transfer - to improve, our physical therapists will perform initial evaluation of pt's status upon admission and devise an individualized program for Bed mobility Need for home safety evaluation - to improve, our physical therapists will perform initial evaluatio n of pt's status upon admission and devise an individualized program for Home Evaluation Need in caregiver upon discharge - to improve, our physical therapists will perform initial evaluati on of pt's status upon admission and devise an individualized program for Caregiver Training New precaution - to improve, our physical therapists will perform initial evaluation of pt's status upon admission and devise an individualized program for Patient precaution education Poor balance - to improve, our physical therapists will perform initial evaluation of pt's status up on admission and devise an individualized program for Balance Training Poor endurance - to improve, our physical therapists will perform initial evaluation of pt's status upon admission and devise an individualized program for Endurance Training Weakness - to improve, our physical therapists will perform initial evaluation of pt's status upon a dmission and devise an individualized program for Aquatic Therapy, Neuromuscular Reeducation, and Str engthening Achieving independence - to improve, our physical therapists will perform initial evaluation of pt's status upon admission and devise an individualized program for Community Reintegration Activities - Occupational Therapy ADL deficits - to improve, our occupation therapists will perform initial evaluation of pt's status upon admission and devise an individualized program for Bathing, Bed mobility, Community Reintegratio n, Cooking, Dressing, Eating, Fine Motor Skills, Grooming, Homemaking, Kitchen Mobility, Laundry, Pat ient Education, Safety Awareness, Splinting - Positioning, Transfers(Toilet, Tub, Shower), and Wheel Chair Management Need for cardiac care unit nurse - to improve, our occupation therapists will perform initial evaluation of pt's status upon admission and devise an individualized program for Caregiver Training Weakness - to improve, our occupation therapists will perform initial evaluation of pt's status upon admission and devise an individualized program for Aquatic Therapy, Balance, Endurance, UE ROM, and UE strengthening - Other See attached MAR (Medication Administration Record) - Diet Type Continue 60g consistent carbohydrate (ADA 1800/1999) - Diet - Liquid Texture Continue Regular - Tube Feed Continue N/A - Lab Results blood Sugar Check ACHS - Bladder care per protocol - Aspiration Precaution Monitor for signs of aspiration HOB (head of bed) elevated above 30 degrees while receiving tube feed - Weight Bearing Precaution WBAT right LE - Fall Precaution Bed alarm TABS alarm Wheel chair alarm - Skin care per protocol - Diet - Solid Texture Continue Regular - Shower allowing shower for Dementia, TBI, Stroke, or others FUNCTIONAL STATUS: UPDATED AT WEEKLY TEAM CONFERENCE - Bladder Same accident frequency: 7-Ind - No accidents in the past 7 days - Bowel Same accident frequency: 7-Ind - No accidents in the past 7 days - Walking Same score based on distance walked: 0(N/A) Same score based on distance walked: 1(<=50ft) - Wheelchair Same score based on distance traveled: 0(N/A) FUNCTIONAL STATUS: - Self-Care A. Eating Ind B. Grooming Lm C. Bathing sup D. Dressing - Upper Lm E. Dressing - Lower sup F. Toileting Lm - Sphincter Control G. Bladder control Lm H. Bowel control Lm - Transfers Control I. Bed/Chair/Wheelchair sup J. Toilet sup K. Tub/Shower sup - Locomotion L. Walk/Wheelchair (B) sup M. Stairs Gabby - Communication N. Comprehension (B) Lm O. Expression (B) Lm - Social Cognition P. Social Interaction Lm Q. Problem Solving Lm R. Memory Lm - Endurance Fair - Balance Fair - Safety Awareness Fair QI SCORES: - Self-Care A. Eating 04-Supervision or touching assistance B. Oral hygiene 03-Partial/moderate assistance C. Toileting hygiene 02-Substantial/maximal assistance E. Shower/bathe self 88-Not attempted due to medical condition or safety concerns F. Upper body dressing 02-Substantial/maximal assistance G. Lower body dressing 02-Substantial/maximal assistance H. Putting on/taking off footwear 02-Substantial/maximal assistance - Mobility A. Roll left and right 03-Partial/moderate assistance B. Sit to lying 03-Partial/moderate assistance C. Lying to sitting on side of bed 03-Partial/moderate assistance D. Sit to stand 03-Partial/moderate assistance E. Chair/[id number] transfer 03-Partial/moderate assistance F. Toilet transfer 03-Partial/moderate assistance G. Car transfer 88-Not attempted due to medical condition or safety concerns I. Walk 10 feet 03-Partial/moderate assistance J. Walk 50 feet with two turns 88-Not attempted due to medical condition or safety concerns K. Walk 150 feet 88-Not attempted due to medical condition or safety concerns L. Walking 10 feet on uneven surfaces 88-Not attempted due to medical condition or safety concerns M. 1 step (curb) 88-Not attempted due to medical condition or safety concerns N. 4 steps 88-Not attempted due to medical condition or safety concerns O. 12 steps 88-Not attempted due to medical condition or safety concerns P. Picking up object 88-Not attempted due to medical condition or safety concerns R. Wheel 50 feet with two turns 88-Not attempted due to medical condition or safety concerns S. Wheel 150 feet 88-Not attempted due to medical condition or safety concerns - Bladder and Bowel Bladder continence Bowel continence - Endurance Fair - Balance Fair - Safety Awareness Fair CURRENT FUNC. DEFICITS: Self-Care, Mobility, Endurance, Balance, and Safety Awareness SIGNATURE PANEL: ([facility])
[2021-06-22] MEDS: lisinopriL 10 MG TAB PO SCH (19:16)
[2021-06-22] MEDS: ATORVASTATIN 80 MG TAB PO SCH (19:17)
[2021-06-23] MEDS: HYDROCODONE/APAP 5/325 MG TAB PO PRN (04:57)
[2021-06-23] MEDS: INSULIN GLARGINE 100 UNIT/ML SQ SCH ×3 (07:21→19:33)
[2021-06-23] MEDS: ARFORMOTEROL TARTRATE 15 MCG/2 ML VIAL.NEB NEB SCH ×2 (07:50→19:50)
[2021-06-23] MEDS: MUPIROCIN 2% OINT 22GM TUBE TOP SCH ×2 (08:00→19:34)
[2021-06-23] MEDS: GABAPENTIN 300 MG CAP PO SCH ×3 (08:30→19:33)
[2021-06-23] MEDS: LIDOCAINE 4% PATCH TOP SCH (08:30)
[2021-06-23] MEDS: ENOXAPARIN 30 MG/0.3 ML SQ SCH (08:30)
[2021-06-23] MEDS: AMOX/K CLAV 500 MG TAB PO SCH (08:31)
[2021-06-23] MEDS: ASPIRIN EC 81 MG TAB PO SCH (08:31)
[2021-06-23] MEDS: NYSTATIN PWDR 100000 UNIT/GM TOP SCH ×2 (08:33→19:34)
[2021-06-23] MEDS: CLOPIDOGREL 75 MG TABLET PO SCH (08:33)
[2021-06-23] MEDS: NICOTINE 21 MG/PAT TD SCH (08:33)
--- NOTE | 2021-06-23 17:21 | R.PN ---
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 SUBJECTIVE: Pt denied any depression. Pt denied any Shortness of Breath. She has no new complaints. Ambulated 250' with modified independence using a rolling walker. Self-propelled wheelchair 500' with standby assistance. WBC 10.5, Hgb 15.8, glu 94 to 129, prealbumin 18.4. She is doing well with all therapy. VITAL SIGNS Temperature: 97.6 F Forehead SBP/DBP: 102/58 Pulse: 90 Resp: 16 MEDICATION ALLERGIES: propoxyphene HCI ENVIRONMENTAL ALLERGIES: None Known - Substance Allergies None Known - Other Allergies None Known NURSING: - Shower allowing shower - Lab Results blood Sugar Check ACHS - Bladder care per protocol - Skin care per protocol PRECAUTIONS: - Aspiration Precaution Monitor for signs of aspiration - Fall Precaution Bed alarm TABS alarm Wheel chair alarm ACTIVITIES OOB only with supervision THERAPIES: - Dietary and Nutrition Adequate Nutrition. Nutritional Education. Nutritional Supplements. - Occupational Therapy Cognitive Retraining. ADL Training. Adaptive Equipment. Community Reintegration. Eating. Household Ta sks. Patient/Family Education. Safety Awareness. Transfer Training. UE ROM. UE Strengthening. - Speech Therapy Cognitive Training. Expressive Language Skills. Memory Strategies. Receptive Language Skills. Speech Intelligibility Training. - Physical Therapy Balance Training. Evaluate and Treat. Gait Training. LE ROM. LE Strengthening. Medical Equipment Asse ssment and Evaluation. Mobility Training. Modalities Training. Patient/Family Education. Safety Aware ness. Transfer Training. PHYSICAL EXAM - Gen Alert and awake Lying in bed No apparent distress Oriented to: person, time, and place - Skin No breakdown No abnormalities - Eyes No abnormalities - ENMT No abnormalities - Neck No abnormalities - CVS RRR - Chest No abnormalities - Abd Obese, soft, nontender - GI Non distended Deferred - No abnormalities - Ext no edema - MSK 4+/5 weakness in right lower extremity - Neuro 4/5 strength right upper and lower extremities. - Psych No abnormalities ASSESSMENT: Pt. is a 70 yo Right-handed white female.On 06/02/2021 Pt. presented to [facility] with sudden onset of right-side weakness.On 06/02/2021 she was admitted to [facility] with diagnosis L CVA.Her impairment category is Stroke 01 - Right Body (Left Brain) (01 .2).Pre-morbidly, Pt. was independent/mod-I in Locomotion, Safety Awareness, Social Cognition, Balanc e, Transfers Control, Sphincter Control, Self-Care, Communication, and Endurance; and she had good Lo comotion, Social Cognition, Safety Awareness, Balance, Transfers Control, Sphincter Control, Self-Car e, Communication, and Endurance.Currently, she has deficits of Locomotion, Safety Awareness, Balance, Transfers Control, Self-Care, and Endurance.Pt. is now referred to [facility] for acute in-patient rehabilitation in order to maximize patient's functional independence in activi ties of daily living, strength, ROM, and mobility.- Rehab Goal Patient has realistic goal of being discharged at assistance level CGA to independent to reside at [facility] with Family/Relatives. MDM/PLAN: - Physical Therapy Gait dysfunction - to improve, our physical therapists will perform initial evaluation of pt's statu s upon admission and devise an individualized program for Gait Training, and Wheel Chair mobility Inability to transfer - to improve, our physical therapists will perform initial evaluation of pt's status upon admission and devise an individualized program for Bed mobility Need for home safety evaluation - to improve, our physical therapists will perform initial evaluatio n of pt's status upon admission and devise an individualized program for Home Evaluation Need in caregiver upon discharge - to improve, our physical therapists will perform initial evaluati on of pt's status upon admission and devise an individualized program for Caregiver Training New precaution - to improve, our physical therapists will perform initial evaluation of pt's status upon admission and devise an individualized program for Patient precaution education Poor balance - to improve, our physical therapists will perform initial evaluation of pt's status up on admission and devise an individualized program for Balance Training Poor endurance - to improve, our physical therapists will perform initial evaluation of pt's status upon admission and devise an individualized program for Endurance Training Weakness - to improve, our physical therapists will perform initial evaluation of pt's status upon a dmission and devise an individualized program for Aquatic Therapy, Neuromuscular Reeducation, and Str engthening Achieving independence - to improve, our physical therapists will perform initial evaluation of pt's status upon admission and devise an individualized program for Community Reintegration Activities - Occupational Therapy ADL deficits - to improve, our occupation therapists will perform initial evaluation of pt's status upon admission and devise an individualized program for Bathing, Bed mobility, Community Reintegratio n, Cooking, Dressing, Eating, Fine Motor Skills, Grooming, Homemaking, Kitchen Mobility, Laundry, Pat ient Education, Safety Awareness, Splinting - Positioning, Transfers(Toilet, Tub, Shower), and Wheel Chair Management Need for dog day care attendant - to improve, our occupation therapists will perform initial evaluation of pt's status upon admission and devise an individualized program for Caregiver Training Weakness - to improve, our occupation therapists will perform initial evaluation of pt's status upon admission and devise an individualized program for Aquatic Therapy, Balance, Endurance, UE ROM, and UE strengthening - Other See attached MAR (Medication Administration Record) - Diet Type Continue 60g consistent carbohydrate (ADA 1800/1999) - Diet - Liquid Texture Continue Regular - Tube Feed Continue N/A - Lab Results blood Sugar Check ACHS - Bladder care per protocol - Aspiration Precaution Monitor for signs of aspiration HOB (head of bed) elevated above 30 degrees while receiving tube feed - Weight Bearing Precaution WBAT right LE - Fall Precaution Bed alarm TABS alarm Wheel chair alarm - Skin care per protocol - Diet - Solid Texture Continue Regular - Shower allowing shower for Dementia, TBI, Stroke, or others FUNCTIONAL STATUS: UPDATED AT WEEKLY TEAM CONFERENCE - Bladder Same accident frequency: 7-Ind - No accidents in the past 7 days - Bowel Same accident frequency: 7-Ind - No accidents in the past 7 days - Walking Same score based on distance walked: 0(N/A) Same score based on distance walked: 1(<=50ft) - Wheelchair Same score based on distance traveled: 0(N/A) FUNCTIONAL STATUS: - Self-Care A. Eating Ind B. Grooming Lm C. Bathing sup D. Dressing - Upper Lm E. Dressing - Lower sup F. Toileting Lm - Sphincter Control G. Bladder control Lm H. Bowel control Lm - Transfers Control I. Bed/Chair/Wheelchair sup J. Toilet sup K. Tub/Shower sup - Locomotion L. Walk/Wheelchair (B) sup M. Stairs Gabby - Communication N. Comprehension (B) Lm O. Expression (B) Lm - Social Cognition P. Social Interaction Lm Q. Problem Solving Lm R. Memory Lm - Endurance Fair - Balance Fair - Safety Awareness Fair QI SCORES: - Self-Care A. Eating 04-Supervision or touching assistance B. Oral hygiene 03-Partial/moderate assistance C. Toileting hygiene 02-Substantial/maximal assistance E. Shower/bathe self 88-Not attempted due to medical condition or safety concerns F. Upper body dressing 02-Substantial/maximal assistance G. Lower body dressing 02-Substantial/maximal assistance H. Putting on/taking off footwear 02-Substantial/maximal assistance - Mobility A. Roll left and right 03-Partial/moderate assistance B. Sit to lying 03-Partial/moderate assistance C. Lying to sitting on side of bed 03-Partial/moderate assistance D. Sit to stand 03-Partial/moderate assistance E. Chair/jhm-el-jgzvw transfer 03-Partial/moderate assistance F. Toilet transfer 03-Partial/moderate assistance G. Car transfer 88-Not attempted due to medical condition or safety concerns I. Walk 10 feet 03-Partial/moderate assistance J. Walk 50 feet with two turns 88-Not attempted due to medical condition or safety concerns K. Walk 150 feet 88-Not attempted due to medical condition or safety concerns L. Walking 10 feet on uneven surfaces 88-Not attempted due to medical condition or safety concerns M. 1 step (curb) 88-Not attempted due to medical condition or safety concerns N. 4 steps 88-Not attempted due to medical condition or safety concerns O. 12 steps 88-Not attempted due to medical condition or safety concerns P. Picking up object 88-Not attempted due to medical condition or safety concerns R. Wheel 50 feet with two turns 88-Not attempted due to medical condition or safety concerns S. Wheel 150 feet 88-Not attempted due to medical condition or safety concerns - Bladder and Bowel Bladder continence Bowel continence - Endurance Fair - Balance Fair - Safety Awareness Fair CURRENT FUNC. DEFICITS: Self-Care, Mobility, Endurance, Balance, and Safety Awareness SIGNATURE PANEL: (HEEL STIFFENER)
[2021-06-23] MEDS: lisinopriL 10 MG TAB PO SCH (19:33)
[2021-06-23] MEDS: ATORVASTATIN 80 MG TAB PO SCH (19:33)
[2021-06-24] MEDS: ENOXAPARIN 30 MG/0.3 ML SQ SCH (07:07)
[2021-06-24] MEDS: NICOTINE 21 MG/PAT TD SCH (07:08)
[2021-06-24] MEDS: MUPIROCIN 2% OINT 22GM TUBE TOP SCH ×2 (07:08→20:18)
[2021-06-24] MEDS: NYSTATIN PWDR 100000 UNIT/GM TOP SCH ×2 (07:08→20:18)
[2021-06-24] MEDS: LIDOCAINE 4% PATCH TOP SCH (07:14)
[2021-06-24] MEDS: HYDROCODONE/APAP 5/325 MG TAB PO PRN ×2 (08:07→15:43)
[2021-06-24] MEDS: INSULIN GLARGINE 100 UNIT/ML SQ SCH ×2 (08:07→20:15)
[2021-06-24] MEDS: GABAPENTIN 300 MG CAP PO SCH ×3 (08:08→20:16)
[2021-06-24] MEDS: ASPIRIN EC 81 MG TAB PO SCH (08:08)
[2021-06-24] MEDS: CLOPIDOGREL 75 MG TABLET PO SCH (08:08)
[2021-06-24] MEDS: ARFORMOTEROL TARTRATE 15 MCG/2 ML VIAL.NEB NEB SCH ×2 (08:14→19:55)
--- NOTE | 2021-06-24 17:15 | R.PN ---
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 SUBJECTIVE: Pt denied any depression. Pt denied any Shortness of Breath. She has no new complaints. Ambulated 550' with modified independence using a rolling walker. Self-propelled wheelchair 500' with standby assistance. WBC 10.5, Hgb 15.8, glu 109 to 184 prealbumin 18.4. She is doing well with all therapy. VITAL SIGNS Temperature: 97.2 F Forehead SBP/DBP: 119/56 Pulse: 88 Resp: 16 MEDICATION ALLERGIES: propoxyphene HCI ENVIRONMENTAL ALLERGIES: None Known - Substance Allergies None Known - Other Allergies None Known NURSING: - Shower allowing shower - Lab Results blood Sugar Check ACHS - Bladder care per protocol - Skin care per protocol PRECAUTIONS: - Aspiration Precaution Monitor for signs of aspiration - Fall Precaution Bed alarm TABS alarm Wheel chair alarm ACTIVITIES OOB only with supervision THERAPIES: - Dietary and Nutrition Adequate Nutrition. Nutritional Education. Nutritional Supplements. - Occupational Therapy Cognitive Retraining. ADL Training. Adaptive Equipment. Community Reintegration. Eating. Household Ta sks. Patient/Family Education. Safety Awareness. Transfer Training. UE ROM. UE Strengthening. - Speech Therapy Cognitive Training. Expressive Language Skills. Memory Strategies. Receptive Language Skills. Speech Intelligibility Training. - Physical Therapy Balance Training. Evaluate and Treat. Gait Training. LE ROM. LE Strengthening. Medical Equipment Asse ssment and Evaluation. Mobility Training. Modalities Training. Patient/Family Education. Safety Aware ness. Transfer Training. PHYSICAL EXAM - Gen Alert and awake Lying in bed No apparent distress Oriented to: person, time, and place - Skin No breakdown No abnormalities - Eyes No abnormalities - ENMT No abnormalities - Neck No abnormalities - CVS RRR - Chest No abnormalities - Abd Obese, soft, nontender - GI Non distended Deferred - No abnormalities - Ext no edema - MSK 4+/5 weakness in right lower extremity - Neuro 4/5 strength right upper and lower extremities. - Psych No abnormalities ASSESSMENT: Pt. is a 70 yo Right-handed white female.On 06/02/2021 Pt. presented to [facility] with sudden onset of right-side weakness.On 06/02/2021 she was admitted to [facility] with diagnosis L CVA.Her impairment category is Stroke 01 - Right Body (Left Brain) (01 .2).Pre-morbidly, Pt. was independent/mod-I in Locomotion, Safety Awareness, Social Cognition, Balanc e, Transfers Control, Sphincter Control, Self-Care, Communication, and Endurance; and she had good Lo comotion, Social Cognition, Safety Awareness, Balance, Transfers Control, Sphincter Control, Self-Car e, Communication, and Endurance.Currently, she has deficits of Locomotion, Safety Awareness, Balance, Transfers Control, Self-Care, and Endurance.Pt. is now referred to [facility] for acute in-patient rehabilitation in order to maximize patient's functional independence in activi ties of daily living, strength, ROM, and mobility.- Rehab Goal Patient has realistic goal of being discharged at assistance level CGA to independent to reside at [facility] with Family/Relatives. MDM/PLAN: - Physical Therapy Gait dysfunction - to improve, our physical therapists will perform initial evaluation of pt's statu s upon admission and devise an individualized program for Gait Training, and Wheel Chair mobility Inability to transfer - to improve, our physical therapists will perform initial evaluation of pt's status upon admission and devise an individualized program for Bed mobility Need for home safety evaluation - to improve, our physical therapists will perform initial evaluatio n of pt's status upon admission and devise an individualized program for Home Evaluation Need in caregiver upon discharge - to improve, our physical therapists will perform initial evaluati on of pt's status upon admission and devise an individualized program for Caregiver Training New precaution - to improve, our physical therapists will perform initial evaluation of pt's status upon admission and devise an individualized program for Patient precaution education Poor balance - to improve, our physical therapists will perform initial evaluation of pt's status up on admission and devise an individualized program for Balance Training Poor endurance - to improve, our physical therapists will perform initial evaluation of pt's status upon admission and devise an individualized program for Endurance Training Weakness - to improve, our physical therapists will perform initial evaluation of pt's status upon a dmission and devise an individualized program for Aquatic Therapy, Neuromuscular Reeducation, and Str engthening Achieving independence - to improve, our physical therapists will perform initial evaluation of pt's status upon admission and devise an individualized program for Community Reintegration Activities - Occupational Therapy ADL deficits - to improve, our occupation therapists will perform initial evaluation of pt's status upon admission and devise an individualized program for Bathing, Bed mobility, Community Reintegratio n, Cooking, Dressing, Eating, Fine Motor Skills, Grooming, Homemaking, Kitchen Mobility, Laundry, Pat ient Education, Safety Awareness, Splinting - Positioning, Transfers(Toilet, Tub, Shower), and Wheel Chair Management Need for complex care nurse - to improve, our occupation therapists will perform initial evaluation of pt's status upon admission and devise an individualized program for Caregiver Training Weakness - to improve, our occupation therapists will perform initial evaluation of pt's status upon admission and devise an individualized program for Aquatic Therapy, Balance, Endurance, UE ROM, and UE strengthening - Other See attached MAR (Medication Administration Record) - Diet Type Continue 60g consistent carbohydrate (ADA 1800/1999) - Diet - Liquid Texture Continue Regular - Tube Feed Continue N/A - Lab Results blood Sugar Check ACHS - Bladder care per protocol - Aspiration Precaution Monitor for signs of aspiration HOB (head of bed) elevated above 30 degrees while receiving tube feed - Weight Bearing Precaution WBAT right LE - Fall Precaution Bed alarm TABS alarm Wheel chair alarm - Skin care per protocol - Diet - Solid Texture Continue Regular - Shower allowing shower for Dementia, TBI, Stroke, or others FUNCTIONAL STATUS: UPDATED AT WEEKLY TEAM CONFERENCE - Bladder Same accident frequency: 7-Ind - No accidents in the past 7 days - Bowel Same accident frequency: 7-Ind - No accidents in the past 7 days - Walking Same score based on distance walked: 0(N/A) Same score based on distance walked: 1(<=50ft) - Wheelchair Same score based on distance traveled: 0(N/A) FUNCTIONAL STATUS: - Self-Care A. Eating Ind B. Grooming Lm C. Bathing sup D. Dressing - Upper Lm E. Dressing - Lower sup F. Toileting Lm - Sphincter Control G. Bladder control Lm H. Bowel control Lm - Transfers Control I. Bed/Chair/Wheelchair sup J. Toilet sup K. Tub/Shower sup - Locomotion L. Walk/Wheelchair (B) sup M. Stairs Gabby - Communication N. Comprehension (B) Lm O. Expression (B) mL - Social Cognition P. Social Interaction Lm Q. Problem Solving Lm R. Memory Lm - Endurance Fair - Balance Fair - Safety Awareness Fair QI SCORES: - Self-Care A. Eating 04-Supervision or touching assistance B. Oral hygiene 03-Partial/moderate assistance C. Toileting hygiene 02-Substantial/maximal assistance E. Shower/bathe self 88-Not attempted due to medical condition or safety concerns F. Upper body dressing 02-Substantial/maximal assistance G. Lower body dressing 02-Substantial/maximal assistance H. Putting on/taking off footwear 02-Substantial/maximal assistance - Mobility A. Roll left and right 03-Partial/moderate assistance B. Sit to lying 03-Partial/moderate assistance C. Lying to sitting on side of bed 03-Partial/moderate assistance D. Sit to stand 03-Partial/moderate assistance E. Chair/oot-nr-oxyww transfer 03-Partial/moderate assistance F. Toilet transfer 03-Partial/moderate assistance G. Car transfer 88-Not attempted due to medical condition or safety concerns I. Walk 10 feet 03-Partial/moderate assistance J. Walk 50 feet with two turns 88-Not attempted due to medical condition or safety concerns K. Walk 150 feet 88-Not attempted due to medical condition or safety concerns L. Walking 10 feet on uneven surfaces 88-Not attempted due to medical condition or safety concerns M. 1 step (curb) 88-Not attempted due to medical condition or safety concerns N. 4 steps 88-Not attempted due to medical condition or safety concerns O. 12 steps 88-Not attempted due to medical condition or safety concerns P. Picking up object 88-Not attempted due to medical condition or safety concerns R. Wheel 50 feet with two turns 88-Not attempted due to medical condition or safety concerns S. Wheel 150 feet 88-Not attempted due to medical condition or safety concerns - Bladder and Bowel Bladder continence Bowel continence - Endurance Fair - Balance Fair - Safety Awareness Fair CURRENT FUNC. DEFICITS: Self-Care, Mobility, Endurance, Balance, and Safety Awareness SIGNATURE PANEL: (MAINTENANCE PAINTER APPRENTICE)
[2021-06-24] MEDS: ATORVASTATIN 80 MG TAB PO SCH (20:16)
[2021-06-24] MEDS: lisinopriL 10 MG TAB PO SCH (20:16)
[2021-06-25 05:23] LABS: Basophils % 1.2 % (0-1.3); Hematocrit 41.1 % (36.0-45.0); Lymphocytes % 32.5 % (15.3-44.8); MPV 9.1 fL (7.6-11.3); RBC Red Blood Cell Count 4.47 M/uL (3.86-4.86)
[2021-06-25 05:37] LABS: Albumin 2.6 g/dL (3.4-5.0); Magnesium 2.4 mg/dL (1.8-2.4); Potassium 4.3 mmol/L (3.5-5.1); Prealbumin 16.6 mg/dL (20-40)
[2021-06-25] MEDS: ENOXAPARIN 30 MG/0.3 ML SQ SCH (07:18)
--- NOTE | 2021-06-25 07:41 | P.CNS ---
Date of Consult: 06/25/21 Reason for Consult: painful toenails Requesting Physician: Stephan Durbin Chief Complaint: PAinful elongated toenails Allergies propoxyphene HCl [From Darvon] Adverse Reaction (Verified 11/30/18 15:52) lightheaded Home Medications: Metformin HCl [Glucophage*] 500 mg PO BID 09/04/15 lisinopriL [Prinivil*] 10 mg PO DAILY AFTER SUPPER 09/04/15 Albuterol Sulfate [Proair Respiclick] 2 puff IH Q4H PRN 06/06/21 Aspirin 81 mg PO DAILY 06/06/21 Benzonatate [Tessalon Perle*] 1 cap PO TID PRN 06/06/21 Dulaglutide [Trulicity] 3 mg SQ SEECOM 06/06/21 Gabapentin 400 mg PO TID 06/06/21 Insulin Glargine,Hum.rec.anlog [Lantus] 60 unit SQ BID 06/06/21 Nicotine [Nicoderm*] 1 patch TOP Q24H 06/06/21 Amox/Clavulanate [Augmentin 500-125 mg Tab*] 500 mg PO BID #14 tab 06/08/21 Arformoterol Tartrate [Brovana] 15 mcg NEB BIDRESP #60 vial.neb 06/08/21 Atorvastatin Calcium [Lipitor] 80 mg PO BEDTIME #30 tab 06/08/21 Clopidogrel Bisulfate [Plavix*] 75 mg PO DAILY #30 tablet 06/08/21 Hydrocodone Bit/Acetaminophen [Hydrocodon-Acetaminophen 5-325] 1 tab PO Q6H PRN 06/08/21 Mupirocin Oint [Bactroban 2% Ointment*] 1 appl TOP BID #1 tube 06/08/21 - Past Medical/Surgical History Diabetic: Yes -: DM -: HTN -: COPD -: Hyperlipidemia -: CVA 05/2021 -: tobacco abuse -: GERD -: dm neuropathy -: Bilateral knee surgery -: Hysterectomy -: Back surgery Psychosocial/ Personal History: Patient lives at home. She is - Family History Father Medical History: Diabetes Mother Medical History: Heart disease - Social History Alcohol use: No CD- Drugs: No Caffeine use: No Place of Residence: Home Review of Systems 10-point ROS is otherwise unremarkable Physical Examination Temp Pulse Resp BP Pulse Ox 97.6 F 71 18 111/61 95 06/25/21 07:32 06/25/21 07:32 06/25/21 07:32 06/25/21 07:32 06/25/21 07:32 General: Alert, In no apparent distress, Oriented x3 Cardiovascular: Edema (+2 edema bilateral lower extremity), Abnormal pulses (0/4 dorsalis pedis and posterior pulses bilateral) Capillary refill: <2 Seconds Musculoskeletal: No clubbing, No swelling, No contractures, No erythema, No tenderness, No warmth Integumentary: No rashes, No breakdown, No significant lesion, No tenderness/swelling, No erythema, No warmth, Other (Thickened elongated nails wi th subungual debris x 10 bilateral feet) Neurological: Sensation intact Laboratory Data (last 24 hrs) 06/25/21 04:58: Sodium 144, Potassium 4.3, BUN 18, Creatinine 0.71, Glucose 97, Magnesium 2.4 06/25/21 04:58: WBC 9.10, Hgb 13.6, Hct 41.1, Plt Count 254 - Problems (1) Tinea unguium Current Visit: Yes Status: Acute (2) Type 2 diabetes mellitus with diabetic peripheral angiopathy without gangrene Current Visit: Yes Status: Acute Conclusions/Impression: Manual debridement of nails x 10 at bedside Physician Review: Patient Assessed, Agree with Above Assessment and Plan Critical Care: No
[2021-06-25] MEDS: ARFORMOTEROL TARTRATE 15 MCG/2 ML VIAL.NEB NEB SCH ×2 (07:45→19:30)
[2021-06-25] MEDS: LIDOCAINE 4% PATCH TOP SCH (08:00)
[2021-06-25] MEDS: INSULIN GLARGINE 100 UNIT/ML SQ SCH ×3 (08:00→20:06)
[2021-06-25] MEDS: CLOPIDOGREL 75 MG TABLET PO SCH (08:09)
[2021-06-25] MEDS: ASPIRIN EC 81 MG TAB PO SCH (08:09)
[2021-06-25] MEDS: GABAPENTIN 300 MG CAP PO SCH ×3 (08:10→20:05)
[2021-06-25] MEDS: HYDROCODONE/APAP 5/325 MG TAB PO PRN (08:12)
[2021-06-25] MEDS: NICOTINE 21 MG/PAT TD SCH (08:13)
[2021-06-25] MEDS: MUPIROCIN 2% OINT 22GM TUBE TOP SCH ×2 (08:13→20:13)
[2021-06-25] MEDS: NYSTATIN PWDR 100000 UNIT/GM TOP SCH ×2 (08:13→20:13)
[2021-06-25] MEDS: DULAGLUTIDE 1.5 MG SQ SCH (08:20)
[2021-06-25] MEDS: ATORVASTATIN 80 MG TAB PO SCH (20:05)
[2021-06-25] MEDS: DOCUSATE NA/SENNA CONC 1 TAB PO PRN (20:06)
[2021-06-25] MEDS: lisinopriL 10 MG TAB PO SCH (20:06)
[2021-06-26] MEDS: HYDROCODONE/APAP 5/325 MG TAB PO PRN ×2 (03:10→12:23)
[2021-06-26] MEDS: ENOXAPARIN 30 MG/0.3 ML SQ SCH (06:27)
[2021-06-26 07:18] VITALS: BP 114/60; TEMP 97.9
[2021-06-26] MEDS: LIDOCAINE 4% PATCH TOP SCH (07:25)
[2021-06-26] MEDS: MUPIROCIN 2% OINT 22GM TUBE TOP SCH (07:27)
[2021-06-26] MEDS: NYSTATIN PWDR 100000 UNIT/GM TOP SCH (07:28)
[2021-06-26] MEDS: NICOTINE 21 MG/PAT TD SCH (07:41)
[2021-06-26] MEDS: GABAPENTIN 300 MG CAP PO SCH (07:42)
[2021-06-26] MEDS: CLOPIDOGREL 75 MG TABLET PO SCH (07:42)
[2021-06-26] MEDS: ASPIRIN EC 81 MG TAB PO SCH (07:42)
[2021-06-26] MEDS: INSULIN GLARGINE 100 UNIT/ML SQ SCH (08:11)
[2021-06-26] MEDS: ARFORMOTEROL TARTRATE 15 MCG/2 ML VIAL.NEB NEB SCH (08:55)
--- NOTE | 2021-06-26 09:52 | P.RH.PN ---
Estimated Length of Stay: 18 Expected Discharge Date: 06/26/21 Discharge Disposition Plan: Home Family Support: Yes Intermediate Goal: Mobility, Transfers, Self Care Vital Signs: Last Vital Signs Temp 97.9 F 06/26/21 07:17 Pulse 87 06/26/21 07:17 Resp 18 06/26/21 07:17 BP 114/60 06/26/21 07:17 Pulse Ox 96 06/26/21 07:17 Laboratory: Laboratory Last Values WBC 9.10 K/uL (4.3-10.9) 06/25/21 04:58 RBC 4.47 M/uL (3.86-4.86) 06/25/21 04:58 Hgb 13.6 g/dL (12.0-15.0) 06/25/21 04:58 Hct 41.1 % (36.0-45.0) 06/25/21 04:58 MCV 91.8 fL (80-100) 06/25/21 04:58 MCH 30.3 pg (27.0-35.0) 06/25/21 04:58 MCHC 33.1 g/dL (32.0-36.0) 06/25/21 04:58 RDW 13.1 % (12.1-15.2) 06/25/21 04:58 Plt Count 254 K/uL (152-406) 06/25/21 04:58 MPV 9.1 fL (7.6-11.3) 06/25/21 04:58 Neutrophils % 51.0 % (41.7-73.7) 06/25/21 04:58 Lymphocytes % 32.5 % (15.3-44.8) 06/25/21 04:58 Monocytes % 8.9 % (3.3-12.3) 06/25/21 04:58 Eosinophils % 6.4 % (0-4.4) H 06/25/21 04:58 Basophils % 1.2 % (0-1.3) 06/25/21 04:58 Absolute Neutrophils 4.7 K/uL (1.8-8.0) 06/25/21 04:58 Absolute Lymphocytes 3.0 K/uL (0.7-4.9) 06/25/21 04:58 Absolute Monocytes 0.8 K/uL (0.1-1.3) 06/25/21 04:58 Absolute Eosinophils 0.6 K/uL (0-0.5) H 06/25/21 04:58 Absolute Basophils 0.1 K/uL (0-0.5) 06/25/21 04:58 Sodium 144 mmol/L (136-145) 06/25/21 04:58 Potassium 4.3 mmol/L (3.5-5.1) 06/25/21 04:58 Chloride 113 mmol/L (98-107) H 06/25/21 04:58 Carbon Dioxide 27 mmol/L (21-32) 06/25/21 04:58 BUN 18 mg/dL (7-18) 06/25/21 04:58 Creatinine 0.71 mg/dL (0.55-1.3) 06/25/21 04:58 Estimated GFR 81 mL/min (=/>90) L 06/25/21 04:58 Glucose 97 mg/dL (74-106) 06/25/21 04:58 POC Glucose 143 mg/dL (65-120) H 06/26/21 07:55 Calcium 10.3 mg/dL (8.5-10.1) H 06/25/21 04:58 Magnesium 2.4 mg/dL (1.8-2.4) 06/25/21 04:58 Albumin 2.6 g/dL (3.4-5.0) L 06/25/21 04:58 Prealbumin 16.6 mg/dL (20-40) L 06/25/21 04:58 Urine Color Yellow (Yellow) 06/09/21 05:11 Urine Appearance Clear (Clear) 06/09/21 05:11 Urine pH 6.0 (5.0-7.0) 06/09/21 05:11 Ur Specific [place] 1.020 (1.005-1.030) 06/09/21 05:11 Glucose (UA)(Auto) Negative (Negative) 06/09/21 05:11 Urine Ketones Negative (Negative) 06/09/21 05:11 Urine Blood Trace-lysed (Negative) H 06/09/21 05:11 Urine Nitrite Negative (Negative) 06/09/21 05:11 Urine Bilirubin Negative (Negative) 06/09/21 05:11 Urine Urobilinogen 1.0 mg/dL (0.2-1.0) 06/09/21 05:11 Ur Leukocyte Esterase Negative (Negative) 06/09/21 05:11 Urine RBC <5 /HPF (NONE SEEN) 06/09/21 05:11 Urine WBC None seen /HPF (<5) 06/09/21 05:11 Ur Squamous Epith Cells <5 /HPF (NONE SEEN) 06/09/21 05:11 Ur Urothelial Cells Cancelled 06/09/21 04:25 Calcium Oxalate Crystal Cancelled 06/09/21 04:25 Uric Acid Crystals Cancelled 06/09/21 04:25 Triple Phos Crystals Cancelled 06/09/21 04:25 Other Crystals Cancelled 06/09/21 04:25 Amorphous Sediment Cancelled 06/09/21 04:25 Glitter Cells Cancelled 06/09/21 04:25 Urine Bacteria <20 /HPF (<20) 06/09/21 05:11 Hyaline Casts Cancelled 06/09/21 04:25 Fine Granular Casts Cancelled 06/09/21 04:25 Coarse Granular Casts Cancelled 06/09/21 04:25 Waxy Casts Cancelled 06/09/21 04:25 RBC Casts Cancelled 06/09/21 04:25 WBC Casts Cancelled 06/09/21 04:25 Urine Mucus Cancelled 06/09/21 04:25 Urine Other Cancelled 06/09/21 04:25 Urine Trichomonas Cancelled 06/09/21 04:25 Urine Yeast Cancelled 06/09/21 04:25 Ur Yeast w Hyphae Cancelled 06/09/21 04:25 Urine Yeast (Budding) Cancelled 06/09/21 04:25 Urine Sperm Cancelled 06/09/21 04:25 Urine Culture Reflexed Not needed 06/09/21 05:11 Urine Total Volume Cancelled 06/09/21 04:25 Urine Total Protein Negative (Negative) 06/09/21 05:11 SARS-CoV-2 Rap RNA(RT-PCR) Negative (NEGATIVE) 06/20/21 10:55 Weight: 202 lb Wound Present: No Closed Surgical Incision Present: No Negative Pressure Wound Therapy Present: No Physician Update: Labs reviewed and are stable. Walking independently 250', transfers, ADLs all indendent. Ready for discharge with [facility] for PT and OT. Comment: on nystatin powder Functional Improvement: Patient has met all short-term and long-term goals at this time, w/ the exception of a car transfer. Patient completes tasks w/ good technique and safety awareness. Summary: Patient's care plan and long-term goals have been reviewed and revised as necessary. Please see the Rehabilitation Signature page for all necessary signatures.
--- NOTE | 2021-07-04 18:51 | R.DS ---
DISCHARGE SUMMARY FACILITY [facility] MR# [id number] NAME Bernie MARLOW ADDRESS [address] [place] [address] [address] [id number] PHONE DATE OF 1950 AGE 70 SSN# [id number] GENDER Female DEXTERITY Right-handed MARITAL STATUS RACE White ENCOUNTER PHYSICIAN Dr. Stephan Durbin M.D. REFERRING DOCTOR Dr. Andrea Gonzalez REFERRING FACILITY [facility] DISCHARGE DIAGNOSIS: - Stroke 01 - Right Body (Left Brain) (.2) L CVA. 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 NURSING: - Shower allowing shower - Lab Results blood Sugar Check ACHS - Bladder care per protocol - Skin care per protocol PRECAUTIONS: - Aspiration Precaution Monitor for signs of aspiration - Fall Precaution Bed alarm TABS alarm Wheel chair alarm ACTIVITIES OOB only with supervision THERAPIES: - Dietary and Nutrition Adequate Nutrition Nutritional Education Nutritional Supplements - Occupational Therapy Cognitive Retraining ADL Training Adaptive Equipment Community Reintegration Eating Household Tasks Patient/Family Education Safety Awareness Transfer Training UE ROM UE Strengthening - Speech Therapy Cognitive Training Expressive Language Skills Memory Strategies Receptive Language Skills Speech Intelligibility Training - Physical Therapy Balance Training Evaluate and Treat Gait Training LE ROM LE Strengthening Medical Equipment Assessment and Evaluation Mobility Training Modalities Training Patient/Family Education Safety Awareness Transfer Training HISTORY OF PRESENT ILLNESS: Pt. is a 70 yo Right-handed white female.On 06/02/2021 Pt. presented to [facility] with sudden onset of right-side weakness.On 06/02/2021 she was admitted to [facility] with diagnosis L CVA.Her impairment category is Stroke 01 - Right Body (Left Brain) ( .2).Pre-morbidly, Pt. was independent/mod-I in Locomotion, Safety Awareness, Social Cognition, Balanc e, Transfers Control, Sphincter Control, Self-Care, Communication, and Endurance; and she had good Lo comotion, Social Cognition, Safety Awareness, Balance, Transfers Control, Sphincter Control, Self-Car e, Communication, and Endurance.Currently, she has deficits of Locomotion, Safety Awareness, Balance, Transfers Control, Self-Care, and Endurance.Pt. is now referred to [facility] for acute in-patient rehabilitation in order to maximize patient's functional independence in activi ties of daily living, strength, ROM, and mobility.- Rehab Goal Patient has realistic goal of being discharged at assistance level CGA to independent to reside at [facility] with Family/Relatives. ASPIRATION PRECAUTION: On 06/08/2021 the following precautions were added for the patient: Aspiration Precaution - Monitor f or signs of aspiration. On 06/09/2021 the following precautions were added for the patient: Aspiration Precaution - HOB (hea d of bed) elevated above 30 degrees while receiving tube feed, and Aspiration Precaution - Monitor f or signs of aspiration. On 06/10/2021 the following precautions were removed for the patient: Aspiration Precaution - HOB (h ead of bed) elevated above 30 degrees while receiving tube feed, and Aspiration Precaution - Monitor for signs of aspiration. The following precautions were added for the patient: Aspiration Precaution - HOB (head of bed) eleva ehasn above 30 degrees while receiving tube feed. On 06/11/2021 the following precautions were removed for the patient: Aspiration Precaution - HOB (he ad of bed) elevated above 30 degrees while receiving tube feed. The following precautions were added for the patient: Aspiration Precaution - Monitor for signs of a spiration, and Aspiration Precaution - HOB (head of bed) elevated above 30 degrees while receiving t ube feed. The following precautions were removed for the patient: Aspiration Precaution - Monitor for signs of aspiration, Aspiration Precaution - Monitor for signs of aspiration, and Aspiration Precaution - HO B (head of bed) elevated above 30 degrees while receiving tube feed. On 06/08/2021 the following precautions were added for the patient: Fall Precaution - Bed alarm, Fall Precaution - TABS alarm, and Fall Precaution - Wheel chair alarm. On 06/10/2021 the following precautions were added for the patient: Fall Precaution - Bed alarm, Fal l Precaution - TABS alarm, and Fall Precaution - Wheel chair alarm. The following precautions were removed for the patient: Fall Precaution - Bed alarm, Fall Precaution - TABS alarm, Fall Precaution - Wheel chair alarm, Fall Precaution - Bed alarm, Fall Precaution - T ABS alarm, and Fall Precaution - Wheel chair alarm. On 06/09/2021 the following precautions were added for the patient: Weight Bearing Precaution - WBAT right LE. On 06/10/2021 the following precautions were removed for the patient: Weight Bearing Precaution - WB AT right LE. The following precautions were added for the patient: Weight Bearing Precaution - WBAT right LE. On 06/11/2021 the following precautions were removed for the patient: Weight Bearing Precaution - WBA T right LE. The following precautions were added for the patient: Weight Bearing Precaution - WBAT right LE. DIET - LIQUID TEXTURE: On 06/08/2021 Pt was upgraded to Regular Diet - Liquid Texture. DIET - SOLID TEXTURE: On 06/08/2021 Pt was upgraded to Regular Diet - Solid Texture. DIET TYPE: On 06/08/2021 Pt was changed to 60g consistent carbohydrate (ADA 1800/2000) Diet Type. FALL PRECAUTION: TUBE FEED: On 06/08/2021 Pt was changed to N/A Tube Feed. WEIGHT BEARING PRECAUTION: DISCHARGE PHYSICAL EXAM - Gen Alert and awake Lying in bed No apparent distress Oriented to: person, time, and place - Skin No breakdown No abnormalities - Eyes No abnormalities - ENMT No abnormalities - Neck No abnormalities - CVS RRR - Chest No abnormalities - Abd Obese, soft, nontender - GI Non distended Deferred - No abnormalities - Ext no edema - MSK 4+/5 weakness in right lower extremity - Neuro 4/5 strength right upper and lower extremities. - Psych No abnormalities FUNCTIONAL STATUS: - Self-Care A. Eating 7-Ind B. Grooming 6-Lm C. Bathing 6-Lm D. Dressing - Upper 6-Lm E. Dressing - Lower 6-Lm F. Toileting 6-Lm - Sphincter Control G. Bladder control 6-Lm H. Bowel control 6-Lm - Transfers Control I. Bed/Chair/Wheelchair 6-Lm J. Toilet 6-Lm K. Tub/Shower 6-Lm - Locomotion L. Walk/Wheelchair (B) 6-Lm M. Stairs 4-Gabby - Communication N. Comprehension (B) 6-Lm O. Expression (B) 6-Lm - Social Cognition P. Social Interaction 6-Lm Q. Problem Solving 6-Lm R. Memory 6-Lm - Endurance Good - Balance Good - Safety Awareness Good QI SCORES: - Self-Care A. Eating 04-Supervision or touching assistance B. Oral hygiene 03-Partial/moderate assistance C. Toileting hygiene 02-Substantial/maximal assistance E. Shower/bathe self 88-Not attempted due to medical condition or safety concerns F. Upper body dressing 02-Substantial/maximal assistance G. Lower body dressing 02-Substantial/maximal assistance H. Putting on/taking off footwear 02-Substantial/maximal assistance - Mobility A. Roll left and right 03-Partial/moderate assistance B. Sit to lying 03-Partial/moderate assistance C. Lying to sitting on side of bed 03-Partial/moderate assistance D. Sit to stand 03-Partial/moderate assistance E. Chair/hxo-me-amwvy transfer 03-Partial/moderate assistance F. Toilet transfer 03-Partial/moderate assistance G. Car transfer 88-Not attempted due to medical condition or safety concerns I. Walk 10 feet 03-Partial/moderate assistance J. Walk 50 feet with two turns 88-Not attempted due to medical condition or safety concerns K. Walk 150 feet 88-Not attempted due to medical condition or safety concerns L. Walking 10 feet on uneven surfaces 88-Not attempted due to medical condition or safety concerns M. 1 step (curb) 88-Not attempted due to medical condition or safety concerns N. 4 steps 88-Not attempted due to medical condition or safety concerns O. 12 steps 88-Not attempted due to medical condition or safety concerns P. Picking up object 88-Not attempted due to medical condition or safety concerns R. Wheel 50 feet with two turns 88-Not attempted due to medical condition or safety concerns S. Wheel 150 feet 88-Not attempted due to medical condition or safety concerns - Bladder and Bowel Bladder continence Bowel continence - Endurance Fair - Balance Fair - Safety Awareness Fair DISCHARGE INSTRUCTIONS: - N/A Aspirin 81 mg and Plavix 75 mg daily. DISCHARGE PLAN, FOLLOW UP CARE PROVISIONS: - Estimated Length of Stay (days) 14. - Consensus on plan Discharge plan has been discussed with primary caregiver. Patient/Family is in agreement with the david n. Primary caregiver is in agreement with the plan. - Patient/Family Goals Return home independently. - Planned Living Setting Upon Discharge Home, to live with Family/Relatives. Transitional Living. 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
== END 2021-06-26 13:40 | disposition home health service (06) | DRG 57 ==
LOC: 5TH 17:15
PROVIDERS: ADMIT Psychiatry & Neurology Neurology with Special Qualifications in Child Neurology; ATTEND Psychiatry & Neurology Neurology with Special Qualifications in Child Neurology
DX: I69.351 Hemiplegia and hemiparesis following cerebral infarction affecting right dominant side (principal); E11.40 Type 2 diabetes mellitus with diabetic neuropathy, unspecified; F17.210 Nicotine dependence, cigarettes, uncomplicated; K21.9 Gastro-esophageal reflux disease without esophagitis; I10 Essential (primary) hypertension; E78.5 Hyperlipidemia, unspecified; J44.9 Chronic obstructive pulmonary disease, unspecified; B35.1 Tinea unguium; E11.51 Type 2 diabetes mellitus with diabetic peripheral angiopathy without gangrene; Z20.822 Contact with and (suspected) exposure to COVID-19
CPT/HCPCS: 36415; 80048; 81003; 81015; 82040; 82947; 83735; 84134; 85025; 87086; 87088; 92523; 97110; 97112; 97116; 97161; 97530; J1650; J1815; J7605; U0003

== ENCOUNTER 2022-07-29 06:24 | Day surgery (SDC) | payer OTHER ==
[2022-07-29] MEDS ORDERED: NA CHLORIDE 0.9% 1,000 ML ONE (06:47)
[2022-07-29] MEDS ORDERED: CEFAZOLIN SODIUM 1 GM/VIAL ONE (06:47)
[2022-07-29] MEDS ORDERED: FENTANYL CITR 100 MCG/2 ML ONE (07:12)
[2022-07-29] MEDS ORDERED: propofoL 200 MG/20 ML VIAL IV ONE (07:13)
[2022-07-29] MEDS ORDERED: dexAMETHasone 10 MG/ML VIAL ONE (07:13)
[2022-07-29] MEDS ORDERED: LIDOCAINE 2% MPF 5 ML VIAL ONE (07:13)
[2022-07-29] MEDS ORDERED: ROCURONIUM 50 MG/5 ML VIAL IV ONE (07:13)
[2022-07-29] MEDS ORDERED: MIDAZOLAM HCL 2 MG/2 ML INJ ONE (07:13)
[2022-07-29] MEDS ORDERED: ONDANSETRON 4 MG/2 ML VIAL ONE (07:15)
[2022-07-29] MEDS ORDERED: LIDOCAINE 1% 20 ML MDV ONE (07:17)
[2022-07-29] MEDS ORDERED: LIDOCAINE 1.5% W/EPI AMP 5 ML ONE (07:43)
[2022-07-29] MEDS ORDERED: EPHEDRINE SULF 50 MG/ML VIAL ONE (08:05)
[2022-07-29] MEDS ORDERED: Mastisol Adhesive Liq ONE (10:22)
[2022-07-29] MEDS: MORPHINE 4 MG/ML SYR ONE ×2 (11:05→11:10)
[2022-07-29] MEDS ORDERED: CODEINE 12mg/APAP 120mg PER 5 ML UCUP ONE (12:40)
[2022-07-29 12:49] VITALS: BP 136/56; TEMP 97.3; O2SAT 95
--- NOTE | 2022-07-30 23:24 | OP ---
Date of Procedure: 07/29/2022 Surgeon: KARLA DIXON Preoperative Diagnoses: 1.Primary hyperparathyroidism. 2.Left inferior lobe parathyroid adenoma. Postoperative Diagnoses: 1.Primary hyperparathyroidism. 2.Left inferior lobe parathyroid adenoma. Procedures: 1.Parathyroid exploration with excision of left inferior lobe parathyroid gland/adenoma. 2.Recurrent laryngeal nerve monitoring with the nerve integrity monitoring system. Anesthesia: General endotracheal anesthesia was administered. I also infiltrated approximately 10 m L of 1.5% lidocaine with 1:200,000 epinephrine at the neck incision site. Estimated Blood Loss: Scant, less than 2 mL. Specimens: Left inferior lobe parathyroid gland/adenoma was removed and sent to Pathology for frozen section analysis, which was indeterminate, permanent section results forthcoming. Findings: Large left inferior lobe parathyroid gland/adenoma with a fluid-filled cyst located in the left inferior lobe, which was encapsulated. Examination of all other glands was normal size and not suspected to be inflamed or suspected to be an adenoma. Complications: None. Disposition: Stable. The patient tolerated the procedure well. Indications For Procedure: Patient is a pleasant 72-year-old female who has had chronic hypercalcemi a and consistently high intact PTH of over 100, which suggest primary hyperparathyroidism. Imaging s can detected a large inferior lobe mass, which was inferior to the thyroid gland proper. This was oh ggestive of a possible parathyroid adenoma, thus these were indications to bring the patient to opera tive suite for the above-mentioned procedure. All questions were answered. Risks versus benefits an d complications were explained in detail, and a consent form was signed, and was placed in the chart. Description Of Procedure: The patient was transferred from the preoperative holding area to the oper ative suite by the Department of Anesthesia, placed on the operating table supine, sedated, and intub ated in normal fashion. Approximately 10 mL of 1.5% lidocaine with 1:200,000 epinephrine was infiltr ated at the neck incision site. Then, the patient was sterilely prepped and draped. An incision was made into a skin crease through the epidermis of the neck skin approximately 2 cm abo ve the sternal notch utilizing a #15 blade scalpel. Once down to the area of the subcutaneous fat, I then dissected through the subcutaneous fat down to the separate platysmal level with monopolar elec trocautery on the setting of 20 for coagulation. I was then able to create inferior and superior fla ps with the monopolar electrocautery. Patient had dehiscent platysma and midline. Once down to the strap muscles, I was able to locate the median raphae, which I divided down the middle vertically uti lizing monopolar electrocautery. Once down to the thyroid fascia, I switched over to the location of thyroid LigaSure instrument and dissected at the area of the left inferior lobe just inferior to the left lobe of the thyroid gland. I was able to locate a large amount of subcutaneous fat and then po sterior to the fat was an encapsulated, enlarged parathyroid gland, which was moderately inflamed and had a fluid-filled cyst attached to the gland. I was able to dissect around the gland easily and wa s able to remove it with the LigaSure and DeBakey forceps. The gland was handed off the field after measuring it to be 2.0 x 1.8 cm in size and then it was taken to Pathology for frozen section analysi s. Results returned indeterminate thus permanent section results were forthcoming. At this point, I ordered a stat intact PTH level, which was drawn while the patient was under anesthesia and this was sent off to the laboratory for analysis. The results returned an intact PTH level 43 and the preope rative level was 156. Thus, this was greater than 50% of the preoperative level that has decreased. Thus, I was confident that we had found a parathyroid adenoma in the left inferior lobe. While wait ing for the intact PTH results, I examined bilateral superior lobes just posterior to the thyroid gla nd and I did not detect any adenomatous tissue. There were 2 parathyroid glands that appeared normal in size and anatomy. The right inferior lobe parathyroid gland was located in fat and I did not det ect any abnormalities of this gland. The wound bed was irrigated with sterile saline and then a dry Valsalva was performed, which was negative for any bleeding. The patient had very little bleeding du ring the procedure. I then reapproximated the strap muscle with one 3-0 Vicryl suture followed by pl atysma closure and subcutaneous tissue closure with 3-0 undyed Vicryl in a simple interrupted fashion . I then reapproximated the dermis and epidermis with 4-0 Monocryl in a subcuticular fashion. Steri -Strips and Dermabond were placed as well as a light dressing. She tolerated the procedure well. Th e plan is to discharge home on antibiotic and analgesic medication and will follow up in 1 to 2 weeks or sooner if needed. VIVIAN/QUIQUE Voice ID: [id number] Report ID: [id number]
== END 2022-07-29 12:45 | disposition home or self-care (01) ==
LOC: OR 06:24
PROVIDERS: ATTEND Otolaryngology Facial Plastic Surgery
PROC: 0GBP0ZZ Excision of Left Inferior Parathyroid Gland, Open Approach (ICD-10-PCS; principal; 2022-07-29 07:30)
DX: D35.1 Benign neoplasm of parathyroid gland (principal); E21.0 Primary hyperparathyroidism; F17.210 Nicotine dependence, cigarettes, uncomplicated; E11.9 Type 2 diabetes mellitus without complications; Z86.73 Personal history of transient ischemic attack (TIA), and cerebral infarction without residual deficits
CPT/HCPCS: 60500; 36415; 82947; 88331; 88305; 88333; 83970 ×2; J2704; J2001; J2250; J3010; J7030; J2405; J0690; J1100

== ENCOUNTER 2023-04-26 17:48 | Observation (INO) | payer OTHER ==
[2023-04-26] MEDS ORDERED: NA CHLORIDE 0.9% 1,000 ML ONE (18:19)
[2023-04-26 18:32] LABS: Absolute Lymphocytes (CBC) 2.9 K/uL (0.7-4.9); Hematocrit 39.3 % (36.0-45.0); Lymphocytes % 25.7 % (15.3-44.8); MCV 83.7 fL (80-100); MPV 8.2 fL (7.6-11.3); Platelets 307 thou/uL (152-406); RBC Red Blood Cell Count 4.69 M/uL (3.86-4.86)
[2023-04-26 18:38] LABS: Protime INR 1.03
[2023-04-26 19:02] LABS: Albumin 3.2 g/dL (3.4-5.0); Bilirubin Direct 0.1 mg/dL (0-0.2); Bilirubin Indirect, Calculated 0.3 mg/dL (0.2-0.8); Bilirubin Total 0.4 mg/dL (0.2-1.0); Magnesium 1.8 mg/dL (1.6-2.4); Potassium 3.9 mEq/L (3.5-5.1); Troponin High Sensitivity 5.4 pg/mL (<58.9)
--- NOTE | 2023-04-26 19:06 | ER ---
Nurse's Notes [facility] Name: Bernie Nolasco Age: 72 yrs Sex: Female : 1950 Arrival Date: 04/26/2023 Time: 17:48 Bed 4 Private MD: Diagnosis: Cellulitis of unspecified part of limb-Left lower extremity Presentation: 04/26 17:58 Chief complaint: Patient states: 04/15. Got in stuck in vehicle. LLE pain since. ll1 Coronavirus screen: Vaccine status: Patient reports receiving the 2nd dose of the covid vaccine. Client denies travel out of the [place] in the last 14 days. At this time, the client does not indicate any symptoms associated with coronavirus-19. Ebola Screen: Patient denies travel to an Ebola-affected area in the 21 days before illness onset. Initial Sepsis Screen: Does the patient meet any 2 criteria? No. Patient's initial sepsis screen is negative. Does the patient have a suspected source of infection? Yes: Bone or joint infection. Risk Assessment: Do you want to hurt yourself or someone else? Patient reports no desire to harm self or others. Onset of symptoms was April 15, 2023. 17:58 Method Of Arrival: Wheelchair ll1 17:58 Acuity: ANA 3 ll1 18:18 Care prior to arrival: None. Mechanism of Injury: fell in between the seats of husbands kc6 truck. Trauma event details: Injury occurred in the [facility]. Triage Assessment: 18:00 General: Appears uncomfortable, Behavior is calm, cooperative, appropriate for age. ll1 Pain: Complains of pain in left leg Quality of pain is described as aching. Historical: - Allergies: 17:59 Propoxyphene HCl; ll1 - PMHx: 17:59 cronic back pain; CVA; diabetes mellitus; Hypertensive disorder; ll1 - PSHx: 17:59 hysterectomy; Left ankle; ll1 - Immunization history:: Adult Immunizations up to date. - Social history:: Smoking status: Patient reports the use of cigarette tobacco products, smokes one pack cigarettes per day. Screenin:10 [facility] ED Fall Risk Assessment (Adult) History of falling in the last 3 months, ld1 including since admission No falls in past 3 months (0 pts). Abuse screen: Denies threats or abuse. Denies injuries from another. Nutritional screening: No deficits noted. Tuberculosis screening: No symptoms or risk factors identified. Assessment: 18:10 General: Appears in no apparent distress. uncomfortable, Behavior is calm, cooperative, ld1 appropriate for age. Pain: Complains of pain in right leg and left leg Pain does not radiate. Pain currently is 8 out of 10 on a pain scale. Quality of pain is described as pressure, throbbing, Pain began 2-3 days ago. Is continuous. Neuro: Level of Consciousness is awake, alert, obeys commands, Oriented to person, place, time, situation. Cardiovascular: Capillary refill < 3 seconds Patient's skin is warm and dry. Rhythm is sinus rhythm. Respiratory: Airway is patent Respiratory effort is even, unlabored. GI: Abdomen is round non-distended. : No signs and/or symptoms were reported regarding the genitourinary system. EENT: No signs and/or symptoms were reported regarding the EENT system. Derm: Wound noted left leg Reports pain that is 8 out of 10 on a pain scale. Musculoskeletal: No signs and/or symptoms reported regarding the musculoskeletal system. 18:45 Reassessment: Patient appears in no apparent distress at this time. No changes from kc6 previously documented assessment. Patient and/or family updated on plan of care and expected duration. Pain level reassessed. Patient is alert, oriented x 3, equal unlabored respirations, skin warm/dry/pink. Vital Signs: 17:58 BP 151 / 66; Pulse 74; Resp 18; Temp 98.1; Pulse Ox 95% on R/A; Weight 105.69 kg; ll1 Height 5 ft. 3 in. ; Pain 10/10; 18:10 BP 138 / 62; Pulse 75; Resp 18; Pulse Ox 100% on R/A; Pain 8/10; ld1 19:40 BP 124 / 55; Pulse 67; Resp 16; Pulse Ox 99% on R/A; rv 21:17 BP 128 / 59; Pulse 65; Resp 15; Temp 98; Pulse Ox 100% on R/A; rv 17:58 Body Mass Index 41.27 (105.69 kg, 160.02 cm) ll1 17:58 Pain Scale: Adult ll1 18:10 Pain Scale: Adult ld1 Jono Coma Score: 19:40 Eye Response: spontaneous(4). Motor Response: obeys commands(6). Verbal Response: rv oriented(5). Total: 15. 21:17 Eye Response: spontaneous(4). Motor Response: obeys commands(6). Verbal Response: rv oriented(5). Total: 15. ED Course: 17:53 Patient arrived in ED. im 17:55 Kita Mendoza FNP-C [facility]. snw 17:55 Suresh Santoyo MD is Attending Physician. snw 17:59 Triage completed. ll1 18:00 Arm band placed on. ll1 18:10 Patient has correct armband on for positive identification. Placed in gown. Bed in low ld1 position. Call light in reach. Side rails up X2. station air traffic control specialist on. Pulse ox on. NIBP on. Door closed. Noise minimized. Warm blanket given. 18:10 No provider procedures requiring assistance completed. ld1 18:17 Montserrat Riggs, BELA is Primary Nurse. kc6 18:18 Inserted saline lock: 22 gauge in right antecubital area, using aseptic technique. kc6 Blood collected. 18:31 XRAY Chest (1 view) In Process Unspecified. EDMS 18:56 US Extremity Venous W Compression Jevon In Process Unspecified. EDMS 18:58 Noel Hodges is Hospitalizing Provider. snw 19:03 Primary Nurse role handed off by Montserrat Riggs, BELA bp 19:03 Indra Ruth, RN is Primary Nurse. bp 21:16 Provided Education on: cellulitis. rv 21:16 Patient admitted, IV remains in place. rv Administered Medications: 18:18 Drug: NS 0.9% IV 1000 ml IV at 125 ml/hr continuous Route: IV; Rate: 125 ml/hr; Site: kc6 right antecubital; 19:29 Follow up: IV Status: Infusion continued upon admission rv 19:10 Drug: Clindamycin IVPB 600 mg IVPB once over 30 mins; (mix in 50 mL) Route: IVPB; rv Infused Over: 30 mins; Site: right antecubital; 19:29 Follow up: Response: No adverse reaction; IV Status: Completed infusion; IV Intake: 50mlrv 19:29 Drug: Cefepime IVPB 1 grams IVPB at 200 ml/hr once over 30 mins; (mix in NS 100 mL) rv Route: IVPB; Rate: 200 ml/hr; Infused Over: 30 mins; Site: right antecubital; 20:09 Follow up: Response: No adverse reaction; IV Status: Completed infusion; IV Intake: rv 100ml 20:10 Drug: vancoMYCIN IVPB 1 grams IVPB once over 2 hrs Route: IVPB; Infused Over: 2 hrs; rv Site: right antecubital; 21:16 Follow up: IV Status: Infusion continued upon admission rv Medication: 21:16 VIS not applicable for this client. rv Intake: 19:29 IV: 50ml; Total: 50ml. rv 20:09 IV: 100ml; Total: 150ml. rv Outcome: 19:05 Decision to Hospitalize by Provider. snw 21:16 Admitted to Med/surg accompanied by tech, via stretcher, room 211, with chart, Report rv called to MIGUELITO CRAMER 21:16 Condition: good 21:16 Instructed on the need for admit, 21:33 Patient left the ED. rv Signatures: Dispatcher [employer] EDMS Kita Mendoza, PROVIDER RELATIONS COORDINATOR-C PROVIDER RELATIONS COORDINATOR-Csnw Indra Ruth, RN RN bp Haroon Bond RN RN rv Sam Fitzgerald RN RN ll1 Melinda Kee RN RN ld1 Montserrat Riggs RN RN kc6 Megan Gonzalez
--- NOTE | 2023-04-26 19:06 | EDPHYS ---
Physician Documentation [facility] Name: Bernie Nolasco Age: 72 yrs Sex: Female : 1950 Arrival Date: 04/26/2023 Time: 17:48 Bed 4 Private MD: ED Physician Suresh Santoyo HPI: 04/26 18:02 This 72 yrs old Female presents to ER via Wheelchair with complaints of Fall Injury - snw On 04/15, Leg Pain. 18:02 Onset: The symptoms/episode began/occurred Pt getting into truck on 04/15, left leg snw (pt's stronger leg) gave out and she fell in between the seat and the dash. Family had a time getting her out and her legs were "scraped up". Right leg improved but left lower leg red, hot, swollen, and tender to touch. Associated injuries: The patient sustained bilateral lower ext - left greater than right. It is unknown whether or not the patient has had similar symptoms in the past. It is unknown whether or not the patient has recently seen a physician. Historical: - Allergies: 17:59 Propoxyphene HCl; ll1 - PMHx: 17:59 cronic back pain; CVA; diabetes mellitus; Hypertensive disorder; ll1 - PSHx: 17:59 hysterectomy; Left ankle; ll1 - Immunization history:: Adult Immunizations up to date. - Social history:: Smoking status: Patient reports the use of cigarette tobacco products, smokes one pack cigarettes per day. ROS: 18:08 Constitutional: Negative for fever, chills, and weight loss, Eyes: Negative for injury, snw pain, redness, and discharge, ENT: Negative for injury, pain, and discharge, Neck: Negative for injury, pain, and swelling, Cardiovascular: Negative for chest pain, palpitations, and edema, Respiratory: Negative for shortness of breath, cough, wheezing, and pleuritic chest pain, Abdomen/GI: Negative for abdominal pain, nausea, vomiting, diarrhea, and constipation, Back: Negative for injury and pain, : Negative for injury, bleeding, discharge, and swelling, Skin: Negative for injury, rash, and discoloration, Neuro: Negative for headache, weakness, numbness, tingling, and seizure, Psych: Negative for depression, anxiety, suicide ideation, homicidal ideation, and hallucinations, 18:08 MS/extremity: Positive for injury or acute deformity, contusion, erythema, pain, swelling, of the left leg, Exam: 18:08 Head/Face: Normocephalic, atraumatic. Eyes: Pupils equal round and reactive to light, snw extra-ocular motions intact. Lids and lashes normal. Conjunctiva and sclera are non-icteric and not injected. Cornea within normal limits. Periorbital areas with no swelling, redness, or edema. ENT: Nares patent. No nasal discharge, no septal abnormalities noted. Tympanic membranes are normal and external auditory canals are clear. Oropharynx with no redness, swelling, or masses, exudates, or evidence of obstruction, uvula midline. Mucous membranes moist. Neck: Trachea midline, no thyromegaly or masses palpated, and no cervical lymphadenopathy. Supple, full range of motion without nuchal rigidity, or vertebral point tenderness. No Meningismus. Chest/axilla: Normal chest wall appearance and motion. Nontender with no deformity. No lesions are appreciated. Cardiovascular: Regular rate and rhythm with a normal S1 and S2. No gallops, murmurs, or rubs. Normal PMI, no JVD. No pulse deficits. Respiratory: Lungs have equal breath sounds bilaterally, clear to auscultation and percussion. No rales, rhonchi or wheezes noted. No increased work of breathing, no retractions or nasal flaring. Abdomen/GI: Soft, non-tender, with normal bowel sounds. No distension or tympany. No guarding or rebound. No evidence of tenderness throughout. Neuro: Awake and alert, GCS 15, oriented to person, place, time, and situation. Cranial nerves II-XII grossly intact. Baseline right sided weakness. Sensory grossly intact. Cerebellar exam normal. gait not tested Psych: Awake, alert, with orientation to person, place and time. Behavior, mood, and affect are within normal limits. 18:08 Constitutional: The patient appears alert, awake, obese, unkempt, 18:08 Skin: Appearance: normal except for affected area, cellulitis, that is moderate, that is severe, well demarcated, on the left trevino and anterior aspect of left ankle, Vital Signs: 17:58 BP 151 / 66; Pulse 74; Resp 18; Temp 98.1; Pulse Ox 95% on R/A; Weight 105.69 kg; ll1 Height 5 ft. 3 in. ; Pain 10/10; 18:10 BP 138 / 62; Pulse 75; Resp 18; Pulse Ox 100% on R/A; Pain 8/10; ld1 19:40 BP 124 / 55; Pulse 67; Resp 16; Pulse Ox 99% on R/A; rv 21:17 BP 128 / 59; Pulse 65; Resp 15; Temp 98; Pulse Ox 100% on R/A; rv 17:58 Body Mass Index 41.27 (105.69 kg, 160.02 cm) ll1 17:58 Pain Scale: Adult ll1 18:10 Pain Scale: Adult ld1 [place] Coma Score: 19:40 Eye Response: spontaneous(4). Motor Response: obeys commands(6). Verbal Response: rv oriented(5). Total: 15. 21:17 Eye Response: spontaneous(4). Motor Response: obeys commands(6). Verbal Response: rv oriented(5). Total: 15. MDM: 18:05 Differential diagnosis: cellulitis, dvt, fracture. Data reviewed: vital signs, nurses snw notes. Consideration of Admission/Observation Escalation of care including admission/observation considered. Historians other than the Patient: Spouse/Significant Other: . Care significantly affected by the following chronic conditions: Diabetes, Hypertension, Obesity, left sided CVA 2 years ago. Counseling: I had a detailed discussion with the patient and/or guardian regarding the historical points, exam findings, and any diagnostic results supporting the discharge/admit diagnosis, the presence of at least one elevated blood pressure reading (>120/80) during this emergency department visit, the need for further work-up and treatment in the hospital. 18:11 Patient medically screened. snw 18:53 Management of patient was discussed with the following: Hospitalist: Atilio Muhammad. ED snw course: concern for nec fasc, will CT area and begin wide spectrum abx. 04/26 18:02 Order name: Basic Metabolic Panel; Complete Time: 19:06 snw 04/26 18:02 Order name: CBC with Diff; Complete Time: 18:36 snw 04/26 18:02 Order name: LFT's; Complete Time: 19:06 snw 04/26 18:02 Order name: Magnesium; Complete Time: 19:06 snw 04/26 18:02 Order name: NT PRO-BNP; Complete Time: 19:06 snw 04/26 18:02 Order name: PT-INR; Complete Time: 18:46 snw 04/26 18:02 Order name: Troponin HS; Complete Time: 19:06 snw 04/26 18:02 Order name: Blood Culture Adult (2) snw 04/26 18:02 Order name: Lactate w/ 2H reflex if indic.; Complete Time: 19:06 snw 04/26 18:02 Order name: XRAY Chest (1 view); Complete Time: 13:34 snw 04/26 18:02 Order name: US Extremity Venous W Compression Jevon; Complete Time: 13:34 snw 04/26 19:01 Order name: Lower Ext Wo Con W/ Mpr; Complete Time: 13:34 EDMS 04/26 18:02 Order name: EKG; Complete Time: 18:03 snw 04/26 19:42 Order name: CONS Physician Consult EDMS 04/26 18:02 Order name: Cardiac monitoring; Complete Time: 18:10 snw 04/26 18:02 Order name: EKG - Nurse/Tech; Complete Time: 18:10 snw 04/26 18:02 Order name: IV Saline Lock; Complete Time: 18:18 snw 04/26 18:02 Order name: Labs collected and sent; Complete Time: 18:18 snw 04/26 18:02 Order name: O2 Per Protocol; Complete Time: 18:04 snw 04/26 18:02 Order name: O2 Sat Monitoring; Complete Time: 18:04 snw EC:15 Rate is 71 beats/min. Rhythm is regular. QRS interval is prolonged. Q waves are Present snw in leads III, aVR. Clinical impression: NSR w/ Non-specific ST/T Changes. Administered Medications: 18:18 Drug: NS 0.9% IV 1000 ml IV at 125 ml/hr continuous Route: IV; Rate: 125 ml/hr; Site: kc6 right antecubital; 19:29 Follow up: IV Status: Infusion continued upon admission rv 19:10 Drug: Clindamycin IVPB 600 mg IVPB once over 30 mins; (mix in 50 mL) Route: IVPB; rv Infused Over: 30 mins; Site: right antecubital; 19:29 Follow up: Response: No adverse reaction; IV Status: Completed infusion; IV Intake: 50mlrv 19:29 Drug: Cefepime IVPB 1 grams IVPB at 200 ml/hr once over 30 mins; (mix in NS 100 mL) rv Route: IVPB; Rate: 200 ml/hr; Infused Over: 30 mins; Site: right antecubital; 20:09 Follow up: Response: No adverse reaction; IV Status: Completed infusion; IV Intake: rv 100ml 20:10 Drug: vancoMYCIN IVPB 1 grams IVPB once over 2 hrs Route: IVPB; Infused Over: 2 hrs; rv Site: right antecubital; 21:16 Follow up: IV Status: Infusion continued upon admission rv Disposition: 21:05 Co-signature as Attending Physician, Suresh Santoyo MD I reviewed the patient's care rt provided by the Advanced Practice Provider and agree with the diagnosis and treatment plan. Disposition Summary: 04/26/23 19:05 Hospitalization Ordered Notes: Hospitalization Status: Inpatient Admission snw Provider: Noel Hodges [place] [facility] Condition: Stable snw Problem: new snw Symptoms: are unchanged snw Bed/Room Type: Standard snw Room Assignment: 211(04/26/23 21:03) cm10 Diagnosis - Cellulitis of unspecified part of limb - Left lower extremity snw Forms: - Medication Reconciliation Form snw - SBAR form snw - Leadership Thank You Letter snw Signatures: Dispatcher [employer] EDMS Kita Mendoza FNP-C GRAPHIC ENGINEER-Csnw Haroon Bond RN RN rv Sam Fitzgerald RN RN ll1 Montserrat Riggs RN RN kc6 Suresh Santoyo MD MD rt Lakshmi Friedman RN RN cm10 Corrections: (The following items were deleted from the chart) 18:11 18:05 Care significantly affected by the following chronic conditions: Diabetes, snw Hypertension, Obesity, right sided CVA 2 years ago. snw 19:01 18:57 CT-LOWER EXTREMITY W/O CONTR ordered. EDSD EDMS 21:03 19:05 snw cm10
[2023-04-26] MEDS ORDERED: VANCOMYCIN 1 GM/VIAL ONE (19:08)
[2023-04-26] MEDS ORDERED: CLINDAMYCIN 600MG/D5W 50 ML IV ONE (19:08)
[2023-04-26] MEDS ORDERED: NA CHLORIDE 0.9% 250 ML ONE (19:08)
[2023-04-26] MEDS ORDERED: CEFEPIME 1 GM/VIAL ONE (19:09)
[2023-04-26] MEDS ORDERED: NA CHLORIDE 0.9% 100 ML ONE (19:09)
--- NOTE | 2023-04-26 19:20 | RAD REPORT ---
EXAM DESCRIPTION: US - Extrem Venous W Compress Jevon - 04/26/2023 6:54 pm CLINICAL HISTORY: Pain;Swelling Bilateral leg edema and swelling. COMPARISON: Extrem Venous W Compress Jevon dated 10/26/2022 TECHNIQUE: Real-time sonographic interrogation of the left and right lower extremity deep venous sys tems was performed. FINDINGS: Normal compressibility, flow augmentation, phasic flow and spontaneous flow is identified in both the left and right lower extremity deep venous systems. Hypoechoic nonspecific collection is seen in the area of interest, query hematoma or abscess. IMPRESSION: No sonographic evidence of left or right lower extremity deep venous thrombosis.
--- NOTE | 2023-04-26 19:20 | RAD REPORT ---
EXAM DESCRIPTION: RAD - Chest Single View - 04/26/2023 6:30 pm CLINICAL HISTORY: fall Chest pain. COMPARISON: Chest Single View dated 06/06/2021; Chest Pa And Lat (2 Views) dated 11/23/2018; CHEST PA AND LAT 2 VIEW dated 09/03/2015 FINDINGS: Portable technique limits examination quality. The lungs are grossly clear. The heart is moderately enlarged in size. No displaced fractures. IMPRESSION: No acute intrathoracic process suspected.
--- NOTE | 2023-04-26 20:16 | RAD REPORT ---
EXAM DESCRIPTION: CT - Lower Ext Wo Con W/ Mpr - 04/26/2023 7:44 pm CLINICAL HISTORY: eval wound Leg pain and swelling. COMPARISON: No comparisons FINDINGS: Skin thickening with subcutaneous reticulation is seen involving the left leg and ankle. A long the anterolateral tibial soft tissues there is focal thickened mildly hyperdense subcutaneous ma terial present measuring approximately 4 x 2 cm which could be a hematoma, infection not excluded. Postsurgical chronic changes at noted in the ankle. No osteomyelitis. No soft tissue gas. All CT scans are performed using dose optimization technique as appropriate and may include automated exposure control or mA/KV adjustment according to patient size. IMPRESSION: Hyperdense 4 x 2 cm crescentic collection in the subcutaneous soft tissues anterolateral tibia could represent a hematoma. No gas is seen to suggest abscess, however infection possibility s hould be clinically evaluated. No radiopaque foreign body. No soft tissue gas. No osteomyelitis.
--- NOTE | 2023-04-26 20:17 | P.HP ---
Certification for Inpatient Patient admitted to: Inpatient With expected LOS: <2 Midnights Patient will require the following post-hospital care: None Practitioner: I am a practitioner with admitting privileges, knowledge of patient current condition, hospital course, and medical plan of care. Services: Services provided to patient in accordance with Admission requirements found in Title 42 Section 412.3 of the Code of Federal Regulations Patient History Date of Service: 04/26/23 Reason for admission: Left lower extremity swelling History of Present Illness: 69-year-old female with a past medical history of chronic back pain, diabetes, hypertension, CVA, presents to the emergency room with left lower extremity leg pain. She reports injury to the left lower extremity on 04-15, she reports getting her leg stuck in a truck. She reported left lower extremity leg pain, edema that is getting progressively worse. She reports mild low-grade fever started today, no reported chills, nausea vomiting, dysuria, chest pain, shortness of breath. Plan to admit for Cellulitis of unspecified part of limb - Left lower extremity, surgery to consult, infectious disease consult antibiotic management.Laboratory evaluation CBC 11.10, no left shift, lactic normal 1.4, mild hypocalcemia 8.3 hopple albumin 3.2 IMPRESSION: Hyperdense 4 x 2 cm crescentic collection in the subcutaneous soft tissues anterolateral tibia could represent a hematoma. No gas is seen to suggest abscess, however infection possibility should be clinically evaluated, chest x-ray no acute intrathoracic process, venous Doppler ultrasound IMPRESSION: No sonographic evidence of left or right lower extremity deep venous thrombosis. Allergies propoxyphene HCl [From Darvon] Adverse Reaction (Verified 07/29/22 07:22) Fever/"talk backwards" Home Medications: lisinopriL [Prinivil*] 10 mg PO BID 09/04/15 Aspirin 81 mg PO DAILY 06/06/21 Benzonatate [Tessalon Perle*] 1 cap PO TIDP PRN 06/06/21 Dulaglutide [Trulicity] 3 mg SQ SEECOM 06/06/21 Insulin Glargine,Hum.rec.anlog [Lantus] 70 unit SQ DAILY WITH BREAKFAST 06/06/21 Arformoterol Tartrate [Brovana] 15 mcg NEB BIDRESP #60 vial.neb 06/08/21 Atorvastatin Calcium [Lipitor] 80 mg PO BEDTIME #30 tab 11/15/21 Clopidogrel Bisulfate [Plavix*] 75 mg PO DAILY #30 tablet 06/08/21 Hydrocodone Bit/Acetaminophen [Hydrocodon-Acetaminophen 5-325] 1 tab PO Q4H PRN 06/08/21 Gabapentin 400 mg PO TID #90 06/26/21 Lidocaine 4% Patch [Lidoderm 5% Patch*] 1 patch TOP DAILY patch 06/26/21 Mupirocin Oint [Bactroban 2% Ointment*] 1 appl TOP BID #1 tube 06/26/21 Omeprazole 20 mg PO DAILY 07/27/22 Rivaroxaban [Xarelto] 20 mg PO DAILY 07/27/22 - Past Medical/Surgical History Diabetic: Yes -: DM -: HTN -: COPD -: Hyperlipidemia -: CVA 05/2021 -: tobacco abuse -: GERD -: dm neuropathy -: Bilateral knee surgery -: Hysterectomy -: Back surgery Psychosocial/ Personal History: Patient lives at home. She is - Family History Father -: Diabetes Mother -: Heart disease - Social History Alcohol use: No CD- Drugs: No Caffeine use: No Review of Systems 10-point ROS is otherwise unremarkable Physical Examination - Physical Exam General: Alert, In no apparent distress, Oriented x3 HEENT: Atraumatic, Normocephalic, PERRLA Neck: Supple, 2+ carotid pulse no bruit, JVD not distended Respiratory: Clear to auscultation bilaterally, Normal air movement Cardiovascular: Normal pulses, Regular rate/rhythm, Normal S1 S2, Edema (+2 bilateral lower extremity edema) Capillary refill: <2 Seconds Gastrointestinal: Normal bowel sounds, Soft and benign Musculoskeletal: Other (Left lower extremity foot pain worse with range of motion, tender to touch) Integumentary: Other (Left lower extremity tender to touch, edema. No open sores) Neurological: Normal speech, Normal strength at 5/5 x4 extr, Normal tone, Sensation intact - Studies Laboratory Data (last 24 hrs) 04/26/23 04/26/23 04/26/23 18:08 18:08 18:08 WBC 11.10 H Hgb 13.0 Hct 39.3 Plt Count 307 PT 11.3 INR 1.03 Sodium 137 Potassium 3.9 BUN 13 Creatinine 0.97 Glucose 316 H Magnesium 1.8 Total Bilirubin 0.4 AST 5 L ALT 15 Alkaline Phosphatase 119 H Assessment and Plan - Plan Assessment plan cellulitis left lower extremity acute Leukocytosis acute Hypocalcemia History chronic back pain diabetes mellitus type II Essential hypertension History of CVA DVT prophylaxis Assessment plan cellulitis left lower extremity Leukocytosis Surgery consult, infectious disease consult IV antibiotics, vancomycin, clindamycin, as needed analgesics, as needed antiemetics CT of the left lower extremity IMPRESSION: Hyperdense 4 x 2 cm crescentic collection in the subcutaneous soft tissues anterolateral tibia could represent a hematoma. No gas is seen to suggest abscess, however infection possibility CBC 11.10, no left shift, lactic normal 1.4, She reports injury to the left lower extremity on 04-15, she reports getting her leg stuck in a truck. She reported left lower extremity leg pain, edema that is getting progressively worse. She reports mild low-grade fever, no reported chills, chest x-ray no acute intrathoracic process, venous Doppler ultrasound IMPRESSION: No sonographic evidence of left or right lower extremity deep venous thrombosis Hypocalcemia Trend electrolytes replace as needed mild hypocalcemia 8.3 History chronic back pain diabetes mellitus type II Essential hypertension Sliding scale insulin, Accu-Cheks Resume appropriate home meds History of CVA DVT prophylaxis Diet n.p.o. after midnight Full code Discharge Plan: Home Plan to discharge in: 48 Hours - Advance Directives Does patient have a Living Will: No Does patient have a Durable POA for Healthcare: No - Code Status/Comfort Care Code Status: Full Code Physician Review: Patient Assessed, Agree with Above Assessment and Plan Critical Care: No Time Spent Managing Pts Care (In Minutes): 50
[2023-04-26] MEDS ORDERED: MORPHINE 2 MG/ML SYR IV PRN (21:49)
[2023-04-26] MEDS ORDERED: ACETAMINOPHEN 500 MG TAB PO PRN (21:49)
[2023-04-26] MEDS ORDERED: ONDANSETRON 4 MG/2 ML VIAL IV PRN (21:49)
[2023-04-26] MEDS: LACTOBACILLUS/ACIDOPHILUS TAB PO SCH (22:46)
[2023-04-26] MEDS: INSULIN -REGULAR HUMAN 50 UNIT/0.5 ML ML SQ SCH (22:46)
[2023-04-26 22:48] VITALS: BMI 41.3
[2023-04-26] MEDS: HYDROCODONE/APAP 5/325 MG TAB PO PRN (22:50)
[2023-04-26] MEDS ORDERED: VANCOMYCIN 1 GM in NA CHLORIDE 0.9% 250 ML IVPB ONE (23:00)
[2023-04-27] MEDS ORDERED: CLINDAMYCIN INJ 600 MG in NA CHLORIDE 0.9% 50 ML IV SCH (04:00)
[2023-04-27] MEDS ORDERED: CLINDAMYCIN 600MG/D5W 50 ML IV ONE (04:07)
[2023-04-27] MEDS ORDERED: VANCOMYCIN 1.5 GM in NA CHLORIDE 0.9% 500 ML IVPB SCH ×2 (06:00→21:00)
[2023-04-27] MEDS ORDERED: INFLUENZA VACCINE (for 6+ mo) 0.5 ML DOSE IMVAC ONE (08:00)
[2023-04-27] MEDS ORDERED: BUPIVACAINE 0.5% PF 10 ML VIAL ONE ×2 (08:34→09:21)
[2023-04-27] MEDS ORDERED: CLINDAMYCIN 600MG/D5W 50 ML IV SCH (09:00)
[2023-04-27] MEDS: LACTOBACILLUS/ACIDOPHILUS TAB PO SCH (09:00)
--- NOTE | 2023-04-27 09:04 | P.CNS ---
Date of Consult: 04/27/23 Reason for consult: Left leg abscess History of present illness: Patient is a 72-year-old female comes in with 2-week history of injury to her left leg while trying to get out of a pickup truck. Patient had redness and swelling which became worse with the pain. Patient came to the ER was worked up. CT scan was done which showed a hematoma that could be infected. Patient denies sore throat, runny nose, cough, headache, dizziness or chest pain. Patient did report low-grade fevers at home. Review of systems: Otherwise unremarkable Past medical history: Hypertension, diabetes, hyperlipidemia, GERD Past surgical history: Bilateral knee surgery, hysterectomy and back surgery Allergies: Propoxyphene Social history: Patient does smoke has been counseled Family history: Noncontributory Vital signs: Stable, currently afebrile Physical exam: Awake, alert and oriented x3 Head and neck exam: No masses Chest: Clear Heart: S1-S2 Abdomen: Soft Extremity: Diminished dorsalis pedis and posterior tibial pulses, redness and induration in the lower left leg with central fluctuance on the anteromedial aspect of the lower left leg with tenderness and redness. Neuro: Nonfocal Diagnostic data: White count 11,000, CT of the leg shows a fluid collection which could be a hematoma or an abscess Assessment: Left leg abscess with cellulitis probably secondary to infected hematoma Plan/recommendation: Admit, n.p.o., IV fluid, IV antibiotics and to the OR for incision, drainage and debridement of a left leg abscess. Patient and family understand risk, benefits and alternatives and agreed to procedure. CC:
[2023-04-27] MEDS ORDERED: NA CHLORIDE 0.9% 1,000 ML ONE (09:12)
--- NOTE | 2023-04-27 09:23 | P.CNS ---
Date of Consult: 04/27/23 Reason for Consult: cellulitis of left lower extremity Chief Complaint: Left lower extremity swelling History of Present Illness: Patient is a 72-year-old female with a past medical history of diabetes type 2, hypertension, chronic back pain, COPD, prior CVA who presented to the ED with complaints of left lower extremity pain, edema, and erythema. She reports that her leg stuck in a truck 2 weeks ago that developed into a bruise. Since then the pain and swelling have been getting progressively worse which prompted her to come to the emergency room. Patient was admitted for left lower extremity cellulitis. General surgery and infectious disease were consulted. Allergies propoxyphene HCl [From Darvon] Adverse Reaction (Verified 07/29/22 07:22) Fever/"talk backwards" Home medications list reviewed: Yes Home Medications: lisinopriL [Prinivil*] 10 mg PO BID 09/04/15 Aspirin 81 mg PO DAILY 06/06/21 Benzonatate [Tessalon Perle*] 1 cap PO TIDP PRN 06/06/21 Dulaglutide [Trulicity] 3 mg SQ SEECOM 06/06/21 Insulin Glargine,Hum.rec.anlog [Lantus] 70 unit SQ DAILY WITH BREAKFAST 06/06/21 Arformoterol Tartrate [Brovana] 15 mcg NEB BIDRESP #60 vial.neb 06/08/21 Atorvastatin Calcium [Lipitor] 80 mg PO BEDTIME #30 tab 06/08/21 Clopidogrel Bisulfate [Plavix*] 75 mg PO DAILY #30 tablet 06/08/21 Gabapentin 400 mg PO TID #90 06/26/21 Lidocaine 4% Patch [Lidoderm 5% Patch*] 1 patch TOP DAILY patch 06/26/21 Mupirocin Oint [Bactroban 2% Ointment*] 1 appl TOP BID #1 tube 06/26/21 Omeprazole 20 mg PO DAILY 07/27/22 Rivaroxaban [Xarelto] 20 mg PO DAILY 07/27/22 Hydrocodone/Acetaminophen [Hydrocodon-Acetaminophen 5-325] 2 each PO Q12HP #30 tab 04/27/23 Minocycline HCl 100 mg PO BID #14 cap 04/27/23 Smz./Tmp. [Bactrim Ds 800 MG/160 MG] 1 tab PO BID #14 tab 04/27/23 - Past Medical/Surgical History Diabetic: Yes -: DM -: HTN -: COPD -: Hyperlipidemia -: CVA 05/2021 -: tobacco abuse -: GERD -: dm neuropathy -: Bilateral knee surgery -: Hysterectomy -: Back surgery Psychosocial/ Personal History: Patient lives at home. She is - Family History Father Medical History: Diabetes Mother Medical History: Heart disease - Social History Smoking Status: Current every day smoker Alcohol use: No CD- Drugs: No Caffeine use: Yes Place of Residence: Home Review of Systems Integumentary: As per HPI Physical Examination Temp Pulse Resp BP Pulse Ox 97.2 F 65 16 126/55 L 95 04/27/23 04:00 04/27/23 04:00 04/27/23 04:00 04/27/23 04:00 04/27/23 04:00 General: Alert, In no apparent distress, Oriented x3 HEENT: Atraumatic, Normocephalic Neck: Supple Respiratory: Clear to auscultation bilaterally, Normal air movement, Other (on room air) Cardiovascular: Normal pulses, Regular rate/rhythm, Edema (BLE) Gastrointestinal: Normal bowel sounds, Soft and benign Integumentary: Tenderness/swelling (LLE), Erythema (LLE) Laboratory Data - Reviewed Microbiology Data - Reviewed Imagings Data: - Reviewed Conclusions/Impression: Problem List Cellulitis of Left Lower Extremity Diabetes Mellitus type II COPD Hypertension Hyperlipidemia GERD Hx CVA Cellulitis of left lower extremity - CT LLE 04/26: "Hyperdense 4 x 2 cm crescentic collection in the subcutaneous soft tissues anterolateral tibia could represent a hematoma. No gas is seen to suggest abscess, however infection possibility should be clinically evaluated. No radiopaque foreign body. No soft tissue gas. No osteomyelitis." - Venous ultrasound LLE 04/26: " No sonographic evidence of left or right lower extremity deep venous thrombosis." - On Vancomycin (started 04/26) - Blood cultures 04/26: Pending - Leukocytosis (WBC 11.1). Afebrile. - General surgery Dr. Li consulted. Planning for debridement today 04/27. Recommendations - Scheduled for debridement today by Dr. Li. Obtain wound/abscess culture. - Follow up with blood culture results - Monitor WBC and fever trends - Keep left leg elevated to help reduce swelling - Wound care per Dr. Li. - Depending on culture results, consider switch to Bactrim PO upon discharge Case discussed with Yvette Davies
[2023-04-27] MEDS ORDERED: FENTANYL CITR 100 MCG/2 ML ONE (09:28)
[2023-04-27] MEDS ORDERED: ONDANSETRON 4 MG/2 ML VIAL ONE (09:28)
[2023-04-27] MEDS ORDERED: LIDOCAINE 2% MPF 5 ML VIAL ONE (09:28)
[2023-04-27] MEDS ORDERED: propofoL 200 MG/20 ML VIAL IV ONE (09:28)
--- NOTE | 2023-04-27 10:01 | P.OP ---
Date of Service: 04/27/23 Preop diagnosis: Infected hematomaabscess left lower leg with cellulitis Postop diagnosis: Same Procedure performed: Incision, drainage and debridement of left leg infected hematoma Surgeon: Giancarlo Li MD Director Of Primary Care: None Estimated blood loss: Minimal Specimen: Clot for culture and sensitivity Findings: As above Anesthesia: General Complications: None Drains: None Fluids and blood products: Nonapplicable Disposition: Recovery room Operative note: Patient brought to the OR placed in supine position. General anesthesia begun. Patient prepped and draped in the usual sterile fashion. Marcaine 0.5% infiltrated locally. 15 blade used to make a 2.5 cm incision over the anterolateral aspect of the lower leg on the left side. Subcutaneous tissue divided and hematoma under pressure evacuated. Cultures done wound irrigated and tissue debrided. Bleeding controlled with cautery. Wet-to-dry normal saline dressing change applied. Patient tolerated the procedure in stable condition and taken to recovery room in good general condition. CC:
[2023-04-27] MEDS: HYDROMORPHONE HCL 1 MG/ML INJ ONE ×2 (10:07→10:12)
[2023-04-27 10:22] VITALS: O2SAT 95
[2023-04-27] MEDS: INSULIN -REGULAR HUMAN 50 UNIT/0.5 ML ML SQ SCH ×2 (10:45→13:23)
[2023-04-27] MEDS: HYDROCODONE/APAP 5/325 MG TAB PO PRN (13:26)
--- NOTE | 2023-04-27 16:38 | EKG ---
Test Date: 2023-04-26 Test Time: 18:12:54 [employer]: ESTELA MEASUREMENT RESULTS: Intervals: Rate: 71 SD: 216 QRSD: 70 QT: 374 QTc: 406 [place]: P: 29 SD: 216 QRS: 11 T: 27 INTERPRETIVE STATEMENTS: Sinus rhythm with 1st degree AV block with fusion complexes Low voltage QRS Nonspecific ST abnormality Abnormal ECG Compared to ECG 06/06/2021 10:50:21 Fusion complex(es) now present Low QRS voltage now present ST (T wave) deviation now present Electronically Signed On 04-27-23 16:37:33 CDT by Will Patel
[2023-04-27 16:55] VITALS: BP 134/63; TEMP 97.2
[2023-04-27] MEDS ORDERED: VANCOMYCIN 2 GM in NA CHLORIDE 0.9% 500 ML IVPB SCH (21:00)
== END 2023-04-27 17:52 | disposition home health service (06) ==
LOC: ER 17:48 → ERHOLD 19:39 → INTOOBSV 19:39 → 2ND 21:09
PROVIDERS: ADMIT Hospitalist; ATTEND Hospitalist
PROC: 0Y9J0ZX Drainage of Left Lower Leg, Open Approach, Diagnostic (ICD-10-PCS; principal; 2023-04-27 09:00)
DX: L02.416 Cutaneous abscess of left lower limb (principal); L03.116 Cellulitis of left lower limb; S80.12XA Contusion of left lower leg, initial encounter; X58.XXXA Exposure to other specified factors, initial encounter; G89.29 Other chronic pain; E11.9 Type 2 diabetes mellitus without complications; I10 Essential (primary) hypertension; D72.829 Elevated white blood cell count, unspecified; E83.51 Hypocalcemia; M54.9 Dorsalgia, unspecified; L08.9 Local infection of the skin and subcutaneous tissue, unspecified; K21.9 Gastro-esophageal reflux disease without esophagitis; E78.5 Hyperlipidemia, unspecified; J44.9 Chronic obstructive pulmonary disease, unspecified; F17.210 Nicotine dependence, cigarettes, uncomplicated; Z71.3 Dietary counseling and surveillance; Z86.73 Personal history of transient ischemic attack (TIA), and cerebral infarction without residual deficits; Z88.8 Allergy status to other drugs, medicaments and biological substances
CPT/HCPCS: 96365; 96367; 96361; 93005; 87040 ×2; 87070; 85025; 80048; 36415; 83735; 87205; 85610; 82947 ×4; 80076; 83605; 87075; 84484; 83880; 73700; 76377; 71045; 93970; 97116; 97161; 97530; 99285; 10060; J1815 ×3; J2704; J2001; J3010; J2270; J1170; J2405 ×2; J7050 ×2; J7030 ×2; J0692; G0378; J7040